=== PATIENT | female | born 1970 | race Hispanic/Latino ===

== ENCOUNTER 2024-12-27 07:31 | Inpatient (IN) | payer SELFPAY ==
[~2024-12-27] VITALS: Ht 165.1 cm; Wt 99.8 kg
--- NOTE | 2024-12-27 07:45 | ERN ---
General Chief Complaint: Altered Mental Status Stated Complaint: ALTERED MENTAL STATUS Time Seen by MD: 07:39 History of Present Illness Initial Comments 54-year-old female brought in by EMS from home for altered mentation. Normally GCS 15, last known well was last night before bed. Family woke up this morning and found the patient to be more lethargic. Patient does open her eyes and responds to pain. She was moving all limbs. She immediately falls back asleep. She does have a distended abdomen. She was swollen legs. All history was obtained by EMS, there is no family at bedside and patient was unable to provide a history. EMS reports history of diabetes and gastritis. Vital signs of 140/73, 97, 18, 99% on room air Allergies: Coded Allergies: Penicillins (Unverified Allergy, Unknown, 12/27/24) Past Medical History Past Medical History: Diabetes-Type II, GERD Past Surgical History: Unknown ROS Dictation Unable to obtain due to patient's altered mentation Physical Exam Physical Exam Dictation VITAL SIGNS: Reviewed. GENERAL APPEARANCE: Lethargic HEAD AND FACE: Non-traumatic. EYES: PERRL, pink conjunctivas, eyelid no trauma, anterior chamber clear. EARS: Pinnas intact and no signs of trauma or erythema. Ear canals clear and no discharge. TMs no erythema. NOSE: No discharge, no bleeding. OROPHARYNX: Mouth normal, teeth no caries, tongue pink. Pharynx clear, no erythema. Tonsils no exudates, no abscesses noted. Mucous membrane moist. NECK: Supple, non-tender, no thyromegaly, no masses, no JVD, no bruits. BREAST: Deferred. CHEST: No tenderness, no crepitus, no paradoxical movement, no retractions. LUNGS: Clear, well-ventilated, symmetric, no rales, no wheezing, no rhonchi, no stridor, good breath sounds bilaterally. HEART: Regular rate, regular rhythm, no murmur, no gallops. VASCULAR: No peripheral edema. ABDOMEN: Distended abdomen GENITAL: Deferred. NEUROLOGICAL: Withdrawals from pain, open eyes, does not make eye contact, moves all limbs MUSCULOSKELETAL: Neck nontender, full range of motion, back nontender, full range of motion. EXTREMITIES: Nontender, full range of motion. SKIN: Color pink, dry, no turgor, no rash, no lacerations, no abrasions, no contusions. LYMPHATICS: Deferred. Results Laboratory and Microbiology Lab and Micro Result Laboratory Tests Test 12/27/24 07:45 12/27/24 08:08 12/27/24 08:48 White Blood Count 5.1 K/uL (4.8-10.8) Red Blood Count 3.34 MIL/uL (4.00-5.50) L Hemoglobin 9.5 g/dL (12.0-16.0) L Hematocrit 29.8 % (36-48) L Mean Corpuscular Volume 89.2 fL (79-99) Mean Corpuscular Hemoglobin 28.4 pg (27.0-33.0) Mean Corpuscular Hemoglobin Concent 31.9 g/dL (32.0-36.0) L Red Cell Distribution Width 17.2 % (11.0-15.5) H Platelet Count 83 K/uL (130-400) L Mean Platelet Volume 11.1 fL (7.5-10.5) H Immature Granulocyte % (Auto) 0.4 % (0-1) Neutrophils (%) (Auto) 72.7 % (40.0-77.0) Lymphocytes (%) (Auto) 14.6 % (21.0-51.0) L Monocytes (%) (Auto) 9.3 % (3.0-13.0) Eosinophils (%) (Auto) 2.6 % (0.0-8.0) Basophils (%) (Auto) 0.4 % (0.0-5.0) Neutrophils # (Auto) 3.7 K/uL (1.8-7.7) Lymphocytes # (Auto) 0.7 K/uL (1.0-4.8) L Monocytes # (Auto) 0.5 K/uL (0.1-1.0) Eosinophils # (Auto) 0.13 K/uL (0.00-0.70) Basophils # (Auto) 0.02 K/uL (0.00-0.20) Absolute Immature Granulocyte (auto 0.02 K/uL (0-1) Nucleated Red Blood Cells 0.0 % (0.0-0.19) Prothrombin Time 11.6 SEC (9.6-11.6) Prothromb Time International Ratio 1.11 (0.85-1.15) Activated Partial Thromboplast Time 27.6 SEC (26.3-35.5) Sodium Level 138 mmol/L (136-145) Potassium Level 5.3 mmol/L (3.5-5.1) H Chloride Level 106 mmol/L (101-111) Carbon Dioxide Level 25 mmol/L (21-32) Blood Urea Nitrogen 20 mg/dL (7-18) H Creatinine 1.3 mg/dL (0.5-1.0) H Glomerular Filtration Rate Calc 49 mL/min (>90) Random Glucose 261 mg/dL (70-105) H Lactic Acid Level 2.4 mmol/L (0.8-2.5) Total Calcium 8.9 mg/dL (8.5-10.1) Total Bilirubin 1.4 mg/dL (0.2-1.0) H Direct Bilirubin 0.3 mg/dL (0.0-0.3) Aspartate Amino Transf (AST/SGOT) 51 U/L (10-37) H Alanine Aminotransferase (ALT/SGPT) 22 U/L (12-78) Alkaline Phosphatase 390 U/L (50-136) H Ammonia 162 umol/L (11-32) *H Total Creatine Kinase 94 U/L (21-232) Troponin I High Sensitivity 6.4 ng/L (4-50) Total Protein 7.6 g/dL (6.0-8.3) Albumin 2.2 g/dL (3.5-5.0) L Lipase 33 U/L (16-77) Serum Alcohol < 3 mg/dL (0-10) Whole Blood Glucose 241 MG/DL (70-110) H Urine Opiates Screen NEGATIVE (NEGATIVE) Urine Barbiturates Screen NEGATIVE (NEGATIVE) Urine Phencyclidine Screen NEGATIVE (NEGATIVE) Urine Amphetamines Screen NEGATIVE (NEGATIVE) Urine Benzodiazepines Screen NEGATIVE (NEGATIVE) Urine Cocaine Screen NEGATIVE (NEGATIVE) Urine Marijuana (THC) Screen NEGATIVE (NEGATIVE) MDM CC: Altered mentation Historian: EMS, patient was obtunded and there is no family at bedside Comorbidities: Only known as gastritis and diabetes per EMS. Patient does have stigmata of liver cirrhosis. Limitations by social determinants of health: None Differential diagnosis: Hepatic encephalopathy, encephalopathy, stroke, sepsis, brain bleed, drug abuse, intoxication, other EKG: Sinus rhythm, rate 98, normal axis, good R-wave progression, intervals stable no STEMI. CXR (independently ordered and interpreted by me): No cardiomegaly pleural effusions or focal infiltrates. CT head without contrast ( independently interpreted by me): No acute bleeding or abnormalities. CT abdomen and pelvis without contrast ( independently interpreted by me): Ascites. Labs (independently interpreted by me ): Normocytic anemia hemoglobin 9.5, thrombocytopenia platelets of 80. Chemistry shows potassium 5.3, LOREN. Hyperglycemia. Symptoms are most consistent with hepatic encephalopathy, new onset liver cirrhosis. Family denies any history of liver disease, but reports that the patient's father had similar presentation that this age. She was not an alcohol abuser or a drug abuser and she was had no history of hepatitis according to the family. Treatment in ED: rectal lactulose, IV Lasix We will admit for new onset ascites, hepatic encephalopathy Consultation: Hospitalist for admission ED Course Orders Procedure Category Date Status Time Ammonia LAB 12/27/24 Complete 07:40 Cardiac Panel LAB 12/27/24 Complete 07:40 Cbc With Differential LAB 12/27/24 Complete 07:40 Basic Metabolic Panel LAB 12/27/24 Complete 07:40 Prothrombin Time With LAB 12/27/24 Complete INR 07:40 Partial LAB 12/27/24 Complete Thromboplastin Time 07:40 Urinalysis Profile LAB 12/27/24 In Process 07:40 Ct Head/Brain W/O CT 12/27/24 Resulted Contrast 07:40 Hepatic Function Panel LAB 12/27/24 Complete 07:40 Drug Screen Urine LAB 12/27/24 In Process 07:40 Alcohol, Blood LAB 12/27/24 Complete 07:40 Ct Abdomen/Pelvis W/O CT 12/27/24 Resulted Contrast 07:40 Lipase LAB 12/27/24 Complete 07:40 Lactic Acid LAB 12/27/24 Complete 07:40 Blood Cult SHAMIR 12/27/24 In Process 07:40 Chest 1vw RAD 12/27/24 Resulted 07:40 12 Lead Ekg Tracing- EKG 12/27/24 Complete Technical 07:40 Lactulose 20 Gm/30 Ml PHA 12/27/24 Complete Udcup (Constulose 08:30 Nurse Driven [place] MANJINDER 12/27/24 In Process Removal Pro 08:26 Furosemide 40mg Vial PHA 12/27/24 Logged (Lasix 40mg Vial) 10:00 Current Medications Medications (Trade) Dose Ordered Sig/Dora Route PRN Reason Start Time Stop Time Status Last Admin Dose Admin Furosemide (LASix 40MG VIAL) 40 mg ONCE ONCE IV 12/27/24 10:00 12/27/24 10:01 UNV Lactulose (Constulose 20gm/ 30ml Udcup) 200 gm ONCE ONCE SC 12/27/24 08:30 12/27/24 08:31 DC 12/27/24 09:23 Vital Signs Date Time Temp Pulse Resp B/P (MAP) Pulse Ox O2 Delivery O2 Flow Rate FiO2 12/27/24 08:02 97.5 99 17 123/57 100 Room Air* 0 21 12/27/24 07:35 97.9 91 18 140/73 98 Room Air 0 DX & DISP Disposition: Inpatient Departure Impression: Primary Impression: Hepatic encephalopathy Additional Impressions: Ascites, Normocytic anemia, LOREN (acute kidney injury), Hyperglycemia, Thrombocytopenia Critical Time: 30 minutes (Critical Care Procedure NoteAuthorized and Performed by: meTotal critical care time: Approximately 36 minutesDue to a high probability of clinically significant, life threatening deterioration, the patient required my highest level of preparedness to intervene emergently and I personally spent this critical care time directly and personally managing the patient. This critical care time included obtaining a history; examining the patient; pulse oximetry; ordering and review of studies; arranging urgent treatment with development of a management plan; evaluation of patient's response to treatment; frequent reassessment; and, discussions with other providers.This critical care time was performed to assess and manage the high probability of imminent, life-threatening deterioration that could result in multi-organ failure. It was exclusive of separately billable procedures and treating other patients and teaching time.Please see MDM section and the rest of the note for further information on patient assessment and treatment.) Condition: Stable Referrals: NONE (PCP) HERBERTH JOHN DO Dec 27, 2024 07:45
[2024-12-27 08:00] LABS: BASOPHILS # (AUTO) 0.02 K/uL (0.00-0.20); BASOPHILS % (AUTO) 0.4 % (0.0-5.0); EOSINOPHILS # (AUTO) 0.13 K/uL (0.00-0.70); EOSINOPHILS % (AUTO) 2.6 % (0.0-8.0); HEMATOCRIT 29.8 % (36-48); IMMATURE GRANULOCYTE ABSOLUTE 0.02 K/uL (0-1); LYMPHOCYTES # (AUTO) 0.7 K/uL (1.0-4.8); LYMPHOCYTES % (AUTO) 14.6 % (21.0-51.0); MEAN CORPUSCULAR HEMOGLOBIN 28.4 pg (27.0-33.0); MEAN CORPUSCULAR HGB CONC 31.9 g/dL (32.0-36.0); MEAN CORPUSCULAR VOLUME 89.2 fL (79-99); MONOCYTES # (AUTO) 0.5 K/uL (0.1-1.0); MONOCYTES % (AUTO) 9.3 % (3.0-13.0); NEUTROPHILS # (AUTO) 3.7 K/uL (1.8-7.7); NEUTROPHILS % (AUTO) 72.7 % (40.0-77.0); PLATELET COUNT (AUTO) 83 K/uL (130-400); RED BLOOD CELL COUNT(AUTO) 3.34 MIL/uL (4.00-5.50); RED CELL DISTRIBUTION WIDTH 17.2 % (11.0-15.5); WHITE BLOOD COUNT (AUTO) 5.1 K/uL (4.8-10.8)
[2024-12-27 08:06] LABS: INR 1.11 (0.85-1.15); PROTHROMBIN TIME 11.6 SEC (9.6-11.6)
[2024-12-27 08:07] LABS: CARBON DIOXIDE 25 mmol/L (21-32); CHLORIDE 106 mmol/L (101-111); CREATININE 1.3 mg/dL (0.5-1.0); GLOMERULAR FILTR. RATE CALC 49 mL/min (>90); GLUCOSE,RANDOM 261 mg/dL (70-105); POTASSIUM 5.3 mmol/L (3.5-5.1); SODIUM SERUM 138 mmol/L (136-145); UREA NITROGEN, BLOOD 20 mg/dL (7-18)
[2024-12-27 08:08] LABS: PARTIAL THROMBOPLASTIN TIME 27.6 SEC (26.3-35.5)
[2024-12-27 08:11] LABS: ALANINE AMINOTRANSFERASE 22 U/L (12-78); ALBUMIN 2.2 g/dL (3.5-5.0); ASPARTATE AMINOTRANSFERASE 51 U/L (10-37); BILIRUBIN,DIRECT 0.3 mg/dL (0.0-0.3); BILIRUBIN,TOTAL 1.4 mg/dL (0.2-1.0); CREATINE KINASE, TOTAL 94 U/L (21-232); TOTAL PROTEIN, SERUM 7.6 g/dL (6.0-8.3)
[2024-12-27 08:12] LABS: ALCOHOL, BLOOD < 3 mg/dL (0-10)
[2024-12-27 08:14] LABS: AMMONIA 162 umol/L (11-32)
--- NOTE | 2024-12-27 08:24 | EKG ---
[facility] Test Date: 2024-12-27 Test Time: 07:54:34 Pat Name: SINGH DREW Department: [facility] Room: ED Gender: F Business Development Specialist: [id number] : 1970 Requested By: HERBERTH JOHN Order Number: [id number] Reading MD: Jeovanny Garber Measurements Intervals [place] Rate: 98 P: 31 WI: 168 QRS: -12 QRSD: 84 T: 4 QT: 372 QTc: 474 Interpretive Statements Sinus rhythm No previous ECG available for comparison Electronically Signed On 12-27-2024 18:57:38 FINANCIAL ANALYST INTERN by Jeovanny Garber Please click the below link to view image of tracing.
--- NOTE | 2024-12-27 09:06 | HMCIMG ---
CHEST 1VW HISTORY: Rest pain COMPARISON: None FINDINGS: A frontal projection of the chest was obtained. Mild bilateral pulmonary infiltrates are seen may be related to mild pulmonary vascular congestion with possible superimposed pneumonitis. The heart is borderline enlarged. Degenerative changes are seen. No evidence of aortic calcification is seen. IMPRESSION: 1. Mild bilateral pulmonary infiltrates are seen may be related to mild pulmonary vascular congestion with possible superimposed pneumonitis.
--- NOTE | 2024-12-27 09:18 | HMCIMG ---
CT HEAD/BRAIN W/O CONTRAST HISTORY: Altered mental status COMPARISON: None TECHNIQUE: Multiple sequential axial images of the head were obtained from the base of the skull through vertex. Patient was not given contrast through intravenous route. FINDINGS: The ventricles and extraventricular CSF spaces are nondilated for patient's age. There is no midline shift, mass effect or herniation. No acute intracranial bleed is seen. Visualized portion of the paranasal sinuses are grossly within normal limits. There is left maxillary sinus polyp versus mucus retention cyst. IMPRESSION: 1. No acute intracranial bleed is seen. CT was performed with one or more following dose reduction techniques: automated exposure control, adjustment of the mA and kv according to patient's size, or use of a iterative reconstruction technique.
[2024-12-27] MEDS: LACTULOSE 20 GM/30 ML UDCUP PR ONE (09:23)
[2024-12-27 09:24] LABS: AMPHET/METH SCREEN,URINE NEGATIVE (NEGATIVE); BARBITURATE SCREEN, URINE NEGATIVE (NEGATIVE); BENZODIAZEPINES SCREEN,URINE NEGATIVE (NEGATIVE); CANNABINOID SCREEN,URINE NEGATIVE (NEGATIVE); COCAINE SCREEN,URINE NEGATIVE (NEGATIVE); OPIATE SCREEN,URINE NEGATIVE (NEGATIVE); PHENCYCLIDINE SCREEN,URINE NEGATIVE (NEGATIVE)
--- NOTE | 2024-12-27 09:29 | HMCIMG ---
CT ABDOMEN/PELVIS W/O CONTRAST HISTORY: Altered mental status COMPARISON: None TECHNIQUE: Multiple sequential axial images of the abdomen and pelvis were obtained from the dome of the diaphragm through symphysis pubis. Patient was not given contrast through intravenous route. Oral contrast was not given. FINDINGS: No pleural effusion is seen bilaterally. There are interstitial fibrosis with tiny 4 mm right lower pulmonary nodule. Bibasilar linear atelectasis changes are seen. Degenerative changes of the thoracolumbar spine are present. The heart is not enlarged. Cirrhotic changes of the liver are noted. Liver measures 13 cm. Spleen is enlarged measuring 16 cm. Postcholecystectomy changes are seen. There are abdominal varices and esophageal varices. There is right lower pole renal mass measuring 6.4 x 5.2 cm. There is 15 x 4 mm renal stone in the right renal pelvis. Adrenal glands and pancreas are unremarkable. Moderate hydronephrosis is seen. No hydronephrosis is seen on the left. No evidence of renal stone is seen. Fecal material is seen in the colon. There are normal size retroperitoneal and mesenteric lymph nodes. There is ascites. Atherosclerotic changes are present. Pelvic sidewalls are symmetric bilaterally. Bladder is poorly distended with Vallejo catheter. IMPRESSION: 1. Cirrhotic liver with enlarged spleen and abdominal varices. There is ascites. There is right lower pole renal mass measuring 6.4 x 5.2 cm may be related to renal cell carcinoma. Right renal pelvic stone is seen. There is right hydronephrosis. Tiny 4 mm right lower pulmonary nodule is seen. CT was performed with one or more following dose reduction techniques: automated exposure control, adjustment of the mA and kv according to patient's size, or use of a iterative reconstruction technique.
[2024-12-27 09:37] LABS: APPEARANCE,URINE CLEAR (CLEAR); BILIRUBIN,URINE NEGATIVE (NEGATIVE); COLOR,URINE LIGHT-YELLOW (YELLOW); GLUCOSE, URINE (UA) 150 mg/dL (NEGATIVE); KETONES,URINE NEGATIVE (NEGATIVE); LEUKOCYTE ESTERASE ,URINE NEGATIVE Leu/uL (NEGATIVE); NITRATE,URINE NEGATIVE (NEGATIVE); OCCULT BLOOD,URINE LARGE (NEGATIVE); PH,URINE 6.5 (5.0-8.0); PROTEIN,URINE NEGATIVE (NEGATIVE); UROBILINOGEN,URINE 0.2 mg/dL (0.2-1.0)
[2024-12-27 09:40] LABS: ADD UA MICROSCOPIC YES
[2024-12-27 09:42] LABS: BACTERIA,URINE RARE /HPF (None Seen); SQUAMOUS EPITHELIAL CELL,UR RARE /HPF (0-2); WBC,URINE 0-1 /HPF (0-1)
[2024-12-27] MEDS: furoSEMIDE 40MG VIAL IV ONE (10:02)
--- NOTE | 2024-12-27 10:52 | HP ---
[facility] HISTORY AND PHYSICAL Date of Service: Dec 27, 2024 Time of Service: 10:27 HISTORY OF PRESENT ILLNESS: [ ] This is a 54-year-old female with a significant medical history of hypertension, hyperlipidemia and diabetes was brought in by EMS from home given to altered mentation. Unable to obtain history data given to patient is lethargic we will obtain history from ER primary nurse and ER note. Apparently earlier this morning family found patient to be lethargic unable to open eyes and respond to pain decided to call EMS to bring patient to ER for further evaluation and treatment. Patient is present with distended abdomen, bilateral lower extremity edematous. ER workup was done revealed CT abdomen pelvis right lower pole renal mass measuring 6.4 x 5.2 cm may be related to renal cell carcinoma. Ammonia level 162 patient was given a lactulose enema. Family reported has no medical history of alcohol abuse. Labs reviewed potassium 5.3 BUN 20 creatinine 1.3 Glucose 241total bilirubin 1.4 AST51 alkaline phosphate 390 ammonia level 162 albumin 2.2 CBC hemoglobin 9.5 hematocrit 29.8 Platelets 83 Urinalysis negative Imaging: CT head was negative no acute intracranial bleed is seen Patient was seen in room ER 20. Patient is lethargic head of the bed at 45 on room air. We will repeat lactulose enema at 2:00 p.m. and ammonia level. 1330 patient is more awake alert oriented was able to answer my questions. No need for 2nd enema of lactulose we will start lactulose p.o.. REVIEW OF SYSTEMS Unable to obtain ROS given to hepatic encephalopathy. PAST MEDICAL HISTORY: [ ] Refer to HPI PAST SURGICAL HISTORY: [ ] Unable to obtain due to encephalopathy PAST SOCIAL HISTORY: [ ] As per ER note no history of alcohol or smoking tobacco products FAMILY HISTORY: [ ] No family at bedside Coded Allergies: Penicillins (Unverified Allergy, Unknown, 12/27/24) PHYSICAL EXAM GENERAL APPEARANCE: Lethargic unable to keep eyes open. and oriented, in no acute cardiopulmonary distress. NEUROLOGICAL: Cranial nerves II-XII grossly intact. Motor is 5/5 in bilateral upper and lower extremities proximal to distal. No sensory deficits. HEENT: Face is symmetric. Pupils are equal and reactive. Extraocular movements are intact. NECK: Supple. No JVD. No thyromegaly. No submental, submandibular, pre- /postauricular, occipital or supraclavicular lymphadenopathy. CHEST: Normal chest expansion. No Telemetry. LUNGS: Absence of any rales, rhonchi or any wheezing. CARDIOVASCULAR: Regular. S1 and S2 normal. No appreciable rubs, murmurs or gallops. ABDOMEN: Soft, nontender, and distended with ascites. There is no rebound, voluntary guarding, or rigidity. : Deferred. No Vallejo. EXTREMITIES: Non-edematous and not cyanotic. No clubbing. Good capillary refill. Edematous to lower extremity SKIN: No skin breakdown. Vital Sign (Last 24 Hours) 12/27/24 12/27/24 08:02 09:59 Temp 97.5 Pulse 105 Resp 17 B/P (MAP) 104/70 Pulse Ox 97 O2 Delivery Room Air* O2 Flow Rate 0 FiO2 21 LABS: Laboratory: Test 12/27/24 08:48 12/27/24 08:08 12/27/24 07:45 Range/Units Urine Color LIGHT-YELLOW YELLOW Urine Appearance CLEAR CLEAR Urine pH 6.5 5.0-8.0 Urine Specific [place] 1.007 1.001-1.031 Urine Protein NEGATIVE NEGATIVE mg/dL Urine Glucose (UA) 150 H NEGATIVE mg/dL Urine Ketones NEGATIVE NEGATIVE mg/dL Urine Occult Blood LARGE H NEGATIVE Urine Nitrate NEGATIVE NEGATIVE Urine Bilirubin NEGATIVE NEGATIVE mg/dL Urine Urobilinogen 0.2 0.2-1.0 mg/dL Urine Leukocyte Esterase NEGATIVE NEGATIVE Eva/uL Urine RBC 6-10 H 0-1 /HPF Urine WBC 0-1 0-1 /HPF Urine Squamous Epithelial Cells RARE 0-2 /HPF Urine Bacteria RARE None Seen /HPF Urine Opiates Screen NEGATIVE NEGATIVE Urine Barbiturates Screen NEGATIVE NEGATIVE Urine Phencyclidine Screen NEGATIVE NEGATIVE Urine Amphetamines Screen NEGATIVE NEGATIVE Urine Benzodiazepines Screen NEGATIVE NEGATIVE Urine Cocaine Screen NEGATIVE NEGATIVE Urine Marijuana (THC) Screen NEGATIVE NEGATIVE Whole Blood Glucose 241 H 70-110 MG/DL White Blood Count 5.1 4.8-10.8 K/uL Red Blood Count 3.34 L 4.00-5.50 MIL/uL Hemoglobin 9.5 L 12.0-16.0 g/dL Hematocrit 29.8 L 36-48 % Mean Corpuscular Volume 89.2 79-99 fL Mean Corpuscular Hemoglobin 28.4 27.0-33.0 pg Mean Corpuscular Hemoglobin Concent 31.9 L 32.0-36.0 g/dL Red Cell Distribution Width 17.2 H 11.0-15.5 % Platelet Count 83 L 130-400 K/uL Mean Platelet Volume 11.1 H 7.5-10.5 fL Immature Granulocyte % (Auto) 0.4 0-1 % Neutrophils (%) (Auto) 72.7 40.0-77.0 % Lymphocytes (%) (Auto) 14.6 L 21.0-51.0 % Monocytes (%) (Auto) 9.3 3.0-13.0 % Eosinophils (%) (Auto) 2.6 0.0-8.0 % Basophils (%) (Auto) 0.4 0.0-5.0 % Neutrophils # (Auto) 3.7 1.8-7.7 K/uL Lymphocytes # (Auto) 0.7 L 1.0-4.8 K/uL Monocytes # (Auto) 0.5 0.1-1.0 K/uL Eosinophils # (Auto) 0.13 0.00-0.70 K/uL Basophils # (Auto) 0.02 0.00-0.20 K/uL Absolute Immature Granulocyte (auto 0.02 0-1 K/uL Nucleated Red Blood Cells 0.0 0.0-0.19 % Prothrombin Time 11.6 9.6-11.6 SEC Prothromb Time International Ratio 1.11 0.85-1.15 Activated Partial Thromboplast Time 27.6 26.3-35.5 SEC Sodium Level 138 136-145 mmol/L Potassium Level 5.3 H 3.5-5.1 mmol/L Chloride Level 106 101-111 mmol/L Carbon Dioxide Level 25 21-32 mmol/L Blood Urea Nitrogen 20 H 7-18 mg/dL Creatinine 1.3 H 0.5-1.0 mg/dL Glomerular Filtration Rate Calc 49 >90 mL/min Random Glucose 261 H 70-105 mg/dL Lactic Acid Level 2.4 0.8-2.5 mmol/L Total Calcium 8.9 8.5-10.1 mg/dL Total Bilirubin 1.4 H 0.2-1.0 mg/dL Direct Bilirubin 0.3 0.0-0.3 mg/dL Aspartate Amino Transf (AST/SGOT) 51 H 10-37 U/L Alanine Aminotransferase (ALT/SGPT) 22 12-78 U/L Alkaline Phosphatase 390 H 50-136 U/L Ammonia 162 *H 11-32 umol/L Total Creatine Kinase 94 21-232 U/L Troponin I High Sensitivity 6.4 4-50 ng/L Total Protein 7.6 6.0-8.3 g/dL Albumin 2.2 L 3.5-5.0 g/dL Lipase 33 16-77 U/L Serum Alcohol < 3 0-10 mg/dL DIAGNOSTICS / RADIOLOGY: [ ] REASON: altered ORDERING PHYSICIAN: HERBERTH JOHN DO PROCEDURE: ABD PEL WO - CT ABDOMEN/PELVIS W/O CONTRAST CT ABDOMEN/PELVIS W/O CONTRAST HISTORY: Altered mental status COMPARISON: None TECHNIQUE: Multiple sequential axial images of the abdomen and pelvis were obtained from the dome of the diaphragm through symphysis pubis. Patient was not given contrast through intravenous route. Oral contrast was not given. FINDINGS: No pleural effusion is seen bilaterally. There are interstitial fibrosis with tiny 4 mm right lower pulmonary nodule. Bibasilar linear atelectasis changes are seen. Degenerative changes of the thoracolumbar spine are present. The heart is not enlarged. Cirrhotic changes of the liver are noted. Liver measures 13 cm. Spleen is enlarged measuring 16 cm. Postcholecystectomy changes are seen. There are abdominal varices and esophageal varices. There is right lower pole renal mass measuring 6.4 x 5.2 cm. There is 15 x 4 mm renal stone in the right renal pelvis. Adrenal glands and pancreas are unremarkable. Moderate hydronephrosis is seen. No hydronephrosis is seen on the left. No evidence of renal stone is seen. Fecal material is seen in the colon. There are normal size retroperitoneal and mesenteric lymph nodes. There is ascites. Atherosclerotic changes are present. Pelvic sidewalls are symmetric bilaterally. Bladder is poorly distended with Vallejo catheter. IMPRESSION: 1. Cirrhotic liver with enlarged spleen and abdominal varices. There is ascites. There is right lower pole renal mass measuring 6.4 x 5.2 cm may be related to renal cell carcinoma. Right renal pelvic stone is seen. There is right hydronephrosis. Tiny 4 mm right lower pulmonary nodule is seen. REASON: altered ORDERING PHYSICIAN: HERBERTH JOHN DO PROCEDURE: HEAD WO - CT HEAD/BRAIN W/O CONTRAST CT HEAD/BRAIN W/O CONTRAST HISTORY: Altered mental status COMPARISON: None TECHNIQUE: Multiple sequential axial images of the head were obtained from the base of the skull through vertex. Patient was not given contrast through intravenous route. FINDINGS: The ventricles and extraventricular CSF spaces are nondilated for patient's age. There is no midline shift, mass effect or herniation. No acute intracranial bleed is seen. Visualized portion of the paranasal sinuses are grossly within normal limits. There is left maxillary sinus polyp versus mucus retention cyst. IMPRESSION: 1. No acute intracranial bleed is seen. ASSESSMENT: Acute hepatic encephalopathy POA New onset liver cirrhosis POA Anemia secondary to liver cirrhosis Thrombocytopenia POA Ascites Bilateral lower extremity edematous right lower pole renal mass measuring 6.4 x 5.2 cm may evidenced by CT abdomen pelvis POA be related to renal cell carcinoma Hyperkalemia LOREN possible ATN mild LFT's elevation elevated TB. Diabetes type 2 with hyperglycemia POA Hyperammonemia POA Severe protein calorie malnutrition POA Chronic problems Diabetes, hyperlipidemia, hypertension PLAN: [ ] Admit: Medical-surgical floor condition: Guarded Status: Full code IVF: NS75 mL/hour Consultants Nephrology, GI, Hematology Antibiotics: None Test: sonogram Renal, ABD US complete Medication lactulose ammonia at 2:00 p.m. then lactulose 30 g every 6 hours p.o. Rifaximin 500 b.i.d. we will be started tomorrow when patient is more awake Ongoing surveillance ammonia level Diet NPO; Aspiration precautions Oxygen since supplement to keep O2 sats above 92%. Labs cbc, cmp, mag+ Replace electrolytes as needed as per protocol to keep potassium above 4.0 magnesium 2.0. We will monitor H&H and platelets transfuse as needed to keep hemoglobin above 7.0 Avoid blood thinners monitor acute bleeding. A.c. HS monitoring with sliding scale coverage Avoid NSAIDs strict I&Os PRN: MEDICATIONS Tylenol 650 mg po every 4 hrs for fever Zofran 4 mg IV every 6 hrs for n/v Hydralazine 5 mg IV every 4 hrs systolic pressure > 160 bowel regiment: lactulose 20 gm PO BID PRN constipation Supportive measures: DVT ppx, GI ppx all questions answered time spent: > 35 min Supervising MD: Dr. Millan c/d This document was generated in part using voice recognition software, occasional wrong word or sound alike substitutions may have occurred due to the inherent limitations of voice recognition software. Read the chart carefully and recognize using context, where the substitutions have occurred. Although every effort was made to edit the content, senior cisco network engineer and typing errors may occur ADVANCED CARE PLANNING 1. Which of the following were discussed? Hospice Care - Yes / No Therapeutic options - Yes / No Advance Directives - Yes / No Other discussions - 2. Discussed with who? 3. Voluntary nature of this service was explained to the patient? Yes / No 4. Amount of time spent - 5. Reviewed by Physician? (if this service was performed by NPP) Yes / No ATTESTATION BY PHYSICIAN I have seen and examined the patient. I reviewed the documentation, medical decision making, and treatment plan as noted by the mid-level provider above. I agree with the findings and plan of care. LEANDER MILLAN MD, ELIZABETH NP Dec 27, 2024 10:51
[2024-12-27] MEDS ORDERED: MAGNESIUM 2GM PREMIX 50ML 50 ML IV PRN (11:00)
[2024-12-27] MEDS ORDERED: PoTASSium chloRIDE 20MEQ/100ML 100 ML IV PRN (11:00)
[2024-12-27] MEDS: INSULIN humuLIN R 100 UNIT/ML 3ML SQ SCH (11:30)
[2024-12-27] MEDS: morPHINE 2 MG SYG IVP ONE (13:16)
--- NOTE | 2024-12-27 13:58 | CONS ---
GASTROENTEROLOGY CONSULTATION NOTE Date of Consultation: Dec 27, 2024 Time of Consultation: 13:58 History of Present Illness: This is a 54-year-old female with past medical history of hypertension, hyperlipidemia and diabetes who is presenting due to altered mental status. Patient was lethargic on admission started on lactulose. Patient denies regular doctor visits. She was found to have elevated ammonia levels and elevated LFTs. Labs consistent with cirrhosis. She denies any knowledge of cirrhosis prior. Denies alcohol abuse. She does report history of cirrhosis in her father. She does have ascites. Review of Systems: CONSTITUTIONAL: No malaise or change in sensation of wellbeing. ENMT: No rhinorrhea, otorrhea, sinus pain, ear ache. CARDIOVASCULAR: No angina, palpitations, orthopnea or paroxysmal dyspnea. RESPIRATORY: No SOB. GASTROINTESTINAL: No abdominal pain, nausea, vomiting, diarrhea, hematemesis, melena or change in the patient's habitual bowel movements consistency/number. GENITOURINARY: No dysuria, hematuria or change in bladder continence. MUSCULOSKELETAL: No new muscle pain or decrease in muscular strength. No new joint swelling, redness or tenderness. SKIN: No new rash. Past Medical History: [ ] Past Surgical History: [ ] Past Social History: [ ] Family History: [ ] Coded Allergies: Penicillins (Unverified Allergy, Unknown, 12/27/24) Physical Exam: GEN: Awake, alert, oriented in person, time and place, and in no acute distress. HEENT: No sinus tenderness. Tympanic membranes were not examined. No rhinorrhea. Oral pharyngeal mucosa is pink, moist and within normal limits. Neck is supple with no cervical lymphadenopathy, thyromegaly or JVD. CHEST: Inspection, palpation and percussion of the chest were unremarkable. Lung auscultation revealed normal breath sounds bilaterally. CARDIAC: PMI is within normal limits. Heart sounds are regular. Normal S1, S2. No gallop or murmur. ABD: Soft, non-tender and not distended. No peritoneal signs on palpation. No organomegaly. Normal bowel sounds. EXT: No cyanosis or clubbing. No edema. SKIN: Intact. No rashes. JOINTS: No evidence of synovitis or acute arthritis. NEURO: Alert and oriented to name, place and person. Cranial nerve examination is unremarkable. No focal motor deficits. Normal speech. Gait is normal. Strength is normal. Vital Sign (Last 24 Hours) 12/27/24 12/27/24 08:02 09:59 Temp 97.5 Pulse 105 Resp 17 B/P (MAP) 104/70 Pulse Ox 97 O2 Delivery Room Air* O2 Flow Rate 0 FiO2 21 Laboratory: [ ] Laboratory: Test 12/27/24 12:16 12/27/24 11:03 12/27/24 08:48 12/27/24 07:45 Range/Units Whole Blood Glucose 227 H 70-110 MG/DL Lactic Acid Level 1.6 0.8-2.5 mmol/L Urine Color LIGHT-YELLOW YELLOW Urine Appearance CLEAR CLEAR Urine pH 6.5 5.0-8.0 Urine Specific [place] 1.007 1.001-1.031 Urine Protein NEGATIVE NEGATIVE mg/dL Urine Glucose (UA) 150 H NEGATIVE mg/dL Urine Ketones NEGATIVE NEGATIVE mg/dL Urine Occult Blood LARGE H NEGATIVE Urine Nitrate NEGATIVE NEGATIVE Urine Bilirubin NEGATIVE NEGATIVE mg/dL Urine Urobilinogen 0.2 0.2-1.0 mg/dL Urine Leukocyte Esterase NEGATIVE NEGATIVE Eva/uL Urine RBC 6-10 H 0-1 /HPF Urine WBC 0-1 0-1 /HPF Urine Squamous Epithelial Cells RARE 0-2 /HPF Urine Bacteria RARE None Seen /HPF Urine Opiates Screen NEGATIVE NEGATIVE Urine Barbiturates Screen NEGATIVE NEGATIVE Urine Phencyclidine Screen NEGATIVE NEGATIVE Urine Amphetamines Screen NEGATIVE NEGATIVE Urine Benzodiazepines Screen NEGATIVE NEGATIVE Urine Cocaine Screen NEGATIVE NEGATIVE Urine Marijuana (THC) Screen NEGATIVE NEGATIVE White Blood Count 5.1 4.8-10.8 K/uL Red Blood Count 3.34 L 4.00-5.50 MIL/uL Hemoglobin 9.5 L 12.0-16.0 g/dL Hematocrit 29.8 L 36-48 % Mean Corpuscular Volume 89.2 79-99 fL Mean Corpuscular Hemoglobin 28.4 27.0-33.0 pg Mean Corpuscular Hemoglobin Concent 31.9 L 32.0-36.0 g/dL Red Cell Distribution Width 17.2 H 11.0-15.5 % Platelet Count 83 L 130-400 K/uL Mean Platelet Volume 11.1 H 7.5-10.5 fL Immature Granulocyte % (Auto) 0.4 0-1 % Neutrophils (%) (Auto) 72.7 40.0-77.0 % Lymphocytes (%) (Auto) 14.6 L 21.0-51.0 % Monocytes (%) (Auto) 9.3 3.0-13.0 % Eosinophils (%) (Auto) 2.6 0.0-8.0 % Basophils (%) (Auto) 0.4 0.0-5.0 % Neutrophils # (Auto) 3.7 1.8-7.7 K/uL Lymphocytes # (Auto) 0.7 L 1.0-4.8 K/uL Monocytes # (Auto) 0.5 0.1-1.0 K/uL Eosinophils # (Auto) 0.13 0.00-0.70 K/uL Basophils # (Auto) 0.02 0.00-0.20 K/uL Absolute Immature Granulocyte (auto 0.02 0-1 K/uL Nucleated Red Blood Cells 0.0 0.0-0.19 % Prothrombin Time 11.6 9.6-11.6 SEC Prothromb Time International Ratio 1.11 0.85-1.15 Activated Partial Thromboplast Time 27.6 26.3-35.5 SEC Sodium Level 138 136-145 mmol/L Potassium Level 5.3 H 3.5-5.1 mmol/L Chloride Level 106 101-111 mmol/L Carbon Dioxide Level 25 21-32 mmol/L Blood Urea Nitrogen 20 H 7-18 mg/dL Creatinine 1.3 H 0.5-1.0 mg/dL Glomerular Filtration Rate Calc 49 >90 mL/min Random Glucose 261 H 70-105 mg/dL Total Calcium 8.9 8.5-10.1 mg/dL Total Bilirubin 1.4 H 0.2-1.0 mg/dL Direct Bilirubin 0.3 0.0-0.3 mg/dL Aspartate Amino Transf (AST/SGOT) 51 H 10-37 U/L Alanine Aminotransferase (ALT/SGPT) 22 12-78 U/L Alkaline Phosphatase 390 H 50-136 U/L Ammonia 162 *H 11-32 umol/L Total Creatine Kinase 94 21-232 U/L Troponin I High Sensitivity 6.4 4-50 ng/L Total Protein 7.6 6.0-8.3 g/dL Albumin 2.2 L 3.5-5.0 g/dL Lipase 33 16-77 U/L Serum Alcohol < 3 0-10 mg/dL Current Medications Medications (Trade) Dose Ordered Sig/Dora Route PRN Reason Start Time Stop Time Status Last Admin Dose Admin Insulin Human Regular (humuLIN R 100 UNIT/ML 3ML) INSULIN SLIDING SCAL... ACHS SQ 12/27/24 11:30 01/26/25 11:29 Lactulose (Constulose 20gm/ 30ml Udcup) 20 gm QID PO 12/27/24 17:00 01/26/25 16:59 Magnesium Sulfate 50 ml @ 0 mls/hr PROTOCOL PRN IV low mag level 12/27/24 11:00 01/26/25 10:59 Potassium Chloride 100 ml @ 50 mls/hr AD PRN IV POTASSIUM PROTOCOL 12/27/24 11:00 01/26/25 10:59 Rifaximin (Xifaxan) 550 mg BID PO 12/28/24 09:00 01/27/25 08:59 Diagnostics / Radiology: [COPY/PASTE HERE IF NO REPORTS PLEASE DELETE SECTION] Assessment: [ ] Plan: Paracentesis with fluid analysis Will obtain liver serologies CANDY LEBLANC [facility] Dec 27, 2024 13:58
--- NOTE | 2024-12-27 14:15 | HMCIMG ---
US VENOUS DOPPLER BILATERAL HISTORY: Swelling COMPARISON: None TECHNIQUE: Bilateral lower extremity venous Doppler ultrasound study was performed. FINDINGS: The common femoral, femoral, popliteal, and posterior tibial veins are visualized. Normal flow with augmentation and compressibilities are demonstrated on the right. Normal flow with compressibility is seen on the left. The greater saphenous veins are also seen and grossly patent. IMPRESSION: 1. No evidence of deep venous thrombosis is seen.
--- NOTE | 2024-12-27 14:16 | HMCIMG ---
US ABD LIMITED/ABD WALL REASON: ascites. COMPARISON: None TECHNIQUE: Limited abdominal ultrasound study was performed. FINDINGS: Small ascites fluid is seen. IMPRESSION: Small ascites fluid.
--- NOTE | 2024-12-27 15:42 | CONS ---
NEPHROLOGY CONSULTATION NOTE Date/Time Patient Seen: Dec 27, 2024 1430 Reason for Consultation: Renal failure HISTORY OF PRESENT ILLNESS: This is a 54-year-old female with a significant medical history of hypertension, hyperlipidemia and diabetes was brought in by EMS from home given to altered mentation. ER workup was done revealed CT abdomen pelvis right lower pole renal mass measuring 6.4 x 5.2 cm may be related to renal cell carcinoma. Ammonia level 162 patient was given a lactulose enema. Labs reviewed potassium 5.3 BUN 20 creatinine 1.3 Glucose 241total bilirubin 1.4 AST51 alkaline phosphate 390 ammonia level 162 albumin 2.2 CBC hemoglobin 9.5 hematocrit 29.8 Platelets 83 Urinalysis negative Imaging: CT head was negative no acute intracranial bleed is seen She was noted to have elevated BUN/creatinine We has been consulted for renal failure. Renal function is elevated Electrolytes are stable. She was seen in the emergency room REVIEW OF SYSTEMS: GENERAL: Generalized weakness NEUROLOGIC: Negative for any blurry vision, blind spots, double vision, facial asymmetry, dysphagia, dysarthria, hemiparesis, hemisensory deficits, vertigo, ataxia. HEENT: Negative for any head trauma, neck trauma, neck stiffness, photophobia, phonophobia, sinusitis, rhinitis. CARDIAC: Negative for any chest pain, dyspnea on exertion, paroxysmal nocturnal dyspnea, peripheral edema. PULMONARY: Negative for any shortness of breath, wheezing, COPD, or TB exposure. GASTROINTESTINAL: Negative for any abdominal pain, nausea, vomiting, bright red blood per rectum, melena. GENITOURINARY: Negative for any dysuria, hematuria, incontinence. INTEGUMENTARY: Negative for any rashes, cuts, insect bites. RHEUMATOLOGIC: Negative for any joint pains, photosensitive rashes, history of vasculitis or kidney problems. HEMATOLOGIC: Negative for any abnormal bruising, frequent infections or bleeding. PAST MEDICAL HISTORY: hypertension, hyperlipidemia and diabetes PAST SURGICAL HISTORY: Unable to obtain PAST SOCIAL HISTORY: Unable to obtain FAMILY HISTORY: Noncontributory PHYSICAL EXAM: GENERAL: Alert and oriented x 3. No acute distress. Well-nourished. EYES: EOMI. Anicteric. HENT: Moist mucous membranes. No scleral icterus. No cervical lymphadenopathy. LUNGS: Clear to auscultation bilaterally. No accessory muscle use. CARDIOVASCULAR: Regular rate and rhythm. No murmur. No JVD. ABDOMEN: Soft, non-tender and non-distended. No palpable masses. EXTREMITIES: No edema. Non-tender. SKIN: No rashes or lesions. Warm. NEUROLOGIC: No focal neurological deficits. CN II-XII grossly intact, but not individually tested. PSYCHIATRIC: Cooperative. Appropriate mood and affect. MEDICATIONS: [ ] Current Medications Medications (Trade) Dose Ordered Sig/Dora Route PRN Reason Start Time Stop Time Status Last Admin Dose Admin Insulin Human Regular (humuLIN R 100 UNIT/ML 3ML) INSULIN SLIDING SCAL... ACHS SQ 12/27/24 11:30 01/26/25 11:29 Lactulose (Constulose 20gm/ 30ml Udcup) 20 gm QID PO 12/27/24 17:00 01/26/25 16:59 Magnesium Sulfate 50 ml @ 0 mls/hr PROTOCOL PRN IV low mag level 12/27/24 11:00 01/26/25 10:59 Potassium Chloride 100 ml @ 50 mls/hr AD PRN IV POTASSIUM PROTOCOL 12/27/24 11:00 01/26/25 10:59 Rifaximin (Xifaxan) 550 mg BID PO 12/28/24 09:00 01/27/25 08:59 Vital Signs (last 8hr) Date Time Temp Pulse Resp B/P (MAP) Pulse Ox O2 Delivery O2 Flow Rate FiO2 12/27/24 09:59 105 17 104/70 97 Room Air* 0 21 12/27/24 08:02 97.5 99 17 123/57 100 Room Air* 0 21 DIAGNOSTICS / RADIOLOGY: REASON: ascites ORDERING PHYSICIAN: CHLOE SANABRIA NP PROCEDURE: ABD WALL - US ABD LIMITED/ABD WALL US ABD LIMITED/ABD WALL REASON: ascites. COMPARISON: None TECHNIQUE: Limited abdominal ultrasound study was performed. FINDINGS: Small ascites fluid is seen. IMPRESSION: Small ascites fluid. DICTATED BY: EDGAR JAVIER MD DATE: 12/27/24 5921 LABORATORY: [ ] Hematology Labs: Test 12/27/24 07:45 Range/Units White Blood Count 5.1 4.8-10.8 K/uL Red Blood Count 3.34 L 4.00-5.50 MIL/uL Hemoglobin 9.5 L 12.0-16.0 g/dL Hematocrit 29.8 L 36-48 % Mean Corpuscular Volume 89.2 79-99 fL Mean Corpuscular Hemoglobin 28.4 27.0-33.0 pg Mean Corpuscular Hemoglobin Concent 31.9 L 32.0-36.0 g/dL Red Cell Distribution Width 17.2 H 11.0-15.5 % Platelet Count 83 L 130-400 K/uL Mean Platelet Volume 11.1 H 7.5-10.5 fL Immature Granulocyte % (Auto) 0.4 0-1 % Neutrophils (%) (Auto) 72.7 40.0-77.0 % Lymphocytes (%) (Auto) 14.6 L 21.0-51.0 % Monocytes (%) (Auto) 9.3 3.0-13.0 % Eosinophils (%) (Auto) 2.6 0.0-8.0 % Basophils (%) (Auto) 0.4 0.0-5.0 % Neutrophils # (Auto) 3.7 1.8-7.7 K/uL Lymphocytes # (Auto) 0.7 L 1.0-4.8 K/uL Monocytes # (Auto) 0.5 0.1-1.0 K/uL Eosinophils # (Auto) 0.13 0.00-0.70 K/uL Basophils # (Auto) 0.02 0.00-0.20 K/uL Absolute Immature Granulocyte (auto 0.02 0-1 K/uL Nucleated Red Blood Cells 0.0 0.0-0.19 % Chemistry Labs: Test 12/27/24 12:16 12/27/24 11:03 12/27/24 07:45 Range/Units Whole Blood Glucose 227 H 70-110 MG/DL Lactic Acid Level 1.6 0.8-2.5 mmol/L Sodium Level 138 136-145 mmol/L Potassium Level 5.3 H 3.5-5.1 mmol/L Chloride Level 106 101-111 mmol/L Carbon Dioxide Level 25 21-32 mmol/L Blood Urea Nitrogen 20 H 7-18 mg/dL Creatinine 1.3 H 0.5-1.0 mg/dL Glomerular Filtration Rate Calc 49 >90 mL/min Random Glucose 261 H 70-105 mg/dL Total Calcium 8.9 8.5-10.1 mg/dL Total Bilirubin 1.4 H 0.2-1.0 mg/dL Direct Bilirubin 0.3 0.0-0.3 mg/dL Aspartate Amino Transf (AST/SGOT) 51 H 10-37 U/L Alanine Aminotransferase (ALT/SGPT) 22 12-78 U/L Alkaline Phosphatase 390 H 50-136 U/L Ammonia 162 *H 11-32 umol/L Total Creatine Kinase 94 21-232 U/L Troponin I High Sensitivity 6.4 4-50 ng/L Total Protein 7.6 6.0-8.3 g/dL Albumin 2.2 L 3.5-5.0 g/dL Lipase 33 16-77 U/L Coagulation Labs: Test 12/27/24 07:45 Range/Units Prothrombin Time 11.6 9.6-11.6 SEC Prothromb Time International Ratio 1.11 0.85-1.15 Activated Partial Thromboplast Time 27.6 26.3-35.5 SEC ASSESSMENT: Acute hepatic encephalopathy POA New onset liver cirrhosis POA Anemia secondary to liver cirrhosis Thrombocytopenia POA Ascites Bilateral lower extremity edematous right lower pole renal mass measuring 6.4 x 5.2 cm may evidenced by CT abdomen pelvis POA be related to renal cell carcinoma Hyperkalemia LOREN possible ATN mild LFT's elevation elevated TB. Diabetes type 2 with hyperglycemia POA Hyperammonemia POA Severe protein calorie malnutrition POA Chronic problems Diabetes, hyperlipidemia, hypertension PLAN: Labs, diagnostic, radiologic exams reviewed and interpreted by myself and supervising physician. We have reviewed external records in detail Consult urology if okay with primary team Start albumin x3 doses Require close monitoring of renal function and electrolytes Order CBC, CMP, uric acid, TSH complete iron panel, ferritin and electrolytes in am IV iron/Epogen as needed Continue with antibiotics BiPAP as necessary, for respiratory distress Monitor blood pressure adjust medication doses as needed Avoid hypotensive episodes May use Dilaudid 0.5 mg IV every 6 hours as needed for severe pain Monitor blood sugars Strict intake, output, and daily weight should be monitored Please renally adjust medications Avoid nephrotoxic and nonsteroidal drugs Avoid contrast if possible Will continue to monitor renal function, anemia, electrolytes Treatment plan discussed with patient Questions were answered We have discussed with the other team physicians in detail about the care plan We will continue to monitor the patient closely Thank you for allowing us to participate in the care of this patient ATTESTATION BY PHYSICIAN I have seen and examined the patient. I reviewed the documentation, medical decision making, and treatment plan as noted by the mid-level provider above. I agree with the findings and plan of care. MIK HOWE MD, ELIZABETH FNP Dec 27, 2024 15:42 MIK HOWE MD Dec 27, 2024 20:23
[2024-12-27] MEDS ORDERED: LACTULOSE 20 GM/30 ML UDCUP PR ONE (16:00)
--- NOTE | 2024-12-27 16:07 | NUR ---
arpan palliative senior np made aware of patient's tachycardia 120. patient denies cp. orders received. please refer to emr
[2024-12-27 17:18] LABS: % IRON SATURATION 38.9 % (22-44)
[2024-12-27] MEDS: metoPROLOL tartRATE 25 MG TAB PO ONE (17:52)
[2024-12-27] MEDS: LACTULOSE 20 GM/30 ML UDCUP PO SCH (17:53)
[2024-12-27] MEDS: metoPROLOL tartRATE 25 MG TAB PO SCH (21:21)
--- NOTE | 2024-12-27 21:45 | NUR ---
MED NOT RECON, NOT AVAIL AT BEDSIDE
--- NOTE | 2024-12-27 22:36 | CONS ---
CONSULT NOTE: This is a 54-year-old female with a significant medical history of hypertension, hyperlipidemia and diabetes was brought in by EMS from home given to altered mentation. Unable to obtain history data given to patient is lethargic we will obtain history from ER primary nurse and ER note. Apparently earlier this morning family found patient to be lethargic unable to open eyes and respond to pain decided to call EMS to bring patient to ER for further evaluation and treatment. Patient is present with distended abdomen, bilateral lower extremity edematous. ER workup was done revealed CT abdomen pelvis right lower pole renal mass measuring 6.4 x 5.2 cm may be related to renal cell carcinoma. Ammonia level 162 patient was given a lactulose enema. Family reported has no medical history of alcohol abuse. Imaging: CT head was negative no acute intracranial bleed is seen I was consulted because of right kidney mass. Patient also with anemia and thrombocytopenia. There is no obvious bleeding. Patient was admitted with change mental status with the patient have good bowel movement and she improved. REVIEW OF SYSTEMS Unable to obtain ROS given to hepatic encephalopathy. PAST MEDICAL HISTORY: [ ] Refer to HPI PAST SURGICAL HISTORY: [ ] Unable to obtain due to encephalopathy PAST SOCIAL HISTORY: [ ] As per ER note no history of alcohol or smoking tobacco products FAMILY HISTORY: [ ] No family at bedside Coded Allergies: Penicillins (Unverified Allergy, Unknown, 12/27/24) PHYSICAL EXAM GENERAL APPEARANCE: Lethargic unable to keep eyes open. and oriented, in no acute cardiopulmonary distress. NEUROLOGICAL: Cranial nerves II-XII grossly intact. Motor is 5/5 in bilateral upper and lower extremities proximal to distal. No sensory deficits. HEENT: Face is symmetric. Pupils are equal and reactive. Extraocular movements are intact. NECK: Supple. No JVD. No thyromegaly. No submental, submandibular, pre-/postauricular, occipital or supraclavicular lymphadenopathy. CHEST: Normal chest expansion. No Telemetry. LUNGS: Absence of any rales, rhonchi or any wheezing. CARDIOVASCULAR: Regular. S1 and S2 normal. No appreciable rubs, murmurs or gallops. ABDOMEN: Soft, nontender, and distended with ascites. There is no rebound, voluntary guarding, or rigidity. : Deferred. No Vallejo. EXTREMITIES: Non-edematous and not cyanotic. No clubbing. Good capillary refill. Edematous to lower extremity SKIN: No skin breakdown. Assessment 1. Right renal mass 6.4 x 5.2 cm consistent with clear-cell carcinoma 1 2. Cirrhosis of the liver 3. Anemia 4. Thrombocytopenia 5. Chronic renal insufficiency 6. Change mental status which improved 7. Ascites 8. Diabetes mellitus 9. Hyperlipidemia Plan 1. I have long discussion with the patient regarding the plan of care. I answer all question and concern and I spent more than 35 minutes. I explained to the patient the result of CT scan which showing right kidney mass suspicious for malignancy. Patient also with cirrhosis of the liver 2. This patient prognosis is very poor. The patient have hepatorenal syndrome 3. This patient need to be seen by urology 4. Peripheral blood smear showed red blood cells to be normocytic normochromic. There was no fragment cell or schistocyte. There is no teardrop cell. There is no rouleaux phenomena. There is no pelger-Huet cell. White blood cell with no blasts. Platelet was normal in morphology and count. 2. There was hypersegmented neutrophils. This patient to be started on folic acid 1 mg p.o. daily and vitamin B12 1000 mcg p.o. daily. 6. Patient patient anemia is multifactorial including anemia of chronic disease. With the patient would benefit from Procrit 7. Continue care as per primary LAB RESULTS 12/27/24 21:25: Whole Blood Glucose 210H 12/27/24 16:45: Iron Level 67, Total Iron Binding Capacity 172L, Percent Iron Saturation 38.9, Ammonia 55#H 12/27/24 11:03: Lactic Acid Level 1.6 12/27/24 08:48: Urine Color LIGHT-YELLOW, Urine Appearance CLEAR, Urine pH 6.5, Urine Specific [place] 1.007, Urine Protein NEGATIVE, Urine Glucose (UA) 150H, Urine Ketones NEGATIVE, Urine Occult Blood LARGEH, Urine Nitrate NEGATIVE, Urine Bilirubin NEGATIVE, Urine Urobilinogen 0.2, Urine Leukocyte Esterase NEGATIVE, Urine RBC 6-10H, Urine WBC 0-1, Urine Squamous Epithelial Cells RARE, Urine Bacteria RARE, Urine Opiates Screen NEGATIVE, Urine Barbiturates Screen NEGATIVE, Urine Phencyclidine Screen NEGATIVE, Urine Amphetamines Screen NEGATIVE, Urine Benzodiazepines Screen NEGATIVE, Urine Cocaine Screen NEGATIVE, Urine Marijuana (THC) Screen NEGATIVE 12/27/24 07:45: White Blood Count 5.1, Red Blood Count 3.34L, Hemoglobin 9.5L, Hematocrit 29.8L, Mean Corpuscular Volume 89.2, Mean Corpuscular Hemoglobin 28.4, Mean Corpuscular Hemoglobin Concent 31.9L, Red Cell Distribution Width 17.2H, Platelet Count 83L, Mean Platelet Volume 11.1H, Immature Granulocyte % (Auto) 0.4, Neutrophils (%) (Auto) 72.7, Lymphocytes (%) (Auto) 14.6L, Monocytes (%) (Auto) 9.3, Eosinophils (%) (Auto) 2.6, Basophils (%) (Auto) 0.4, Neutrophils # (Auto) 3.7, Lymphocytes # (Auto) 0.7L, Monocytes # (Auto) 0.5, Eosinophils # (Auto) 0.13, Basophils # (Auto) 0.02, Absolute Immature Granulocyte (auto 0.02, Nucleated Red Blood Cells 0.0, Prothrombin Time 11.6, Prothromb Time International Ratio 1.11, Activated Partial Thromboplast Time 27.6, Sodium Level 138, Potassium Level 5.3H, Chloride Level 106, Carbon Dioxide Level 25, Blood Urea Nitrogen 20H, Creatinine 1.3H, Glomerular Filtration Rate Calc 49, Random Glucose 261H, Total Calcium 8.9, Total Bilirubin 1.4H, Direct Bilirubin 0.3, Aspartate Amino Transf (AST/SGOT) 51H, Alanine Aminotransferase (ALT/SGPT) 22, Alkaline Phosphatase 390H, Total Creatine Kinase 94, Troponin I High Sensitivity 6.4, Total Protein 7.6, Albumin 2.2L, Lipase 33, Serum Alcohol < 3 Laboratory Tests Test 12/27/24 07:45 12/27/24 08:08 12/27/24 08:48 12/27/24 11:03 White Blood Count 5.1 K/uL (4.8-10.8) Red Blood Count 3.34 MIL/uL (4.00-5.50) L Hemoglobin 9.5 g/dL (12.0-16.0) L Hematocrit 29.8 % (36-48) L Mean Corpuscular Volume 89.2 fL (79-99) Mean Corpuscular Hemoglobin 28.4 pg (27.0-33.0) Mean Corpuscular Hemoglobin Concent 31.9 g/dL (32.0-36.0) L Red Cell Distribution Width 17.2 % (11.0-15.5) H Platelet Count 83 K/uL (130-400) L Mean Platelet Volume 11.1 fL (7.5-10.5) H Immature Granulocyte % (Auto) 0.4 % (0-1) Neutrophils (%) (Auto) 72.7 % (40.0-77.0) Lymphocytes (%) (Auto) 14.6 % (21.0-51.0) L Monocytes (%) (Auto) 9.3 % (3.0-13.0) Eosinophils (%) (Auto) 2.6 % (0.0-8.0) Basophils (%) (Auto) 0.4 % (0.0-5.0) Neutrophils # (Auto) 3.7 K/uL (1.8-7.7) Lymphocytes # (Auto) 0.7 K/uL (1.0-4.8) L Monocytes # (Auto) 0.5 K/uL (0.1-1.0) Eosinophils # (Auto) 0.13 K/uL (0.00-0.70) Basophils # (Auto) 0.02 K/uL (0.00-0.20) Absolute Immature Granulocyte (auto 0.02 K/uL (0-1) Nucleated Red Blood Cells 0.0 % (0.0-0.19) Prothrombin Time 11.6 SEC (9.6-11.6) Prothromb Time International Ratio 1.11 (0.85-1.15) Activated Partial Thromboplast Time 27.6 SEC (26.3-35.5) Sodium Level 138 mmol/L (136-145) Potassium Level 5.3 mmol/L (3.5-5.1) H Chloride Level 106 mmol/L (101-111) Carbon Dioxide Level 25 mmol/L (21-32) Blood Urea Nitrogen 20 mg/dL (7-18) H Creatinine 1.3 mg/dL (0.5-1.0) H Glomerular Filtration Rate Calc 49 mL/min (>90) Random Glucose 261 mg/dL (70-105) H Lactic Acid Level 2.4 mmol/L (0.8-2.5) 1.6 mmol/L (0.8-2.5) Total Calcium 8.9 mg/dL (8.5-10.1) Total Bilirubin 1.4 mg/dL (0.2-1.0) H Direct Bilirubin 0.3 mg/dL (0.0-0.3) Aspartate Amino Transf (AST/SGOT) 51 U/L (10-37) H Alanine Aminotransferase (ALT/SGPT) 22 U/L (12-78) Alkaline Phosphatase 390 U/L (50-136) H Ammonia 162 umol/L (11-32) *H Total Creatine Kinase 94 U/L (21-232) Troponin I High Sensitivity 6.4 ng/L (4-50) Total Protein 7.6 g/dL (6.0-8.3) Albumin 2.2 g/dL (3.5-5.0) L Lipase 33 U/L (16-77) Serum Alcohol < 3 mg/dL (0-10) Whole Blood Glucose 241 MG/DL (70-110) H Urine Color LIGHT-YELLOW (YELLOW) Urine Appearance CLEAR (CLEAR) Urine pH 6.5 (5.0-8.0) Urine Specific [place] 1.007 (1.001-1.031) Urine Protein NEGATIVE mg/dL (NEGATIVE) Urine Glucose (UA) 150 mg/dL (NEGATIVE) H Urine Ketones NEGATIVE mg/dL (NEGATIVE) Urine Occult Blood LARGE (NEGATIVE) H Urine Nitrate NEGATIVE (NEGATIVE) Urine Bilirubin NEGATIVE mg/dL (NEGATIVE) Urine Urobilinogen 0.2 mg/dL (0.2-1.0) Urine Leukocyte Esterase NEGATIVE Eva/uL Urine RBC 6-10 /HPF (0-1) H Urine WBC 0-1 /HPF (0-1) Urine Squamous Epithelial Cells RARE /HPF (0-2) Urine Bacteria RARE /HPF (None Seen) Urine Opiates Screen NEGATIVE (NEGATIVE) Urine Barbiturates Screen NEGATIVE (NEGATIVE) Urine Phencyclidine Screen NEGATIVE (NEGATIVE) Urine Amphetamines Screen NEGATIVE (NEGATIVE) Urine Benzodiazepines Screen NEGATIVE (NEGATIVE) Urine Cocaine Screen NEGATIVE (NEGATIVE) Urine Marijuana (THC) Screen NEGATIVE (NEGATIVE) Test 12/27/24 12:16 12/27/24 16:45 12/27/24 17:25 12/27/24 21:25 Whole Blood Glucose 227 MG/DL (70-110) H 221 MG/DL (70-110) H 210 MG/DL (70-110) H Iron Level 67 mcg/dL (50-170) Total Iron Binding Capacity 172 mcg/dL (250-450) L Percent Iron Saturation 38.9 % (22-44) Ammonia 55 umol/L (11-32) #H DANIELLE GORDON MD Dec 27, 2024 22:36
[2024-12-28 02:50] VITALS: BP 140/76; PULSE 96; RESP 19; TEMP 98.7
[2024-12-28] MEDS ORDERED: METF-446 PO (03:12)
[2024-12-28 03:23] VITALS: O2SAT 100
[2024-12-28] MEDS ORDERED: PROP10TA10 PO (06:41)
[2024-12-28] MEDS ORDERED: PANT40TA54 PO (06:41)
[2024-12-28 06:59] LABS: BASOPHILS # (AUTO) 0.02 K/uL (0.00-0.20); BASOPHILS % (AUTO) 0.3 % (0.0-5.0); EOSINOPHILS # (AUTO) 0.14 K/uL (0.00-0.70); EOSINOPHILS % (AUTO) 1.9 % (0.0-8.0); HEMATOCRIT 28.3 % (36-48); IMMATURE GRANULOCYTE ABSOLUTE 0.04 K/uL (0-1); LYMPHOCYTES # (AUTO) 0.9 K/uL (1.0-4.8); LYMPHOCYTES % (AUTO) 12.3 % (21.0-51.0); MEAN CORPUSCULAR HEMOGLOBIN 28.4 pg (27.0-33.0); MEAN CORPUSCULAR HGB CONC 32.2 g/dL (32.0-36.0); MEAN CORPUSCULAR VOLUME 88.4 fL (79-99); MONOCYTES # (AUTO) 0.7 K/uL (0.1-1.0); MONOCYTES % (AUTO) 8.8 % (3.0-13.0); NEUTROPHILS # (AUTO) 5.7 K/uL (1.8-7.7); NEUTROPHILS % (AUTO) 76.2 % (40.0-77.0); PLATELET COUNT (AUTO) 111 K/uL (130-400); RED CELL DISTRIBUTION WIDTH 17.2 % (11.0-15.5); WHITE BLOOD COUNT (AUTO) 7.5 K/uL (4.8-10.8)
[2024-12-28 07:17] LABS: ALBUMIN 2.2 g/dL (3.5-5.0); BILIRUBIN,TOTAL 1.5 mg/dL (0.2-1.0); CREATININE 1.2 mg/dL (0.5-1.0); MAGNESIUM 1.5 mg/dL (1.80-2.40); POTASSIUM 3.6 mmol/L (3.5-5.1); TOTAL PROTEIN, SERUM 7.1 g/dL (6.0-8.3)
--- NOTE | 2024-12-28 07:39 | PN ---
GASTROENTEROLOGY PROGRESS NOTE Date of Visit: Dec 28, 2024 Time of Visit: 07:39 Events / Notes: [ ] Review of Systems: CONSTITUTIONAL: No malaise or change in sensation of wellbeing. ENMT: No rhinorrhea, otorrhea, sinus pain, ear ache. CARDIOVASCULAR: No angina, palpitations, orthopnea or paroxysmal dyspnea. RESPIRATORY: No SOB. GASTROINTESTINAL: No abdominal pain, nausea, vomiting, diarrhea, hematemesis, melena or change in the patient's habitual bowel movements consistency/number. GENITOURINARY: No dysuria, hematuria or change in bladder continence. MUSCULOSKELETAL: No new muscle pain or decrease in muscular strength. No new joint swelling, redness or tenderness. SKIN: No new rash. Physical Exam: GEN: Awake, alert, oriented in person, time and place, and in no acute distress. HEENT: No sinus tenderness. Tympanic membranes were not examined. No rhinorrhea. Oral pharyngeal mucosa is pink, moist and within normal limits. Neck is supple with no cervical lymphadenopathy, thyromegaly or JVD. CHEST: Inspection, palpation and percussion of the chest were unremarkable. Lung auscultation revealed normal breath sounds bilaterally. CARDIAC: PMI is within normal limits. Heart sounds are regular. Normal S1, S2. No gallop or murmur. ABD: Soft, non-tender and not distended. No peritoneal signs on palpation. No organomegaly. Normal bowel sounds. EXT: No cyanosis or clubbing. No edema. SKIN: Intact. No rashes. JOINTS: No evidence of synovitis or acute arthritis. NEURO: Alert and oriented to name, place and person. Cranial nerve examination is unremarkable. No focal motor deficits. Normal speech. Gait is normal. Strength is normal. Vital Signs (last 8hr) Date Time Temp Pulse Resp B/P (MAP) Pulse Ox O2 Delivery O2 Flow Rate FiO2 12/28/24 03:23 100 Room Air* 0 21 12/28/24 02:50 98.8 96 19 140/76 100 Room Air 12/28/24 01:52 98.6 95 18 172/96 98 Room Air* 0 21 Laboratory: [ ] Laboratory: Test 12/28/24 06:49 12/28/24 05:29 12/27/24 16:45 12/27/24 11:03 Range/Units White Blood Count 7.5 # 4.8-10.8 K/uL Red Blood Count 3.20 L 4.00-5.50 MIL/uL Hemoglobin 9.1 L 12.0-16.0 g/dL Hematocrit 28.3 L 36-48 % Mean Corpuscular Volume 88.4 79-99 fL Mean Corpuscular Hemoglobin 28.4 27.0-33.0 pg Mean Corpuscular Hemoglobin Concent 32.2 32.0-36.0 g/dL Red Cell Distribution Width 17.2 H 11.0-15.5 % Platelet Count 111 #L 130-400 K/uL Mean Platelet Volume 10.1 7.5-10.5 fL Immature Granulocyte % (Auto) 0.5 0-1 % Neutrophils (%) (Auto) 76.2 40.0-77.0 % Lymphocytes (%) (Auto) 12.3 L 21.0-51.0 % Monocytes (%) (Auto) 8.8 3.0-13.0 % Eosinophils (%) (Auto) 1.9 0.0-8.0 % Basophils (%) (Auto) 0.3 0.0-5.0 % Neutrophils # (Auto) 5.7 1.8-7.7 K/uL Lymphocytes # (Auto) 0.9 L 1.0-4.8 K/uL Monocytes # (Auto) 0.7 0.1-1.0 K/uL Eosinophils # (Auto) 0.14 0.00-0.70 K/uL Basophils # (Auto) 0.02 0.00-0.20 K/uL Absolute Immature Granulocyte (auto 0.04 0-1 K/uL Nucleated Red Blood Cells 0.0 0.0-0.19 % Sodium Level 142 136-145 mmol/L Potassium Level 3.6 3.5-5.1 mmol/L Chloride Level 109 101-111 mmol/L Carbon Dioxide Level 22 21-32 mmol/L Blood Urea Nitrogen 21 H 7-18 mg/dL Creatinine 1.2 H 0.5-1.0 mg/dL Glomerular Filtration Rate Calc 54 >90 mL/min Random Glucose 205 H 70-105 mg/dL Total Calcium 9.1 8.5-10.1 mg/dL Magnesium Level 1.50 L 1.80-2.40 mg/dL Total Bilirubin 1.5 H 0.2-1.0 mg/dL Aspartate Amino Transf (AST/SGOT) 38 H 10-37 U/L Alanine Aminotransferase (ALT/SGPT) 25 12-78 U/L Alkaline Phosphatase 294 H 50-136 U/L Total Protein 7.1 6.0-8.3 g/dL Albumin 2.2 L 3.5-5.0 g/dL Whole Blood Glucose 185 H 70-110 MG/DL Iron Level 67 50-170 mcg/dL Total Iron Binding Capacity 172 L 250-450 mcg/dL Percent Iron Saturation 38.9 22-44 % Lactic Acid Level 1.6 0.8-2.5 mmol/L Test 12/27/24 08:48 12/27/24 07:45 Range/Units Urine Color LIGHT-YELLOW YELLOW Urine Appearance CLEAR CLEAR Urine pH 6.5 5.0-8.0 Urine Specific [place] 1.007 1.001-1.031 Urine Protein NEGATIVE NEGATIVE mg/dL Urine Glucose (UA) 150 H NEGATIVE mg/dL Urine Ketones NEGATIVE NEGATIVE mg/dL Urine Occult Blood LARGE H NEGATIVE Urine Nitrate NEGATIVE NEGATIVE Urine Bilirubin NEGATIVE NEGATIVE mg/dL Urine Urobilinogen 0.2 0.2-1.0 mg/dL Urine Leukocyte Esterase NEGATIVE NEGATIVE Eva/uL Urine RBC 6-10 H 0-1 /HPF Urine WBC 0-1 0-1 /HPF Urine Squamous Epithelial Cells RARE 0-2 /HPF Urine Bacteria RARE None Seen /HPF Urine Opiates Screen NEGATIVE NEGATIVE Urine Barbiturates Screen NEGATIVE NEGATIVE Urine Phencyclidine Screen NEGATIVE NEGATIVE Urine Amphetamines Screen NEGATIVE NEGATIVE Urine Benzodiazepines Screen NEGATIVE NEGATIVE Urine Cocaine Screen NEGATIVE NEGATIVE Urine Marijuana (THC) Screen NEGATIVE NEGATIVE Prothrombin Time 11.6 9.6-11.6 SEC Prothromb Time International Ratio 1.11 0.85-1.15 Activated Partial Thromboplast Time 27.6 26.3-35.5 SEC Direct Bilirubin 0.3 0.0-0.3 mg/dL Total Creatine Kinase 94 21-232 U/L Troponin I High Sensitivity 6.4 4-50 ng/L Lipase 33 16-77 U/L Serum Alcohol < 3 0-10 mg/dL Current Medications Medications (Trade) Dose Ordered Sig/Dora Route PRN Reason Start Time Stop Time Status Last Admin Dose Admin Insulin Human Regular (humuLIN R 100 UNIT/ML 3ML) INSULIN SLIDING SCAL... ACHS SQ 12/27/24 11:30 01/26/25 11:29 12/27/24 21:29 6 UNIT Lactulose (Constulose 20gm/ 30ml Udcup) 20 gm QID PO 12/27/24 17:00 01/26/25 16:59 12/27/24 21:24 20 GM Magnesium Sulfate 50 ml @ 0 mls/hr PROTOCOL PRN IV low mag level 12/27/24 11:00 01/26/25 10:59 Metoprolol Tartrate (loprESSOR) 12.5 mg BID PO 12/27/24 21:00 01/26/25 20:59 12/27/24 21:21 12.5 MG Potassium Chloride 100 ml @ 50 mls/hr AD PRN IV POTASSIUM PROTOCOL 12/27/24 11:00 01/26/25 10:59 Rifaximin (Xifaxan) 550 mg BID PO 12/28/24 09:00 01/27/25 08:59 Diagnostics / Radiology: [COPY/PASTE HERE IF NO REPORTS PLEASE DELETE SECTION] Assessment: [ ] Plan: Paracentesis with fluid analysis Will obtain liver serologies CANDY LEBLANC [employer] SUPERVISOR Dec 28, 2024 07:39
[2024-12-28 07:55] LABS: INR 1.17 (0.85-1.15); PROTHROMBIN TIME 12.2 SEC (9.6-11.6)
[2024-12-28 07:57] LABS: PARTIAL THROMBOPLASTIN TIME 29.6 SEC (26.3-35.5)
[2024-12-28 08:00] VITALS: BP 112/68; PULSE 103; RESP 18; TEMP 98.3
[2024-12-28] MEDS: RIFAXIMIN 550 MG TABLET PO SCH (08:43)
[2024-12-28 08:45] VITALS: O2SAT 100
[2024-12-28] MEDS: FOLic ACID 1 MG TABLET PO ONE (09:41)
[2024-12-28] MEDS: CYANOCOBALAMIN (VITAMIN B-12) 1,000 MCG TABLET PO ONE (09:42)
--- NOTE | 2024-12-28 10:07 | NUR ---
[employer] josue [employer], requested community resources and information on [facility] provided as requested
[2024-12-28] MEDS ORDERED: Lactulose 20 Gm/30 Ml Udcup PO (10:44)
[2024-12-28] MEDS ORDERED: FOLI1 PO (10:44)
[2024-12-28] MEDS ORDERED: CYAN-52 PO (10:44)
--- NOTE | 2024-12-28 10:55 | DS ---
Discharge Summary Hospital Course Summary: This is a 54-year-old female with a significant medical history of hypertension, hyperlipidemia and diabetes was brought in by EMS from home given to altered mentation. Unable to obtain history data given to patient is lethargic we will obtain history from ER primary nurse and ER note. Apparently earlier this morning family found patient to be lethargic unable to open eyes and respond to pain decided to call EMS to bring patient to ER for further evaluation and treatment. Patient is present with distended abdomen, bilateral lower extremity edematous. ER workup was done revealed CT abdomen pelvis right lower pole renal mass measuring 6.4 x 5.2 cm may be related to renal cell carcinoma. Ammonia level 162 patient was given a lactulose enema. Family reported has no medical history of alcohol abuse. Labs reviewed potassium 5.3 BUN 20 creatinine 1.3 Glucose 241total bilirubin 1.4 AST51 alkaline phosphate 390 ammonia level 162 albumin 2.2 CBC hemoglobin 9.5 hematocrit 29.8 Platelets 83 Urinalysis negative Imaging: CT head was negative no acute intracranial bleed is seen 12/28/2024. Patient is clinically stable ammonia level 46. Patient was seen by oncologists he recommend urology outpatient setting we will need a referral from PCP patient is non funded patient was provided community resources for assistance. GI would like to see her in one-week paracentesis was done on this admission she will follow-up with GI for fluid analysis and liver serologies spoke to GI nurse practitioner Danisha suh to discharge. Patient we will be on lactulose every8 hours. All questions were addressed. Patient will continue with home medication metformin, Protonix, Propranolol HCL Procedure(s): REASON: ascites ORDERING PHYSICIAN: CHLOE SANABRIA NP PROCEDURE: ABD WALL - US ABD LIMITED/ABD WALL US ABD LIMITED/ABD WALL REASON: ascites. COMPARISON: None TECHNIQUE: Limited abdominal ultrasound study was performed. FINDINGS: Small ascites fluid is seen. IMPRESSION: Small ascites fluid. DICTATED BY: EDGAR JAVIER MD DATE: 12/27/24 1414 REASON: edematous lower ext ORDERING PHYSICIAN: CHLOE SANABRIA NP PROCEDURE: VENOUS ELI - US VENOUS DOPPLER BILATERAL US VENOUS DOPPLER BILATERAL HISTORY: Swelling COMPARISON: None TECHNIQUE: Bilateral lower extremity venous Doppler ultrasound study was performed. FINDINGS: The common femoral, femoral, popliteal, and posterior tibial veins are visualized. Normal flow with augmentation and compressibilities are demonstrated on the right. Normal flow with compressibility is seen on the left. The greater saphenous veins are also seen and grossly patent. IMPRESSION: 1. No evidence of deep venous thrombosis is seen. REASON: altered ORDERING PHYSICIAN: HERBERTH JOHN DO PROCEDURE: HEAD WO - CT HEAD/BRAIN W/O CONTRAST CT HEAD/BRAIN W/O CONTRAST HISTORY: Altered mental status COMPARISON: None TECHNIQUE: Multiple sequential axial images of the head were obtained from the base of the skull through vertex. Patient was not given contrast through intravenous route. FINDINGS: The ventricles and extraventricular CSF spaces are nondilated for patient's age. There is no midline shift, mass effect or herniation. No acute intracranial bleed is seen. Visualized portion of the paranasal sinuses are grossly within normal limits. There is left maxillary sinus polyp versus mucus retention cyst. IMPRESSION: 1. No acute intracranial bleed is seen. REASON: altered ORDERING PHYSICIAN: HERBERTH JOHN DO PROCEDURE: ABD PEL WO - CT ABDOMEN/PELVIS W/O CONTRAST CT ABDOMEN/PELVIS W/O CONTRAST HISTORY: Altered mental status COMPARISON: None TECHNIQUE: Multiple sequential axial images of the abdomen and pelvis were obtained from the dome of the diaphragm through symphysis pubis. Patient was not given contrast through intravenous route. Oral contrast was not given. FINDINGS: No pleural effusion is seen bilaterally. There are interstitial fibrosis with tiny 4 mm right lower pulmonary nodule. Bibasilar linear atelectasis changes are seen. Degenerative changes of the thoracolumbar spine are present. The heart is not enlarged. Cirrhotic changes of the liver are noted. Liver measures 13 cm. Spleen is enlarged measuring 16 cm. Postcholecystectomy changes are seen. There are abdominal varices and esophageal varices. There is right lower pole renal mass measuring 6.4 x 5.2 cm. There is 15 x 4 mm renal stone in the right renal pelvis. Adrenal glands and pancreas are unremarkable. Moderate hydronephrosis is seen. No hydronephrosis is seen on the left. No evidence of renal stone is seen. Fecal material is seen in the colon. There are normal size retroperitoneal and mesenteric lymph nodes. There is ascites. Atherosclerotic changes are present. Pelvic sidewalls are symmetric bilaterally. Bladder is poorly distended with [place] catheter. IMPRESSION: 1. Cirrhotic liver with enlarged spleen and abdominal varices. There is ascites. There is right lower pole renal mass measuring 6.4 x 5.2 cm may be related to renal cell carcinoma. Right renal pelvic stone is seen. There is right hydronephrosis. Tiny 4 mm right lower pulmonary nodule is seen. Assessment/Plan: discharged Acute hepatic encephalopathy POA resolved New onset liver cirrhosis POA we will follow-up GI one-week Anemia secondary to liver cirrhosis stable Thrombocytopenia POA stable discharged on folic acid and vitamin B12 Ascites with paracentitis: liver serologies and fluid analysis: will follow up with GI one wk for results. Bilateral lower extremity edematous improved right lower pole renal mass measuring 6.4 x 5.2 cm may evidenced by CT abdomen pelvis POA be related to renal cell carcinoma will need a referral urologist per PCP: Hyperkalemia corrected LOREN possible ATN improving. mild LFT's elevation elevated TB. Diabetes type 2 with hyperglycemia POA Hyperammonemia POA resolved Severe protein calorie malnutrition POA Chronic problems Diabetes, hyperlipidemia, hypertension PLAN: [ ] ADMISSION DATE: 12/27/2024 DISCHARGE DATE: 12/28/2024 DISPOSITION: home CONDITION: stable COUNSELOR AT LAW(S): GI, oncologists FOLLOW UP APPOINTMENT(S): Community resources was provided patient will get assistance we will need to be followed by a PCP. PROCEDURES: Paracentesis liver serologies and fluid analysis: Sent IMAGING (S) report attached to summary : CT abdomen and pelvis, ultrasound complete, CT head, venous Doppler MICROBIOLOGY: report attached to summary; none ACTIVITY: Ad kayce HOME MEDICATIONS we will continue with home medication. CHANGES ON HOME MEDICATIONS none NEW MEDICATIONS lactulose 30 g every 8 hours TEACHING: Emergency instructions: The patient was instructed to present to the nearest Emergency Department or call 911 should their symptoms return or worsen. Home Medications: Reported Medications Propranolol HCl (Propranolol HCl) 10 Mg Tablet, 1 TAB PO BID for 30 Days, #60 TAB 0 Refills 12/28/24 Pantoprazole Sodium (Pantoprazole Sodium) 40 Mg Tablet.dr, 1 TAB PO DAILY for 30 Days, #30 TAB 0 Refills 12/28/24 Metformin HCl (Metformin HCl) 1,000 Mg Tablet, 1 TAB PO BID for 30 Days, #60 TAB 0 Refills 12/28/24 New Medications: Cyanocobalamin (Vitamin B-12) (Vitamin B-12) 1,000 Mcg Tablet 1000 MCG PO DAILY for 30 Days, #30 TAB Folic Acid (Folvite) 1 Mg Tab 1 MG PO DAILY for 30 Days, #30 TAB [Lactulose 20 Gm/30 Ml Udcup] () 20 GM/30 ML SOLUTION 20 GM PO q8 hr for 30 Days, #1 BOTTLE 1 Refill Continued Medications: Metformin HCl (Metformin HCl) 1,000 Mg Tablet 1 TAB PO BID for 30 Days, #60 TAB 0 Refills Pantoprazole Sodium (Pantoprazole Sodium) 40 Mg Tablet.dr 1 TAB PO DAILY for 30 Days, #30 TAB 0 Refills Propranolol HCl (Propranolol HCl) 10 Mg Tablet 1 TAB PO BID for 30 Days, #60 TAB 0 Refills Time spent arranging discharge: 31-60 minutes ATTESTATION BY PHYSICIAN I have seen and examined the patient. I reviewed the documentation, medical decision making, and treatment plan as noted by the mid-level provider above. I agree with the findings and plan of care. LEANDER ROQUE MD, ELIZABETH NP Dec 28, 2024 10:55
[2024-12-28] MEDS: MAGNESIUM 2GM PREMIX 50ML 50 ML IV SCH (11:07)
[2024-12-28 12:00] VITALS: BP 129/68; PULSE 95; RESP 18; TEMP 97.9
--- NOTE | 2024-12-28 12:07 | NUR ---
RE: PARACENTESIS BY IR DR Shanda MERRILL NOTIFIED AND REVIEWED PREVIOUS IMAGES TAKEN YESTERDAY. SMALL AMOUNT OF FLUID SEEN ON PREVIOUS IMAGES. PROCEDURE CANCELLED FOR TODAY. DR Shanda MERRILL STATED TO RESCHEDULE FOR TOMORROW FOR POSSIBLE PARACENTESIS OR SCHEDULE AN OUTPATIENT IF DISCHARGED. PROCEDURE OUTCOME REPORTED TO Mario KEITH LVN.
--- NOTE | 2024-12-28 14:22 | PN ---
NEPHROLOGY PROGRESS NOTE Date/Time Patient Seen: Dec 28, 2024 SUBJECTIVE: This is a 54-year-old female with a significant medical history of hypertension, hyperlipidemia and diabetes She was brought by EMS from home given to altered mentation. ER workup was done revealed CT abdomen pelvis right lower pole renal mass measuring 6.4 x 5.2 cm may be related to renal cell carcinoma. She was seen by Oncology. Urinalysis negative She was noted to have elevated BUN/creatinine We has been consulted for renal failure. Renal function and electrolytes are stable. She was seen in the medical floor, in no acute distress REVIEW OF SYSTEMS: GENERAL: Generalized weakness NEUROLOGIC: Negative for any blurry vision, blind spots, double vision, facial asymmetry, dysphagia, dysarthria, hemiparesis, hemisensory deficits, vertigo, ataxia. HEENT: Negative for any head trauma, neck trauma, neck stiffness, photophobia, phonophobia, sinusitis, rhinitis. CARDIAC: Negative for any chest pain, dyspnea on exertion, paroxysmal nocturnal dyspnea, peripheral edema. PULMONARY: Negative for any shortness of breath, wheezing, COPD, or TB exposure. GASTROINTESTINAL: Negative for any abdominal pain, nausea, vomiting, bright red blood per rectum, melena. GENITOURINARY: Negative for any dysuria, hematuria, incontinence. INTEGUMENTARY: Negative for any rashes, cuts, insect bites. RHEUMATOLOGIC: Negative for any joint pains, photosensitive rashes, history of vasculitis or kidney problems. HEMATOLOGIC: Negative for any abnormal bruising, frequent infections or bleeding. PHYSICAL EXAM: GENERAL: Alert and oriented x 3. No acute distress. Well-nourished. EYES: EOMI. Anicteric. HENT: Moist mucous membranes. No scleral icterus. No cervical lymphadenopathy. LUNGS: Clear to auscultation bilaterally. No accessory muscle use. CARDIOVASCULAR: Regular rate and rhythm. No murmur. No JVD. ABDOMEN: Soft, non-tender and non-distended. No palpable masses. EXTREMITIES: No edema. Non-tender. SKIN: No rashes or lesions. Warm. NEUROLOGIC: No focal neurological deficits. CN II-XII grossly intact, but not individually tested. PSYCHIATRIC: Cooperative. Appropriate mood and affect. LABORATORY: [ ] Hematology Labs: Test 12/28/24 06:49 Range/Units White Blood Count 7.5 # 4.8-10.8 K/uL Red Blood Count 3.20 L 4.00-5.50 MIL/uL Hemoglobin 9.1 L 12.0-16.0 g/dL Hematocrit 28.3 L 36-48 % Mean Corpuscular Volume 88.4 79-99 fL Mean Corpuscular Hemoglobin 28.4 27.0-33.0 pg Mean Corpuscular Hemoglobin Concent 32.2 32.0-36.0 g/dL Red Cell Distribution Width 17.2 H 11.0-15.5 % Platelet Count 111 #L 130-400 K/uL Mean Platelet Volume 10.1 7.5-10.5 fL Immature Granulocyte % (Auto) 0.5 0-1 % Neutrophils (%) (Auto) 76.2 40.0-77.0 % Lymphocytes (%) (Auto) 12.3 L 21.0-51.0 % Monocytes (%) (Auto) 8.8 3.0-13.0 % Eosinophils (%) (Auto) 1.9 0.0-8.0 % Basophils (%) (Auto) 0.3 0.0-5.0 % Neutrophils # (Auto) 5.7 1.8-7.7 K/uL Lymphocytes # (Auto) 0.9 L 1.0-4.8 K/uL Monocytes # (Auto) 0.7 0.1-1.0 K/uL Eosinophils # (Auto) 0.14 0.00-0.70 K/uL Basophils # (Auto) 0.02 0.00-0.20 K/uL Absolute Immature Granulocyte (auto 0.04 0-1 K/uL Nucleated Red Blood Cells 0.0 0.0-0.19 % Chemistry Labs: Test 12/28/24 11:17 12/28/24 06:49 12/27/24 16:45 12/27/24 11:03 Range/Units Whole Blood Glucose 214 H 70-110 MG/DL Sodium Level 142 136-145 mmol/L Potassium Level 3.6 3.5-5.1 mmol/L Chloride Level 109 101-111 mmol/L Carbon Dioxide Level 22 21-32 mmol/L Blood Urea Nitrogen 21 H 7-18 mg/dL Creatinine 1.2 H 0.5-1.0 mg/dL Glomerular Filtration Rate Calc 54 >90 mL/min Random Glucose 205 H 70-105 mg/dL Total Calcium 9.1 8.5-10.1 mg/dL Magnesium Level 1.50 L 1.80-2.40 mg/dL Total Bilirubin 1.5 H 0.2-1.0 mg/dL Aspartate Amino Transf (AST/SGOT) 38 H 10-37 U/L Alanine Aminotransferase (ALT/SGPT) 25 12-78 U/L Alkaline Phosphatase 294 H 50-136 U/L Ammonia 46 H 11-32 umol/L Total Protein 7.1 6.0-8.3 g/dL Albumin 2.2 L 3.5-5.0 g/dL Iron Level 67 50-170 mcg/dL Total Iron Binding Capacity 172 L 250-450 mcg/dL Percent Iron Saturation 38.9 22-44 % Lactic Acid Level 1.6 0.8-2.5 mmol/L Test 12/27/24 07:45 Range/Units Direct Bilirubin 0.3 0.0-0.3 mg/dL Total Creatine Kinase 94 21-232 U/L Troponin I High Sensitivity 6.4 4-50 ng/L Lipase 33 16-77 U/L Coagulation Labs: Test 12/28/24 06:49 Range/Units Prothrombin Time 12.2 H 9.6-11.6 SEC Prothromb Time International Ratio 1.17 H 0.85-1.15 Activated Partial Thromboplast Time 29.6 26.3-35.5 SEC DIAGNOSTICS / RADIOLOGY: REASON: ascites ORDERING PHYSICIAN: CHLOE SANABRIA NP PROCEDURE: ABD WALL - US ABD LIMITED/ABD WALL US ABD LIMITED/ABD WALL REASON: ascites. COMPARISON: None TECHNIQUE: Limited abdominal ultrasound study was performed. FINDINGS: Small ascites fluid is seen. IMPRESSION: Small ascites fluid. DICTATED BY: EDGAR JAVIER MD DATE: 12/27/24 1414 ASSESSMENT: Acute hepatic encephalopathy POA New onset liver cirrhosis POA Anemia secondary to liver cirrhosis Thrombocytopenia POA Ascites Bilateral lower extremity edematous right lower pole renal mass measuring 6.4 x 5.2 cm may evidenced by CT abdomen pelvis POA be related to renal cell carcinoma Hyperkalemia LOREN possible ATN mild LFT's elevation elevated TB. Diabetes type 2 with hyperglycemia POA Hyperammonemia POA Severe protein calorie malnutrition POA Chronic problems Diabetes, hyperlipidemia, hypertension PLAN: Labs, diagnostic, radiologic exams reviewed and interpreted by myself and supervising physician. We have reviewed external records in detail Frontal Nephrology standpoint, patient may be discharged Follow up in the renal clinic in 1-2 weeks Follow up with the Urology in the outpatient setting due to right renal mass Require close monitoring of renal function and electrolytes Order CBC, CMP, uric acid, TSH, and electrolytes in am Continue with antibiotics BiPAP as necessary, for respiratory distress Monitor blood pressure adjust medication doses as needed Avoid hypotensive episodes May use Dilaudid 0.5 mg IV every 6 hours as needed for severe pain Monitor blood sugars Strict intake, output, and daily weight should be monitored Please renally adjust medications Avoid nephrotoxic and nonsteroidal drugs Avoid contrast if possible Will continue to monitor renal function, anemia, electrolytes Treatment plan discussed with patient Questions were answered We have discussed with the other team physicians in detail about the care plan We will continue to monitor the patient closely ATTESTATION BY PHYSICIAN I have seen and examined the patient. I reviewed the documentation, medical decision making, and treatment plan as noted by the mid-level provider above. I agree with the findings and plan of care. MIK HOWE MD, [facility] Dec 28, 2024 14:22
[2024-12-28] MEDS: EPOETIN ALFA-EPBX (NON-ESRD) 10,000 UNIT/ML VIAL SQ ONE (14:45)
--- NOTE | 2024-12-28 14:58 | NUR ---
DCP Patient states lives with Jim Russell, Spouse [phone] in a rented house with three steps at the entrance and walk in shower. States unemployed and remains independent. States able to complete ADL's on her own. Denies medical devices. Denies home health services, home care provider or dialysis. PCP - None per patient Pharmacy - [facility]. Upon discharge, Jim Russell, Spouse [phone] and will assist with care. Provided Community Resources List. Referred to Financial Counseling. MD FARRELL - Per patient states new diagnosis of liver problems, waiting to remove fluid from abdomen. Addendum: 12/28/24 at 1502 by CORTES JUAREZ RN CM Amended: Links added.
--- NOTE | 2024-12-28 15:22 | NUR ---
DISCHARGE DISCHARGE ORDERS OBTAINED FOR PATIENT TO BE DISCHARGED HOME. DISCHARGE INSTRUCTIONS AND DOCUMENTATION GIVEN TO PATIENT AT BEDSIDE. VOICED UNDERSTANDING. IV DISCONTINUED, CATHETER INTACT, NO S/S OF INFECTION NOTED TO SITE. TOLERATED WELL. BANDS REMOVED. PATIENT WAITING FOR TRANSPORTATION.
[2024-12-29] MEDS ORDERED: FOLic ACID 1 MG TABLET PO SCH (09:00)
[2024-12-29] MEDS ORDERED: CYANOCOBALAMIN (VITAMIN B-12) 1,000 MCG TABLET PO SCH (09:00)
[2024-12-29 09:12] LABS: ANTI-SCLERODERMA 70 <0.2 AI (0.0-0.9)
[2024-12-30 20:10] LABS: ALPHA-1-ANTITRYPSIN 147 mg/dL (101-187); ALPHA-1-ANTITRYPSIN PHENOTYPE MZ (.)
== END 2024-12-28 16:00 | disposition home or self-care (01) | DRG 441 ==
LOC: EDH 07:31 → EDHIP 07:32 → UNDOADMIN 10:20 → EDHIP 10:20 → 3DH 12-28 02:30
PROVIDERS: ADMIT Internal Medicine; ATTEND Internal Medicine
DX: K76.82 Hepatic encephalopathy (principal); E43 Unspecified severe protein-calorie malnutrition; N17.0 Acute kidney failure with tubular necrosis; R18.8 Other ascites; E11.22 Type 2 diabetes mellitus with diabetic chronic kidney disease; D64.9 Anemia, unspecified; E11.65 Type 2 diabetes mellitus with hyperglycemia; E87.5 Hyperkalemia; K74.60 Unspecified cirrhosis of liver; D69.6 Thrombocytopenia, unspecified; E78.5 Hyperlipidemia, unspecified; I12.9 Hypertensive chronic kidney disease with stage 1 through stage 4 chronic kidney disease, or unspecified chronic kidney disease; K21.9 Gastro-esophageal reflux disease without esophagitis; Z68.36 Body mass index [BMI] 36.0-36.9, adult; Z79.899 Other long term (current) drug therapy
CPT/HCPCS: 36415; 70450; 71045; 74176; 76705; 80048; 80053; 80076; 80305; 81001; 82103; 82104; 82105; 82140; 82390; 82550; 82948; 83540; 83550; 83605; 83690; 83735; 84484; 85025; 85610; 85730; 86015; 86038; 86215; 86235; 86376; 86381; 86850; 86900; 86901; 87040; 93005; 93970; 96374; 96375; 99291; G0378; J1815; J1940; J2270; J3475; Q5106

== ENCOUNTER → 2025-01-19 | Outpatient (CLI) | payer MEDICAID ==
[~2025-01-19] MED LIST: CYAN-52 PO; FOLI1 PO; Lactulose 20 Gm/30 Ml Udcup PO; METF-446 PO; PANT40TA54 PO; PROP10TA10 PO
[2025-01-19 10:28] LABS: BASOPHILS # (AUTO) 0.02 K/uL (0.00-0.20); BASOPHILS % (AUTO) 0.4 % (0.0-5.0); EOSINOPHILS # (AUTO) 0.16 K/uL (0.00-0.70); EOSINOPHILS % (AUTO) 3.5 % (0.0-8.0); HEMATOCRIT 27.3 % (36-48); IMMATURE GRANULOCYTE ABSOLUTE 0.02 K/uL (0-1); LYMPHOCYTES # (AUTO) 0.7 K/uL (1.0-4.8); LYMPHOCYTES % (AUTO) 14.6 % (21.0-51.0); MEAN CORPUSCULAR HEMOGLOBIN 29.9 pg (27.0-33.0); MEAN CORPUSCULAR HGB CONC 32.6 g/dL (32.0-36.0); MEAN CORPUSCULAR VOLUME 91.6 fL (79-99); MONOCYTES # (AUTO) 0.5 K/uL (0.1-1.0); MONOCYTES % (AUTO) 11.1 % (3.0-13.0); NEUTROPHILS # (AUTO) 3.2 K/uL (1.8-7.7); PLATELET COUNT (AUTO) 108 K/uL (130-400); RED BLOOD CELL COUNT(AUTO) 2.98 MIL/uL (4.00-5.50); RED CELL DISTRIBUTION WIDTH 16.6 % (11.0-15.5); WHITE BLOOD COUNT (AUTO) 4.6 K/uL (4.8-10.8)
[2025-01-19 10:40] LABS: ALBUMIN 2.1 g/dL (3.5-5.0); BILIRUBIN,TOTAL 1.3 mg/dL (0.2-1.0); CREATININE 1.5 mg/dL (0.5-1.0); POTASSIUM 4.7 mmol/L (3.5-5.1); TOTAL PROTEIN, SERUM 7.1 g/dL (6.0-8.3)
[2025-01-19 11:00] LABS: INR 1.11 (0.85-1.15); PROTHROMBIN TIME 11.6 SEC (9.6-11.6)
[2025-01-19 11:01] LABS: PARTIAL THROMBOPLASTIN TIME 31.8 SEC (26.3-35.5)
--- NOTE | 2025-01-19 11:25 | NUR ---
U/S GD PARACENTESIS TOLERATED PROCEDURE. PERFORMED BY DR Arnol JAVIER. 3.6 LITERS OF YELLOW CLEAR FLUID REMOVED AND SENT TO LAB. PUNCTURE SITE RLQ END OF PROCEDURE 1105. DRESSING DRY AND INTACT. NO BLEEDING NOTED. DISCHARGE INSTRUCTIONS GIVEN. VERBALIZED UNDERSTANDING. DISCHARGE VIA AMBULATORY WITH SPOUSE. DENIES PAIN. A&O.
--- NOTE | 2025-01-19 14:25 | HMCIMG ---
US ABDOMINAL PARACENTESIS IR HISTORY: No additional history given. COMPARISON: None TECHNIQUE: Informed consent was obtained. Risks and benefits were explained to the patient. A timeout was performed. Patient was prepped and draped in a sterile fashion. Local anesthetics was given as required. Under ultrasound guidance, ascites fluid was localized. Paracentesis was performed. FINDINGS: 3.6 L of yellowish fluid was aspirated. Less than 2 cc blood loss is noted. Patient tolerated procedure without complication. Patient left the department in good condition. IMPRESSION: 1. Uncomplicated ultrasound guidance paracentesis.
[2025-01-19 15:33] LABS: BODY FLUID RBC 165 /cu. mm.; BODY FLUID WBC 55 /cu. mm.
[2025-01-19 15:34] LABS: APPEARANCE BODY FLUID CLEAR (CLEAR); COLOR,BODY FLUID YELLOW (LT YELLOW); SPECIMENTYPE,BODY FLUID ASCITES; TOTAL VOLUME,BODY FLUID 3600 mL
[2025-01-19 16:13] LABS: BF LYMPHOCYTE 24 %; BF MACROPHAGE 53; BF OTHER CELLS 9; BF TOTAL CELLS COUNTED 100
[2025-01-19 16:19] LABS: TOTAL PROTEIN,BODY FLUID 0.6 g/dL
[2025-01-20 08:13] LABS: ANTI-SCLERODERMA 70 <0.2 AI (0.0-0.9); HEPATITIS A ANTIBODY TOTAL Positive (Negative)
[2025-01-21 15:36] LABS: HEPATITIS A IGM ANTIBODY Non-Reactive (Nonreactive); HEPATITIS B CORE AB TOTAL Non-Reactive (Nonreactive); HEPATITIS B CORE IGM ANTIBODY Non-Reactive (Negative); HEPATITIS B SURFACE ANTIBODY Negative (Reactive); HEPATITIS B SURFACE ANTIGEN Non-Reactive (Nonreactive); HEPATITIS C ANTIBODY Non-Reactive (Nonreactive)
== END | disposition home or self-care (01) ==
LOC: RAH 09:13
PROVIDERS: ATTEND Internal Medicine
DX: R18.8 Other ascites (principal); K74.69 Other cirrhosis of liver; I10 Essential (primary) hypertension; E11.9 Type 2 diabetes mellitus without complications; J45.909 Unspecified asthma, uncomplicated; Z98.891 History of uterine scar from previous surgery; Z88.0 Allergy status to penicillin; Z79.899 Other long term (current) drug therapy
CPT/HCPCS: 49083; 83540; 83550; 84157; 80053; 85025; 89051; 85610; 85730; 86803; 87071; 87076; 87205; 82105; 82390; 82042; 82104; 86038; 82103; 86235 ×7; 86706; 87340; 86704; 86705; 86376; 86215; 86708; 86709; 36415; 86015; 86381; C1729

== ENCOUNTER 2025-02-01 05:50 | Day surgery (SDC) | payer MEDICAID ==
[2025-02-01] VITALS (13 sets, daily range): BP systolic 91–116; BP diastolic 60–80; PULSE 84–95; RESP 14–17; TEMP 97.4–97.7
[~2025-02-01] VITALS: Ht 166.4 cm; Wt 97.1 kg
[~2025-02-01 05:50] MED LIST changes: -FOLI1 PO; +ZINC50TA64 PO
[2025-02-01] MEDS ORDERED: 0.9%NACL 1000ML 1,000 ML IV ONE (06:05)
[2025-02-01] MEDS ORDERED: proPOFol 10 MG/ML 20ML VIAL IV ONE (08:37)
[2025-02-01] MEDS ORDERED: LIDOCAINE HCL 400MG/20ML VIAL ONE (08:37)
[2025-02-01] MEDS ORDERED: phenylEPHRINE HCL 10 MG/ML 1ML VIAL IV ONE (08:37)
== END 2025-02-01 10:40 | disposition home or self-care (01) ==
LOC: ENDO 05:50 → DAH 05:50 → ENDO 10:40
PROVIDERS: ATTEND Internal Medicine
DX: K74.69 Other cirrhosis of liver (principal); I85.10 Secondary esophageal varices without bleeding; K31.819 Angiodysplasia of stomach and duodenum without bleeding; K31.89 Other diseases of stomach and duodenum; K76.6 Portal hypertension; R18.8 Other ascites; G93.49 Other encephalopathy; R93.41 Abnormal radiologic findings on diagnostic imaging of renal pelvis, ureter, or bladder; J45.909 Unspecified asthma, uncomplicated; I10 Essential (primary) hypertension; E11.9 Type 2 diabetes mellitus without complications; Z88.0 Allergy status to penicillin; Z79.84 Long term (current) use of oral hypoglycemic drugs; Z79.899 Other long term (current) drug therapy
CPT/HCPCS: 43244; 00731; 82948; J3490; J7030; J2704; J2371; A4620; A4215

== ENCOUNTER → 2025-02-14 | Outpatient (CLI) | payer MEDICAID ==
[~2025-02-14] MED LIST changes: +ALBUMIN HUMAN 25% 200 ML IV ONE; -PANT40TA54 PO
--- NOTE | 2025-02-14 09:40 | NUR ---
U/S GD PARACENTESIS TOLERATED PROCEDURE. PERFORMED BY DR Arnol JAVIER. PUNCTURE SITE TO RLQ. 6.0 LITERS OF YELLOW CLOUDY FLUID REMOVED AND SENT TO LAB. ALBUMIN 25% 50 GRAMS GIVEN IV. END OF PROCEDURE AT 0920. DRESSING DRY AND INTACT. NO BLEEDING NOTED. DISCHARGE INSTRUCTIONS GIVEN. VERBALIZED UNDERSTANDING. DISCHARGE VIA AMBULATORY WITH SPOUSE. DENIES PAIN. A&O.
[2025-02-14] MEDS: ALBUMIN HUMAN 25% 200 ML IV ONE (11:10)
--- NOTE | 2025-02-14 11:10 | HMCIMG ---
US ABDOMINAL PARACENTESIS IR HISTORY: Ascites COMPARISON: None TECHNIQUE: Informed consent was obtained. Risks and benefits were explained to the patient. A timeout was performed. Patient was prepped and draped in a sterile fashion. Local anesthetics was given as required. Under ultrasound guidance, ascites fluid was localized. Paracentesis was performed. FINDINGS: 6 L of yellowish fluid was aspirated. Less than 2 cc blood loss is noted. Patient tolerated procedure without complication. Patient left the department in good condition. IMPRESSION: 1. Uncomplicated ultrasound guidance paracentesis.
[2025-02-14 12:52] LABS: BODY FLUID RBC 0 /cu. mm.; BODY FLUID WBC 3606 /cu. mm.
[2025-02-14 13:17] LABS: ALBUMIN,BODY FLUID < 0.6 g/dL; TOTAL PROTEIN,BODY FLUID < 2.0 g/dL
[2025-02-14 13:38] LABS: APPEARANCE BODY FLUID CLEAR (CLEAR); COLOR,BODY FLUID LT YELLOW (LT YELLOW); SPECIMENTYPE,BODY FLUID ASCITES; TOTAL VOLUME,BODY FLUID 6000 mL
[2025-02-14 16:08] LABS: BF LYMPHOCYTE 4 %; BF MACROPHAGE 1; BF MESOTHELIAL 1 %; BF MONOCYTE 4 %; BF TOTAL CELLS COUNTED 100
== END ==
LOC: RAH 07:52
PROVIDERS: ATTEND Internal Medicine Gastroenterology
DX: R18.8 Other ascites (principal); K74.69 Other cirrhosis of liver; I10 Essential (primary) hypertension; E11.9 Type 2 diabetes mellitus without complications; G93.49 Other encephalopathy; R93.41 Abnormal radiologic findings on diagnostic imaging of renal pelvis, ureter, or bladder; Z98.891 History of uterine scar from previous surgery; J45.909 Unspecified asthma, uncomplicated; Z88.0 Allergy status to penicillin; Z79.899 Other long term (current) drug therapy; Z79.84 Long term (current) use of oral hypoglycemic drugs
CPT/HCPCS: 49083; 84157; 89051; 87071; 87076; 87205; 82042; 88108; 88305; P9046; C1729; 96365

== ENCOUNTER 2025-02-28 15:24 | Inpatient (IN) | payer MEDICAID ==
[~2025-02-28] VITALS: Ht 165.1 cm; Wt 78.9 kg
[~2025-02-28 15:24] MED LIST changes: -ALBUMIN HUMAN 25% 200 ML IV ONE
[2025-02-28 16:19] LABS: BASOPHILS # (AUTO) 0.03 K/uL (0.00-0.20); BASOPHILS % (AUTO) 0.5 % (0.0-5.0); EOSINOPHILS # (AUTO) 0.11 K/uL (0.00-0.70); EOSINOPHILS % (AUTO) 1.8 % (0.0-8.0); HEMATOCRIT 26.9 % (36-48); IMMATURE GRANULOCYTE ABSOLUTE 0.02 K/uL (0-1); LYMPHOCYTES # (AUTO) 0.8 K/uL (1.0-4.8); LYMPHOCYTES % (AUTO) 13.6 % (21.0-51.0); MEAN CORPUSCULAR HEMOGLOBIN 30.6 pg (27.0-33.0); MEAN CORPUSCULAR HGB CONC 33.1 g/dL (32.0-36.0); MEAN CORPUSCULAR VOLUME 92.4 fL (79-99); MONOCYTES # (AUTO) 0.7 K/uL (0.1-1.0); MONOCYTES % (AUTO) 12.1 % (3.0-13.0); NEUTROPHILS # (AUTO) 4.3 K/uL (1.8-7.7); NEUTROPHILS % (AUTO) 71.7 % (40.0-77.0); PLATELET COUNT (AUTO) 139 K/uL (130-400); RED BLOOD CELL COUNT(AUTO) 2.91 MIL/uL (4.00-5.50); RED CELL DISTRIBUTION WIDTH 14.7 % (11.0-15.5)
[2025-02-28 16:29] LABS: CREATININE 2.8 mg/dL (0.5-1.0); POTASSIUM 4.8 mmol/L (3.5-5.1)
[2025-02-28 16:34] LABS: INR 1.13 (0.85-1.15); PROTHROMBIN TIME 11.8 SEC (9.6-11.6)
[2025-02-28 16:36] LABS: PARTIAL THROMBOPLASTIN TIME 30.2 SEC (26.3-35.5)
[2025-02-28] MEDS: VANCOMYCIN KIT 1 GM/250 ML IV.KIT IV ONE (17:45)
[2025-02-28] MEDS: cefTRIAXone 1G VIAL IVPB ONE (17:45)
--- NOTE | 2025-02-28 17:53 | ERN ---
ED Note History of Present Illness Stated Complaint: SENT BY DOCTOR Chief Complaint: Abdominal Pain Time Seen by MD: 15:27 Time Seen by Midlevel: 15:30 Dictation: 54-year-old female with a history of liver cirrhosis, diabetes and asthma coming in from [place] digestive office for evaluation of SBP. In office patient had PMN cells greater than 324 and was sent here for suspected SBP. Patient denies having any fever, nausea or vomiting. Complaining of mild abdominal pain. Allergies: Coded Allergies: Penicillins (Unverified Allergy, Unknown, 12/27/24) Home Meds Active Scripts Cyanocobalamin (Vitamin B-12) (Vitamin B-12) 1,000 Mcg Tablet, 1000 MCG PO DAILY for 30 Days, #30 TAB Prov:CHLOE SANABRIA [employer] 12/28/24 Reported Medications Sucralfate (Sucralfate) 1 Gram/10 Ml Oral.susp, 10 ML PO QID 02/28/25 Rifaximin (Xifaxan) 550 Mg Tablet, 1 TAB PO BID 02/28/25 Furosemide (Furosemide) 20 Mg Tablet, 1 TAB PO DAILY 02/28/25 Spironolactone (Spironolactone) 50 Mg Tablet, 1 TAB PO DAILY 02/28/25 Lactulose (Constulose) 10 Gram/15 Ml Solution, 30 ML PO Q8H 02/28/25 Pantoprazole Sodium (Pantoprazole Sodium) 40 Mg Tablet.dr, 1 TAB PO DAILY 02/28/25 Zinc Amino Acid Chelate (Zinc) 50 Mg Tablet, 50 MG PO DAILY, TAB 01/31/25 Propranolol HCl (Propranolol HCl) 10 Mg Tablet, 1 TAB PO BID for 30 Days, #60 TAB 0 Refills 12/28/24 Metformin HCl (Metformin HCl) 1,000 Mg Tablet, 1 TAB PO BID for 30 Days, #60 TAB 0 Refills 12/28/24 Discontinued Scripts [Lactulose 20 Gm/30 Ml Udcup] 20 GM/30 ML SOLUTION No Conflict Check, 20 GM PO q8 hr for 30 Days, #1 BOTTLE 1 Refill Prov:CHLOE SANABRIA [employer] 12/28/24 Past Medical History Past Medical History: Anemia, Asthma, Diabetes-Type II, GERD, Hypertension, Liver Disease Surgical History: Cholecystectomy, Surgical History Other: VARICES Review of System Dictation Constitutional: Negative for fever,chills, and weight loss Eyes: Negative for injury, pain,redness, and discharge ENT: Negative for injury,pain or swelling Cardiovascular: Negative for chest pain, palpitations, and edema Respiratory: Negative for shortness of breath, cough, and wheezing, Abdomen/GI: Generalized abdominal pain, no nausea, no vomiting, no diarrhea, and no constipation Back: Negative for injury and pain : Negative for injury, bleeding and discharge MS/Extremity: Negative for injury and deformity Skin: Negative for rash, and discoloration Neuro: Negative for headache, weakness, numbness, tingling, and seizure Psych: Negative for suicide ideation, homicidal ideation, and hallucinations Review of Systems: was completed Initial Vital Sign VS Vital Signs Date Time Temp Pulse Resp B/P (MAP) Pulse Ox O2 Delivery O2 Flow Rate FiO2 02/28/25 15:35 98.2 89 16 101/64 100 Room Air* 0 21 Physical Exam Dictation General: awake, alert, NAD Head/Face: Normocephalic, atraumatic Eyes: PERRL, EOMI, vision at baseline ENT: oral cavity clear, TMs clear, no signs of infection Neck: Trachea midline, supple, no nuchal rigidity Cardiovascular: RRR, normal S1/S2, No MRGs, no JVD Respiratory: CTAB, no respiratory distress, No rales or wheezes Abdomen: Soft, non-tender, mildly distended, normal bowel sounds, no guarding or rebound. No tense ascites Skin: Warm, dry, normal turgor, no rash MS/Extremity: Pulses equal, no cyanosis, neurovascular intact, FROM Neuro: COAx4, GCS 15, strength 5/5, CN 2-12 intact, normal cerebellar exam, normal gait, Psych: Normal behavior, mood, and affect normal Results (Laboratory/Radiology) Laboratory/Radiology Laboratory Tests Test 02/28/25 16:10 02/28/25 18:17 02/28/25 18:27 02/28/25 19:25 White Blood Count 6.0 K/uL (4.8-10.8) Red Blood Count 2.91 MIL/uL (4.00-5.50) L Hemoglobin 8.9 g/dL (12.0-16.0) L Hematocrit 26.9 % (36-48) L Mean Corpuscular Volume 92.4 fL (79-99) Mean Corpuscular Hemoglobin 30.6 pg (27.0-33.0) Mean Corpuscular Hemoglobin Concent 33.1 g/dL (32.0-36.0) Red Cell Distribution Width 14.7 % (11.0-15.5) Platelet Count 139 K/uL (130-400) Mean Platelet Volume 10.3 fL (7.5-10.5) Immature Granulocyte % (Auto) 0.3 % (0-1) Neutrophils (%) (Auto) 71.7 % (40.0-77.0) Lymphocytes (%) (Auto) 13.6 % (21.0-51.0) L Monocytes (%) (Auto) 12.1 % (3.0-13.0) Eosinophils (%) (Auto) 1.8 % (0.0-8.0) Basophils (%) (Auto) 0.5 % (0.0-5.0) Neutrophils # (Auto) 4.3 K/uL (1.8-7.7) Lymphocytes # (Auto) 0.8 K/uL (1.0-4.8) L Monocytes # (Auto) 0.7 K/uL (0.1-1.0) Eosinophils # (Auto) 0.11 K/uL (0.00-0.70) Basophils # (Auto) 0.03 K/uL (0.00-0.20) Absolute Immature Granulocyte (auto 0.02 K/uL (0-1) Nucleated Red Blood Cells 0.0 % (0.0-0.19) Prothrombin Time 11.8 SEC (9.6-11.6) H Prothromb Time International Ratio 1.13 (0.85-1.15) Activated Partial Thromboplast Time 30.2 SEC (26.3-35.5) Sodium Level 139 mmol/L (136-145) Potassium Level 4.8 mmol/L (3.5-5.1) Chloride Level 105 mmol/L (101-111) Carbon Dioxide Level 24 mmol/L (21-32) Blood Urea Nitrogen 25 mg/dL (7-18) H Creatinine 2.8 mg/dL (0.5-1.0) H Glomerular Filtration Rate Calc 19 mL/min (>90) Random Glucose 139 mg/dL (70-105) H Lactic Acid Level 3.1 mmol/L (0.8-2.5) H Total Calcium 10.5 mg/dL (8.5-10.1) H Ammonia 85 umol/L (11-32) H Influenza Type A Antigen Negative For Type A Influenza Type B Antigen Negative For Type B Hemoglobin A1c 6.6 % (4.0-6.0) H Estimated Average Glucose (eAG) 143 mg/dL (70-126) H Urine Color LIGHT-YELLOW (YELLOW) Urine Appearance CLEAR (CLEAR) Urine pH 5.5 (5.0-8.0) Urine Specific Harrison 1.008 (1.001-1.031) Urine Protein NEGATIVE mg/dL (NEGATIVE) Urine Glucose (UA) NEGATIVE mg/dL (NEGATIVE) Urine Ketones NEGATIVE mg/dL (NEGATIVE) Urine Occult Blood LARGE (NEGATIVE) H Urine Nitrate NEGATIVE (NEGATIVE) Urine Bilirubin NEGATIVE mg/dL (NEGATIVE) Urine Urobilinogen 0.2 mg/dL (0.2-1.0) Urine Leukocyte Esterase NEGATIVE Eva/uL Urine RBC 11-25 /HPF (0-1) H Urine WBC 2-5 /HPF (0-1) H Urine Squamous Epithelial Cells RARE /HPF (0-2) Urine Bacteria FEW /HPF (None Seen) Urine Hyaline Casts 2-5 /LPF (0-1 /LPF) H Test 02/28/25 20:34 02/28/25 21:13 03/01/25 05:17 03/01/25 06:35 Lactic Acid Level 2.6 mmol/L (0.8-2.5) H 2.3 mmol/L (0.8-2.5) Whole Blood Glucose 121 MG/DL (70-110) H 95 MG/DL (70-110) White Blood Count 3.3 K/uL (4.8-10.8) #L Red Blood Count 2.53 MIL/uL (4.00-5.50) L Hemoglobin 7.6 g/dL (12.0-16.0) L Hematocrit 23.1 % (36-48) L Mean Corpuscular Volume 91.3 fL (79-99) Mean Corpuscular Hemoglobin 30.0 pg (27.0-33.0) Mean Corpuscular Hemoglobin Concent 32.9 g/dL (32.0-36.0) Red Cell Distribution Width 14.6 % (11.0-15.5) Platelet Count 99 K/uL (130-400) #L Mean Platelet Volume 11.2 fL (7.5-10.5) H Immature Granulocyte % (Auto) 0.3 % (0-1) Neutrophils (%) (Auto) 69.2 % (40.0-77.0) Lymphocytes (%) (Auto) 14.8 % (21.0-51.0) L Monocytes (%) (Auto) 12.6 % (3.0-13.0) Eosinophils (%) (Auto) 2.5 % (0.0-8.0) Basophils (%) (Auto) 0.6 % (0.0-5.0) Neutrophils # (Auto) 2.3 K/uL (1.8-7.7) Lymphocytes # (Auto) 0.5 K/uL (1.0-4.8) L Monocytes # (Auto) 0.4 K/uL (0.1-1.0) Eosinophils # (Auto) 0.08 K/uL (0.00-0.70) Basophils # (Auto) 0.02 K/uL (0.00-0.20) Absolute Immature Granulocyte (auto 0.01 K/uL (0-1) Nucleated Red Blood Cells 0.0 % (0.0-0.19) Prothrombin Time 12.1 SEC (9.6-11.6) H Prothromb Time International Ratio 1.16 (0.85-1.15) H Activated Partial Thromboplast Time 30.5 SEC (26.3-35.5) Sodium Level 137 mmol/L (136-145) Potassium Level 4.0 mmol/L (3.5-5.1) Chloride Level 104 mmol/L (101-111) Carbon Dioxide Level 23 mmol/L (21-32) Blood Urea Nitrogen 24 mg/dL (7-18) H Creatinine 1.7 mg/dL (0.5-1.0) H Glomerular Filtration Rate Calc 35 mL/min (>90) Random Glucose 103 mg/dL (70-105) Total Calcium 9.8 mg/dL (8.5-10.1) Magnesium Level 1.60 mg/dL (1.80-2.40) L Total Bilirubin 1.4 mg/dL (0.2-1.0) H Direct Bilirubin 0.7 mg/dL (0.0-0.3) H Aspartate Amino Transf (AST/SGOT) 27 U/L (10-37) Alanine Aminotransferase (ALT/SGPT) 12 U/L (12-78) Alkaline Phosphatase 203 U/L (50-136) H Total Creatine Kinase 42 U/L (21-232) # B-Type Natriuretic Peptide 64 pg/mL (0-100) Total Protein 6.6 g/dL (6.0-8.3) Albumin 2.2 g/dL (3.5-5.0) L Procalcitonin 0.18 ng/mL (0.05-0.5) Labs Reviewed?: Yes ED Course ED Course Orders Procedure Category Date Status Time Cbc With Differential LAB 02/28/25 Complete 15:40 Basic Metabolic Panel LAB 02/28/25 Complete 15:40 Pt And Ptt LAB 02/28/25 Complete 15:40 Lactic Acid LAB 02/28/25 Complete 15:40 Blood Cult SHAMIR 02/28/25 In Process 15:40 Ceftriaxone 1g Vial PHA 02/28/25 Complete (Rocephine 1g Inj) 16:00 Vancomycin 1g/250ml PHA 02/28/25 Complete Kit (Vancomycin 1g/2 16:00 Ammonia LAB 02/28/25 Complete 15:53 Initiate MANJINDER 02/28/25 In Process Hyperglycemia Protoco 17:47 Insulin Regular, PHA 02/28/25 In Process Human 3ml (Humulin R 21:00 Initiate Hypoglycemia MANJINDER 02/28/25 In Process Protocol 17:47 Dextrose 50%-Water PHA 02/28/25 In Process (D50w) 18:00 Glucagon 1mg Kit PHA 02/28/25 In Process (Glucagon 1mg Kit) 18:00 Initiate Hypokalemia CPOE 02/28/25 Transmitted Po Half 17:47 Potassium Chloride PHA 02/28/25 In Process 10meq/100ml ([place] 18:00 Potassium Chl 10% PHA 02/28/25 In Process Elixir 20meq (Kcl 10% 18:00 Potassium Chloride PHA 02/28/25 Complete 20meq Er (K-Dur/Klor- 18:00 Notify Physician If CPOE 02/28/25 Transmitted There Is 17:47 Notify Md On The Next CPOE 02/28/25 Transmitted 17:47 Notify Md On The CPOE 02/28/25 Transmitted Next(Cont.) 17:47 Magnesium 2gm Premix PHA 02/28/25 In Process 50ml (Magnesium 2gm 18:00 B-Type Natriuretic LAB 03/01/25 Complete Peptide 04:00 Ammonia LAB 03/01/25 In Process 04:00 Cbc With Differential LAB 03/01/25 Complete 04:00 Hemoglobin A1c LAB 03/01/25 Complete 04:00 Influenza Type A & B, LAB 02/28/25 Complete Rapid 17:47 Lactic Acid LAB 03/01/25 In Process 04:00 Procalcitonin LAB 03/01/25 Complete 04:00 Pt And Ptt LAB 03/01/25 Complete 04:00 Admit Orders ADM 02/28/25 Transmitted 17:53 Vital Signs(Adult CPOE 02/28/25 Transmitted Hospitalist) 17:50 Daily Weights CPOE 02/28/25 Transmitted 17:50 I&O Q Shift CPOE 02/28/25 Transmitted 17:50 Diphenhydramine Hcl PHA 02/28/25 In Process (Benadryl Inj) 18:00 Acetaminophen 325 Tab PHA 02/28/25 In Process (Tylenol 325mg Tab 18:00 Acetaminophen 325 Tab PHA 02/28/25 In Process (Tylenol 325mg Tab 18:00 Ondansetron 4mg Inj PHA 02/28/25 In Process (Zofran 4mg Inj) 18:00 Zolpidem Tartrate 5 PHA 02/28/25 In Process Mg Tab (Ambien) 18:00 Mag/Alum/Simeth 30ml PHA 02/28/25 In Process (Maalox Plus 30ml) 18:00 Lactulose 20 Gm/30 Ml PHA 02/28/25 In Process Udcup (Constulose 18:00 Nitroglycerin 0.4mg PHA 02/28/25 In Process Sl Tab (Nitrostat) 18:00 Guaifenesin-Dm PHA 02/28/25 In Process 200/20mg 10ml 18:00 Famotidine 20mg Vial PHA 02/28/25 In Process (Pepcid 20mg Vial) 18:00 Nurse To Enter Home CPOE 02/28/25 Transmitted Medication 17:50 Admit Orders ADM 02/28/25 Transmitted 17:50 Activity: Ad Marjorie CPOE 02/28/25 Transmitted 17:50 Nothing By Mouth DIET 03/01/25 Transmitted Breakfast Heparin 5,000 Unit PHA 02/28/25 In Process Vial (Heparin 5,000 U 21:00 Apply Scds CPOE 02/28/25 Transmitted 17:50 Acetaminophen 325 Tab PHA 02/28/25 Complete (Tylenol 325mg Tab 18:00 Ketorolac PHA 02/28/25 Complete Tromethamine 15mg/Ml 18:00 Morphine 2mg Syg PHA 02/28/25 In Process (Morphine 2mg Syg) 18:00 Urinalysis LAB 02/28/25 Complete W/Microscopic 17:50 Gastroenterology CONPHYSVC 02/28/25 Transmitted Consult 17:58 Lactic Acid (Removed) LAB 02/28/25 Complete 19:23 Vancomycin Protocol PHA 02/28/25 In Process (Vancomycin Protocol 20:00 Vancomycin 750mg PHA 03/01/25 In Process (Vancomycin 750mg) 16:00 Vancomycin Trough LAB 03/03/25 Verified 15:00 Zolpidem Tartrate 5 PHA 03/01/25 Complete Mg Tab (Ambien) 00:00 Basic Metabolic Panel LAB 03/01/25 In Process 04:00 Creatine Kinase, Total LAB 03/01/25 In Process 04:00 Hepatic Function Panel LAB 03/01/25 In Process 04:00 Magnesium LAB 03/01/25 In Process 04:00 Us Abd Limited/Abd US 03/01/25 Taken Wall 02:42 Us Abdominal US 03/01/25 Logged Paracentesis Ir 08:00 Potassium Chloride PHA 03/01/25 In Process 10meq Sr (K-Dur 10meq 08:30 Vital Signs Date Time Temp Pulse Resp B/P (MAP) Pulse Ox O2 Delivery O2 Flow Rate FiO2 03/01/25 07:33 98.1 89 18 110/60 98 Room Air 03/01/25 03:40 98.1 88 17 99/57 96 Room Air 02/28/25 23:47 98.2 87 17 105/75 98 Room Air 02/28/25 22:59 Room Air* 0 02/28/25 20:00 98.6 87 20 117/54 100 Room Air* 0 21 02/28/25 20:00 98.2 87 20 117/54 100 Room Air 02/28/25 18:19 98.2 90 16 105/52 100 Room Air* 0 21 02/28/25 15:35 98.2 89 16 101/64 100 Room Air 0 02/28/25 15:35 98.2 89 16 101/64 100 Room Air* 0 21 Medical Decision Making MDM MDM: 54-year-old female with a history of liver cirrhosis, diabetes and asthma coming in from [place] digestive office for evaluation of SBP. In office patient had PMN cells greater than 324 and was sent here for suspected SBP. Patient denies having any fever, nausea or vomiting. Complaining of mild abdominal pain . CBC shows no leukocytosis, anemia of 8.9 hemoglobin. Chemistry shows normal electrolytes, elevated BUN and creatinine, consistent with previous visits. Lactic level is three. Pneumonias 85. Patient states she is being compliant with her medications. Scheduled a routine ultrasound-guided paracentesis. Spoke to [employer] hospitalist, okay to admit under their service. Antibiotics initiated in the emergency room. Differential diagnosis: SBP, ascites, liver cirrhosis, hyperammonemia, sepsis Rationale: Tests considered and ordered secondary to shared decision making include: labs, ECG and radiology Previous outside records reviewed: Old ER visits. Risk of complication and/or morbidity or mortality of patient management: None Medications-Per medication reconciliation Need for hospitalization: Patient does meet criteria for hospitalization. Need for emergency major/minor surgery: No There are no social concerns with this patient. Prescription drug management Prescriptions will include symptomatic care Patient's prior external medical records from other ER visits were reviewed by me as indicated. Prior testing and results from previous visits were reviewed. Prior tests were taken into account with medical decision making and resource utilization, independent historian/historians were used to obtain complete medical history. I independently interpreted the test that were performed, results were reviewed by me and considered findings on radiology if ordered. Medical management and examination interpretation discussions were had by me with other qualified healthcare professionals as indicated for the patient's care. DX & DISP Disposition: Inpatient Departure Impression: Primary Impression: Thrombocytopenia Additional Impressions: Normocytic anemia, LOREN (acute kidney injury) Condition: Stable Referrals: BRADY YIP MD (PCP) I have reviewed the case, and I agree with, Diagnosis and Plan I performed a substantive portion of the visit. I have reviewed and personally made and approve the management plan that is documented in the notes by myself with CAM/resident. I acknowledged full responsibility for the patient's management plan. SHAY LOZOYA NP February 28, 2025 17:52 HERBERTH JOHN DO March 01, 2025 08:21
[2025-02-28] MEDS ORDERED: PoTASSium chl 10% ELIXIR 20MEQ 20 MEQ/15 ML UDCUP PO PRN (18:00)
[2025-02-28] MEDS ORDERED: ketOROlac 15MG/ML VIAL (15MG/ML) IV PRN (18:00)
[2025-02-28] MEDS ORDERED: DiphenhydrAMINE HCL 50 MG/ML VIAL IV PRN (18:00)
[2025-02-28] MEDS ORDERED: LACTULOSE 20 GM/30 ML UDCUP PO PRN (18:00)
[2025-02-28] MEDS ORDERED: DEXTROSE 50%-WATER 50 ML DISP.SYRIN IV PRN (18:00)
[2025-02-28] MEDS ORDERED: GLUCAGON 1MG KIT 1 MG ML IM PRN (18:00)
[2025-02-28] MEDS ORDERED: morPHINE 2 MG SYG IVP PRN (18:00)
[2025-02-28] MEDS ORDERED: FAMOTIDINE 20MG VIAL IV PRN (18:00)
[2025-02-28] MEDS ORDERED: MAG/ALUM/SIMETH 30 ML UDCUP PO PRN (18:00)
[2025-02-28] MEDS ORDERED: NITROGLYCERIN 0.4 MG SL TAB SL PRN (18:00)
[2025-02-28] MEDS ORDERED: PoTASSium chloRIDE 10MEQ/100ML 100 ML IV PRN (18:00)
[2025-02-28] MEDS ORDERED: guaiFENesin-DM 200/20MG 10ML PO PRN (18:00)
[2025-02-28] MEDS ORDERED: PoTASSium chloRIDE 20MEQ ER 20 MEQ ERTAB PO PRN (18:00)
[2025-02-28] MEDS ORDERED: acetaMINOPHEN 325 MG TAB PO PRN ×3 (18:00)
--- NOTE | 2025-02-28 18:29 | CONS ---
GASTROENTEROLOGY CONSULTATION NOTE Date of Consultation: February 28, 2025 Time of Consultation: 18:29 History of Present Illness: This is a 54-year-old female who is known to services with past medical history of cirrhosis, diabetes, asthma, anemia, hypertension, GERD. She was directed to the ER by our office due to concern for SBP. She had abdominal distention and imaging revealing ascites. She is scheduled for paracentesis. Review of Systems: CONSTITUTIONAL: No malaise or change in sensation of wellbeing. ENMT: No rhinorrhea, otorrhea, sinus pain, ear ache. CARDIOVASCULAR: No angina, palpitations, orthopnea or paroxysmal dyspnea. RESPIRATORY: No SOB. GASTROINTESTINAL: No abdominal pain, nausea, vomiting, diarrhea, hematemesis, melena or change in the patient's habitual bowel movements consistency/number. GENITOURINARY: No dysuria, hematuria or change in bladder continence. MUSCULOSKELETAL: No new muscle pain or decrease in muscular strength. No new joint swelling, redness or tenderness. SKIN: No new rash. Past Medical History: [ ] Past Surgical History: [ ] Past Social History: [ ] Family History: [ ] Coded Allergies: Penicillins (Unverified Allergy, Unknown, 12/27/24) Physical Exam: GEN: Awake, alert, oriented in person, time and place, and in no acute distress. HEENT: No sinus tenderness. Tympanic membranes were not examined. No rhinorrhea. Oral pharyngeal mucosa is pink, moist and within normal limits. Neck is supple with no cervical lymphadenopathy, thyromegaly or JVD. CHEST: Inspection, palpation and percussion of the chest were unremarkable. Lung auscultation revealed normal breath sounds bilaterally. CARDIAC: PMI is within normal limits. Heart sounds are regular. Normal S1, S2. No gallop or murmur. ABD: Soft, non-tender and not distended. No peritoneal signs on palpation. No organomegaly. Normal bowel sounds. EXT: No cyanosis or clubbing. No edema. SKIN: Intact. No rashes. JOINTS: No evidence of synovitis or acute arthritis. NEURO: Alert and oriented to name, place and person. Cranial nerve examination is unremarkable. No focal motor deficits. Normal speech. Gait is normal. Strength is normal. Vital Sign (Last 24 Hours) 02/28/25 18:19 Temp 98.2 Pulse 90 Resp 16 B/P (MAP) 105/52 Pulse Ox 100 O2 Delivery Room Air* O2 Flow Rate 0 FiO2 21 Laboratory: [ ] Laboratory: Test 02/28/25 16:10 Range/Units White Blood Count 6.0 4.8-10.8 K/uL Red Blood Count 2.91 L 4.00-5.50 MIL/uL Hemoglobin 8.9 L 12.0-16.0 g/dL Hematocrit 26.9 L 36-48 % Mean Corpuscular Volume 92.4 79-99 fL Mean Corpuscular Hemoglobin 30.6 27.0-33.0 pg Mean Corpuscular Hemoglobin Concent 33.1 32.0-36.0 g/dL Red Cell Distribution Width 14.7 11.0-15.5 % Platelet Count 139 130-400 K/uL Mean Platelet Volume 10.3 7.5-10.5 fL Immature Granulocyte % (Auto) 0.3 0-1 % Neutrophils (%) (Auto) 71.7 40.0-77.0 % Lymphocytes (%) (Auto) 13.6 L 21.0-51.0 % Monocytes (%) (Auto) 12.1 3.0-13.0 % Eosinophils (%) (Auto) 1.8 0.0-8.0 % Basophils (%) (Auto) 0.5 0.0-5.0 % Neutrophils # (Auto) 4.3 1.8-7.7 K/uL Lymphocytes # (Auto) 0.8 L 1.0-4.8 K/uL Monocytes # (Auto) 0.7 0.1-1.0 K/uL Eosinophils # (Auto) 0.11 0.00-0.70 K/uL Basophils # (Auto) 0.03 0.00-0.20 K/uL Absolute Immature Granulocyte (auto 0.02 0-1 K/uL Nucleated Red Blood Cells 0.0 0.0-0.19 % Prothrombin Time 11.8 H 9.6-11.6 SEC Prothromb Time International Ratio 1.13 0.85-1.15 Activated Partial Thromboplast Time 30.2 26.3-35.5 SEC Sodium Level 139 136-145 mmol/L Potassium Level 4.8 3.5-5.1 mmol/L Chloride Level 105 101-111 mmol/L Carbon Dioxide Level 24 21-32 mmol/L Blood Urea Nitrogen 25 H 7-18 mg/dL Creatinine 2.8 H 0.5-1.0 mg/dL Glomerular Filtration Rate Calc 19 >90 mL/min Random Glucose 139 H 70-105 mg/dL Lactic Acid Level 3.1 H 0.8-2.5 mmol/L Total Calcium 10.5 H 8.5-10.1 mg/dL Ammonia 85 H 11-32 umol/L Current Medications Medications (Trade) Dose Ordered Sig/Dora Route PRN Reason Start Time Stop Time Status Last Admin Dose Admin Acetaminophen (TYLenol 325MG TAB) 650 mg Q4H PRN PO MILD PAIN (1-3) 02/28/25 18:00 03/30/25 17:59 UNV Acetaminophen (TYLenol 325MG TAB) 650 mg Q6H PRN PO MILD PAIN (1-3) 02/28/25 18:00 03/30/25 17:59 UNV Acetaminophen (TYLenol 325MG TAB) 650 mg Q6H PRN PO TEMPERATURE GREATER THAN 101.5 02/28/25 18:00 03/30/25 17:59 UNV Al Hydroxide/Mg Hydroxide (MAALox PLUS 30ML) 30 ml Q6H PRN PO INDIGESTION 02/28/25 18:00 03/30/25 17:59 UNV Dextrose (D50w) 50 ml AD PRN IV HYPOGLYCEMIA PROTOCOL 02/28/25 18:00 03/30/25 17:59 Diphenhydramine HCl (BENAdryl INJ) 25 mg Q6H PRN IV SEVERE ITCHING/RASH 02/28/25 18:00 03/30/25 17:59 UNV Famotidine (Pepcid 20mg Vial) 20 mg BID PRN IV NAUSEA/VOMITING 02/28/25 18:00 03/30/25 17:59 UNV Glucagon (Glucagon 1mg Kit) 1 mg AD PRN IM HYPOGLYCEMIA PROTOCOL 02/28/25 18:00 03/30/25 17:59 Guaifenesin/ Dextromethorphan (RobiTUSSin DM 200/20MG 10ML) 10 ml Q4H PRN PO COUGH 02/28/25 18:00 03/30/25 17:59 UNV Heparin Sodium (Porcine) (HEParin 5,000 UNIT VIAL) 5,000 unit BID SQ 02/28/25 21:00 03/30/25 20:59 UNV Insulin Human Regular (humuLIN R 100 UNIT/ML 3ML) INSULIN SLIDING SCAL... ACHS SQ 02/28/25 21:00 03/30/25 20:59 Ketorolac Tromethamine (toRADol) 15 mg Q8H PRN IV MODERATE PAIN (4-6) 02/28/25 18:00 03/05/25 17:59 UNV Lactulose (Constulose 20gm/ 30ml Udcup) 20 gm BID PRN PO CONSTIPATION 02/28/25 18:00 03/30/25 17:59 UNV Magnesium Sulfate 50 ml @ 0 mls/hr PROTOCOL PRN IV OTHER [SEE ORDER COMMENTS] 02/28/25 18:00 03/30/25 17:59 Morphine Sulfate (morPHINE 2MG SYG) 1 mg Q4H PRN IVP SEVERE PAIN (7-10) 02/28/25 18:00 03/07/25 17:59 UNV Nitroglycerin (Nitrostat) 0.4 mg PROTOCOL PRN SL CHEST PAIN 02/28/25 18:00 03/30/25 17:59 UNV Ondansetron HCl (zoFRAN 4MG INJ) 4 mg Q6H PRN IV NAUSEA/VOMITING 02/28/25 18:00 03/30/25 17:59 UNV Potassium Chloride 100 ml @ 100 mls/hr AD PRN IV POTASSIUM PROTOCOL 02/28/25 18:00 03/30/25 17:59 Potassium Chloride (K-Dur/Klor-Con 20meq) 10 meq AD PRN PO POTASSIUM PROTOCOL 02/28/25 18:00 03/30/25 17:59 Potassium Chloride (KCl 10% Elixir 20meq/15ml) 10 meq AD PRN PO POTASSIUM PROTOCOL 02/28/25 18:00 03/30/25 17:59 Zolpidem Tartrate (AmbIEN) 5 mg HS PRN PO INSOMNIA 02/28/25 18:00 03/30/25 17:59 UNV Diagnostics / Radiology: [COPY/PASTE HERE IF NO REPORTS PLEASE DELETE SECTION] Assessment: Ascites Decompensated Cirrhosis DM Plan: Agree with para Obtain fluid analysis Continue GI prophylaxis Advance diet as tolerated Avoid NSAIDs Antireflux measures Monitor H&H and transfuse as needed Call with questions, concerns or change in clinical status Patient to follow-up at clinic post discharge Thank you for this consult CANDY LEBLANC [employer] MANAGER February 28, 2025 18:29
[2025-02-28 18:44] LABS: INFLUENZA TYPE A Negative For Type A (NEGATIVE); INFLUENZA TYPE B Negative For Type B (NEGATIVE)
--- NOTE | 2025-02-28 19:34 | HP ---
[facility] HISTORY AND PHYSICAL Date of Service: February 28, 2025 Time of Service: 19:32 BRADY YIP MD (PCP) Attending/supervising physicians: Dr. Goins and Dr. Anish Walton HISTORY OF PRESENT ILLNESS: Ms. Russell is a 54-year-old female with a history of a cirrhosis of the liver, DM, asthma, anemia, hypertension, and GERD who presented to [facility] for evaluation of SBP (spontaneous bacterial peritonitis). The patient was sent from [facility] office after the patient had a PMN cells greater than 324 and was sent here for suspected SBP. The patient stated that she was seen by Dr. Thomas Mortensen CAM. The patient denied any fevers, nausea, vomiting. On arrival to ED ED provider reported patient had mild abdominal pain. The patient was started on vancomycin and ceftriaxone 1 gram in ED. ED provider request patient be admitted with the diagnosis of thrombocytopenia, normocytic anemia, LOREN. I assessed the patient at bedside. The patient reported that she had a paracentesis on 02/14/2025 done with 6 L removed. Patient stated that she was informed that the plan was for another paracentesis tomorrow. During my asse ssment patient's breathing was even, unlabored, appeared comfortable, in no distress. Patient denied any abdominal pain during my assessment. I informed patient of labs and plan of care. She verbalized understanding and is in agreement with the plan. Plan and assessment are listed below. REVIEW OF SYSTEMS 12-point ROS reviewed with patient. All pertinent positives mentioned above. Otherwise negative, noncontributory, or nonpertinent. PAST MEDICAL HISTORY: As mentioned above PAST SURGICAL HISTORY: Cholecystostomy, , varices surgery PAST SOCIAL HISTORY: Denied alcohol, tobacco, illicit drug use. Coded Allergies: Penicillins (Unverified Allergy, Unknown, 12/27/24) PHYSICAL EXAM GENERAL APPEARANCE: The patient is awake, alert, and oriented, in no acute cardiopulmonary distress. NEUROLOGICAL: Cranial nerves II-XII grossly intact. Motor is 5/5 in bilateral upper and lower extremities proximal to distal. No sensory deficits. HEENT: Face is symmetric. Pupils are equal and reactive. Extraocular movements are intact. NECK: Supple. No JVD. No thyromegaly. No submental, submandibular, pre- /postauricular, occipital or supraclavicular lymphadenopathy. CHEST: Normal chest expansion. No Telemetry. LUNGS: Absence of any rales, rhonchi or any wheezing. CARDIOVASCULAR: Regular. S1 and S2 normal. No appreciable rubs, murmurs or gallops. ABDOMEN: Soft, nontender, and nondistended. There is no rebound, voluntary guarding, or rigidity. : Deferred. No [place]. EXTREMITIES: Non-edematous and not cyanotic. No clubbing. Good capillary refill. SKIN: No skin breakdown. Vital Sign (Last 24 Hours) 02/28/25 18:19 Temp 98.2 Pulse 90 Resp 16 B/P (MAP) 105/52 Pulse Ox 100 O2 Delivery Room Air* O2 Flow Rate 0 FiO2 21 LABS: Laboratory: Test 02/28/25 18:17 02/28/25 16:10 Range/Units Influenza Type A Antigen Negative For Type A NEGATIVE Influenza Type B Antigen Negative For Type B NEGATIVE White Blood Count 6.0 4.8-10.8 K/uL Red Blood Count 2.91 L 4.00-5.50 MIL/uL Hemoglobin 8.9 L 12.0-16.0 g/dL Hematocrit 26.9 L 36-48 % Mean Corpuscular Volume 92.4 79-99 fL Mean Corpuscular Hemoglobin 30.6 27.0-33.0 pg Mean Corpuscular Hemoglobin Concent 33.1 32.0-36.0 g/dL Red Cell Distribution Width 14.7 11.0-15.5 % Platelet Count 139 130-400 K/uL Mean Platelet Volume 10.3 7.5-10.5 fL Immature Granulocyte % (Auto) 0.3 0-1 % Neutrophils (%) (Auto) 71.7 40.0-77.0 % Lymphocytes (%) (Auto) 13.6 L 21.0-51.0 % Monocytes (%) (Auto) 12.1 3.0-13.0 % Eosinophils (%) (Auto) 1.8 0.0-8.0 % Basophils (%) (Auto) 0.5 0.0-5.0 % Neutrophils # (Auto) 4.3 1.8-7.7 K/uL Lymphocytes # (Auto) 0.8 L 1.0-4.8 K/uL Monocytes # (Auto) 0.7 0.1-1.0 K/uL Eosinophils # (Auto) 0.11 0.00-0.70 K/uL Basophils # (Auto) 0.03 0.00-0.20 K/uL Absolute Immature Granulocyte (auto 0.02 0-1 K/uL Nucleated Red Blood Cells 0.0 0.0-0.19 % Prothrombin Time 11.8 H 9.6-11.6 SEC Prothromb Time International Ratio 1.13 0.85-1.15 Activated Partial Thromboplast Time 30.2 26.3-35.5 SEC Sodium Level 139 136-145 mmol/L Potassium Level 4.8 3.5-5.1 mmol/L Chloride Level 105 101-111 mmol/L Carbon Dioxide Level 24 21-32 mmol/L Blood Urea Nitrogen 25 H 7-18 mg/dL Creatinine 2.8 H 0.5-1.0 mg/dL Glomerular Filtration Rate Calc 19 >90 mL/min Random Glucose 139 H 70-105 mg/dL Lactic Acid Level 3.1 H 0.8-2.5 mmol/L Total Calcium 10.5 H 8.5-10.1 mg/dL Ammonia 85 H 11-32 umol/L Current Medications Medications (Trade) Dose Ordered Sig/Dora Route PRN Reason Start Time Stop Time Status Last Admin Dose Admin Acetaminophen (TYLenol 325MG TAB) 650 mg Q4H PRN PO MILD PAIN (1-3) 02/28/25 18:00 03/30/25 17:59 Acetaminophen (TYLenol 325MG TAB) 650 mg Q6H PRN PO MILD PAIN (1-3) 02/28/25 18:00 02/28/25 18:32 DC Acetaminophen (TYLenol 325MG TAB) 650 mg Q6H PRN PO TEMPERATURE GREATER THAN 101.5 02/28/25 18:00 03/30/25 17:59 Al Hydroxide/Mg Hydroxide (MAALox PLUS 30ML) 30 ml Q6H PRN PO INDIGESTION 02/28/25 18:00 03/30/25 17:59 Dextrose (D50w) 50 ml AD PRN IV HYPOGLYCEMIA PROTOCOL 02/28/25 18:00 03/30/25 17:59 Diphenhydramine HCl (BENAdryl INJ) 25 mg Q6H PRN IV SEVERE ITCHING/RASH 02/28/25 18:00 03/30/25 17:59 Famotidine (Pepcid 20mg Vial) 20 mg DAILY PRN IV NAUSEA/VOMITING 02/28/25 18:00 03/30/25 17:59 Glucagon (Glucagon 1mg Kit) 1 mg AD PRN IM HYPOGLYCEMIA PROTOCOL 02/28/25 18:00 03/30/25 17:59 Guaifenesin/ Dextromethorphan (RobiTUSSin DM 200/20MG 10ML) 10 ml Q4H PRN PO COUGH 02/28/25 18:00 03/30/25 17:59 Heparin Sodium (Porcine) (HEParin 5,000 UNIT VIAL) 5,000 unit BID SQ 02/28/25 21:00 03/30/25 20:59 Insulin Human Regular (humuLIN R 100 UNIT/ML 3ML) INSULIN SLIDING SCAL... ACHS SQ 02/28/25 21:00 03/30/25 20:59 Ketorolac Tromethamine (toRADol) 15 mg Q8H PRN IV MODERATE PAIN (4-6) 02/28/25 18:00 02/28/25 18:35 DC Lactulose (Constulose 20gm/ 30ml Udcup) 20 gm BID PRN PO CONSTIPATION 02/28/25 18:00 03/30/25 17:59 Magnesium Sulfate 50 ml @ 0 mls/hr PROTOCOL PRN IV OTHER [SEE ORDER COMMENTS] 02/28/25 18:00 03/30/25 17:59 Morphine Sulfate (morPHINE 2MG SYG) 1 mg Q4H PRN IVP SEVERE PAIN (7-10) 02/28/25 18:00 03/07/25 17:59 Nitroglycerin (Nitrostat) 0.4 mg PROTOCOL PRN SL CHEST PAIN 02/28/25 18:00 03/30/25 17:59 Ondansetron HCl (zoFRAN 4MG INJ) 4 mg Q6H PRN IV NAUSEA/VOMITING 02/28/25 18:00 03/30/25 17:59 Potassium Chloride 100 ml @ 100 mls/hr AD PRN IV POTASSIUM PROTOCOL 02/28/25 18:00 03/30/25 17:59 Potassium Chloride (K-Dur/Klor-Con 20meq) 10 meq AD PRN PO POTASSIUM PROTOCOL 02/28/25 18:00 03/30/25 17:59 Potassium Chloride (KCl 10% Elixir 20meq/15ml) 10 meq AD PRN PO POTASSIUM PROTOCOL 02/28/25 18:00 03/30/25 17:59 Zolpidem Tartrate (AmbIEN) 5 mg HS PRN PO INSOMNIA 02/28/25 18:00 03/30/25 17:59 DIAGNOSTICS / RADIOLOGY: [ ] ASSESSMENT: Suspected spontaneous bacterial peritonitis (SBP) s/p PMN cells greater than 324 Liver cirrhosis Anemia secondary to liver cirrhosis Thrombocytopenia Ascites History of right lower pole renal mass measuring 6.4 by 5.2 Cm by evidence of CT abdomen and pelvis POA Diabetes mellitus type 2 with hyperglycemia Hypoalbuminemia Protein calorie malnutrition Chronic problem list: Anemia, asthma, DM type 2, GERD, hypertension, liver disease PLAN: -Admit to medical floor with telemetry monitoring. -Continue antibiotic therapy: Rocephin and vancomycin -Consult GI in a.m.. -Obtain abdominal sonogram for evaluation of ascites. -NPO. -Plan is for paracentesis by IR ordered by day shift provider. -Avoid NSAIDs, blood thinners -p.r.n. medications for: Pain management, nausea, vomiting, constipation, hypertension -Glucometer checks AC & HS needed with insulin regular sliding scale coverage as needed. -Blood pressure checks every 4 hours and as needed. -Reconcile home medications once available. -AM labs. - Monitor renal and liver function -Monitor electrolytes and replace PRN -GI and DVT prophylaxis ADVANCED CARE PLANNING 1. Which of the following were discussed? Hospice Care - No Therapeutic options - Yes Advance Directives - Yes Other discussions - 2. Discussed with who? Patient 3. Voluntary nature of this service was explained to the patient? Yes 4. Amount of time spent - __ over 35 minutes 5. Reviewed by Physician? (if this service was performed by NPP) Yes ATTESTATION BY PHYSICIAN I have seen and examined the patient. I reviewed the documentation, medical d ecision making, and treatment plan as noted by the mid-level provider above. I agree with the findings and plan of care. ANTONIA RENEE TRAIN BRAKEMAN February 28, 2025 19:34
[2025-02-28 19:43] LABS: APPEARANCE,URINE CLEAR (CLEAR); BILIRUBIN,URINE NEGATIVE (NEGATIVE); COLOR,URINE LIGHT-YELLOW (YELLOW); GLUCOSE, URINE (UA) NEGATIVE (NEGATIVE); KETONES,URINE NEGATIVE (NEGATIVE); LEUKOCYTE ESTERASE ,URINE NEGATIVE Leu/uL (NEGATIVE); NITRATE,URINE NEGATIVE (NEGATIVE); OCCULT BLOOD,URINE LARGE (NEGATIVE); PH,URINE 5.5 (5.0-8.0); PROTEIN,URINE NEGATIVE (NEGATIVE); UROBILINOGEN,URINE 0.2 mg/dL (0.2-1.0)
[2025-02-28 19:51] LABS: BACTERIA,URINE FEW /HPF (None Seen); MUCUS,URINE RARE LPF (None Seen); SQUAMOUS EPITHELIAL CELL,UR RARE /HPF (0-2)
[2025-02-28 20:00] VITALS: BP 117/54; PULSE 87; RESP 20; TEMP 98.3
[2025-02-28] MEDS ORDERED: VANCOMYCIN PROTOCOL PER PHARMACY IV SCH (20:00)
[2025-02-28] MEDS: INSULIN humuLIN R 100 UNIT/ML 3ML SQ SCH (21:00)
[2025-02-28] MEDS: HEParin 5,000 UNIT VIAL SQ SCH (21:00)
[2025-02-28] MEDS ORDERED: SPIR50TA5 PO (21:20)
[2025-02-28] MEDS ORDERED: FURO20TA4 PO (21:20)
[2025-02-28] MEDS ORDERED: PANT40TA54 PO (21:20)
[2025-02-28] MEDS ORDERED: LACT10SO76 PO (21:20)
[2025-02-28] MEDS ORDERED: RIFA550T PO (21:21)
[2025-02-28] MEDS ORDERED: SUCR1ORA15 PO (21:21)
[2025-02-28 23:47] VITALS: BP 105/75; PULSE 87; RESP 17; TEMP 98.3
[2025-03-01] VITALS (17 sets, daily range): BP systolic 89–120; BP diastolic 40–64; PULSE 88–107; RESP 17–18; TEMP 97.9–98.2; O2SAT 97–98
[2025-03-01] MEDS ORDERED: ZOLPidem TARTrate 5 MG TAB PO SCH
[2025-03-01] MEDS: ZOLPidem TARTrate 5 MG TAB PO PRN (00:29)
[2025-03-01 02:18] LABS: HEMOGLOBIN A1C 6.6 % (4.0-6.0)
[2025-03-01 06:50] LABS: BASOPHILS # (AUTO) 0.02 K/uL (0.00-0.20); BASOPHILS % (AUTO) 0.6 % (0.0-5.0); EOSINOPHILS # (AUTO) 0.08 K/uL (0.00-0.70); EOSINOPHILS % (AUTO) 2.5 % (0.0-8.0); HEMATOCRIT 23.1 % (36-48); IMMATURE GRANULOCYTE ABSOLUTE 0.01 K/uL (0-1); LYMPHOCYTES # (AUTO) 0.5 K/uL (1.0-4.8); LYMPHOCYTES % (AUTO) 14.8 % (21.0-51.0); MEAN CORPUSCULAR HGB CONC 32.9 g/dL (32.0-36.0); MEAN CORPUSCULAR VOLUME 91.3 fL (79-99); MONOCYTES # (AUTO) 0.4 K/uL (0.1-1.0); MONOCYTES % (AUTO) 12.6 % (3.0-13.0); NEUTROPHILS # (AUTO) 2.3 K/uL (1.8-7.7); NEUTROPHILS % (AUTO) 69.2 % (40.0-77.0); PLATELET COUNT (AUTO) 99 K/uL (130-400); RED BLOOD CELL COUNT(AUTO) 2.53 MIL/uL (4.00-5.50); RED CELL DISTRIBUTION WIDTH 14.6 % (11.0-15.5); WHITE BLOOD COUNT (AUTO) 3.3 K/uL (4.8-10.8)
[2025-03-01 06:59] LABS: INR 1.16 (0.85-1.15); PROTHROMBIN TIME 12.1 SEC (9.6-11.6)
[2025-03-01 07:00] LABS: PARTIAL THROMBOPLASTIN TIME 30.5 SEC (26.3-35.5)
[2025-03-01 07:05] LABS: ALBUMIN 2.2 g/dL (3.5-5.0); BILIRUBIN,DIRECT 0.7 mg/dL (0.0-0.3); BILIRUBIN,TOTAL 1.4 mg/dL (0.2-1.0); CREATININE 1.7 mg/dL (0.5-1.0); MAGNESIUM 1.6 mg/dL (1.80-2.40); TOTAL PROTEIN, SERUM 6.6 g/dL (6.0-8.3)
[2025-03-01] MEDS ORDERED: PoTASSium chloRIDE 10MEQ SR 10 MEQ/TAB TAB.SR.24H PO PRN (08:30)
--- NOTE | 2025-03-01 08:49 | HMCIMG ---
Abdominal Limited, ascites scan Clinical Information: ascites Comparison: None Findings: There is a moderate amount of ascites throughout all 4 quadrants. Incidentally, there is splenomegaly. Impression: Moderate ascites.
--- NOTE | 2025-03-01 10:50 | NUR ---
U/S GD PARACENTESIS TOLERATED PROCEDURE. PERFORMED BY DR Cadence FLORES. PUNCTURE SITE TO LLQ. 5.0 LITER OF YELLOW CLOUDY FLUID REMOVED AND SENT TO LAB. END OF PROCEDURE AT 1040. DRESSING DRY AND INTACT. NO BLEEDING NOTED. REPORT GIVEN TO DELORES SWANSON. DENIES PAIN.A&O.
--- NOTE | 2025-03-01 11:05 | NUR ---
patient back from procedure vitals stable, blood pressure soft systolic 90s, room air, denies pain at this time, alert and oriented x4
[2025-03-01] MEDS: ALBUMIN HUMAN 25% 200 ML IV SCH (11:33)
--- NOTE | 2025-03-01 12:39 | PN ---
GASTROENTEROLOGY PROGRESS NOTE Date of Visit: March 01, 2025 Time of Visit: 12:39 Events / Notes: [This is a 54-year-old female who is known to services with past medical history of cirrhosis, diabetes, asthma, anemia, hypertension, GERD. She was directed to the ER by our office due to concern for SBP. She had abdominal distention and imaging revealing ascites. She is scheduled for paracentesis. Review of Systems: CONSTITUTIONAL: No malaise or change in sensation of wellbeing. ENMT: No rhinorrhea, otorrhea, sinus pain, ear ache. CARDIOVASCULAR: No angina, palpitations, orthopnea or paroxysmal dyspnea. RESPIRATORY: No SOB. GASTROINTESTINAL: No abdominal pain, nausea, vomiting, diarrhea, hematemesis, melena or change in the patient's habitual bowel movements consistency/number. GENITOURINARY: No dysuria, hematuria or change in bladder continence. MUSCULOSKELETAL: No new muscle pain or decrease in muscular strength. No new joint swelling, redness or tenderness. SKIN: No new rash. Physical Exam: GEN: Awake, alert, oriented in person, time and place, and in no acute distress. HEENT: No sinus tenderness. Tympanic membranes were not examined. No rhinorrhea. Oral pharyngeal mucosa is pink, moist and within normal limits. Neck is supple with no cervical lymphadenopathy, thyromegaly or JVD. CHEST: Inspection, palpation and percussion of the chest were unremarkable. Lung auscultation revealed normal breath sounds bilaterally. CARDIAC: PMI is within normal limits. Heart sounds are regular. Normal S1, S2. No gallop or murmur. ABD: Soft, non-tender and not distended. No peritoneal signs on palpation. No organomegaly. Normal bowel sounds. EXT: No cyanosis or clubbing. No edema. SKIN: Intact. No rashes. JOINTS: No evidence of synovitis or acute arthritis. NEURO: Alert and oriented to name, place and person. Cranial nerve examination is unremarkable. No focal motor deficits. Normal speech. Gait is normal. Strength is normal. Vital Signs (last 8hr) Date Time Temp Pulse Resp B/P (MAP) Pulse Ox O2 Delivery O2 Flow Rate FiO2 03/01/25 07:33 98.1 89 18 110/60 98 Room Air Laboratory: [ ] Laboratory: Test 03/01/25 11:13 03/01/25 06:35 02/28/25 19:25 5/5/25 18:27 Range/Units Whole Blood Glucose 104 70-110 MG/DL White Blood Count 3.3 #L 4.8-10.8 K/uL Red Blood Count 2.53 L 4.00-5.50 MIL/uL Hemoglobin 7.6 L 12.0-16.0 g/dL Hematocrit 23.1 L 36-48 % Mean Corpuscular Volume 91.3 79-99 fL Mean Corpuscular Hemoglobin 30.0 27.0-33.0 pg Mean Corpuscular Hemoglobin Concent 32.9 32.0-36.0 g/dL Red Cell Distribution Width 14.6 11.0-15.5 % Platelet Count 99 #L 130-400 K/uL Mean Platelet Volume 11.2 H 7.5-10.5 fL Immature Granulocyte % (Auto) 0.3 0-1 % Neutrophils (%) (Auto) 69.2 40.0-77.0 % Lymphocytes (%) (Auto) 14.8 L 21.0-51.0 % Monocytes (%) (Auto) 12.6 3.0-13.0 % Eosinophils (%) (Auto) 2.5 0.0-8.0 % Basophils (%) (Auto) 0.6 0.0-5.0 % Neutrophils # (Auto) 2.3 1.8-7.7 K/uL Lymphocytes # (Auto) 0.5 L 1.0-4.8 K/uL Monocytes # (Auto) 0.4 0.1-1.0 K/uL Eosinophils # (Auto) 0.08 0.00-0.70 K/uL Basophils # (Auto) 0.02 0.00-0.20 K/uL Absolute Immature Granulocyte (auto 0.01 0-1 K/uL Nucleated Red Blood Cells 0.0 0.0-0.19 % Prothrombin Time 12.1 H 9.6-11.6 SEC Prothromb Time International Ratio 1.16 H 0.85-1.15 Activated Partial Thromboplast Time 30.5 26.3-35.5 SEC Sodium Level 137 136-145 mmol/L Potassium Level 4.0 3.5-5.1 mmol/L Chloride Level 104 101-111 mmol/L Carbon Dioxide Level 23 21-32 mmol/L Blood Urea Nitrogen 24 H 7-18 mg/dL Creatinine 1.7 H 0.5-1.0 mg/dL Glomerular Filtration Rate Calc 35 >90 mL/min Random Glucose 103 70-105 mg/dL Lactic Acid Level 2.3 0.8-2.5 mmol/L Total Calcium 9.8 8.5-10.1 mg/dL Magnesium Level 1.60 L 1.80-2.40 mg/dL Total Bilirubin 1.4 H 0.2-1.0 mg/dL Direct Bilirubin 0.7 H 0.0-0.3 mg/dL Aspartate Amino Transf (AST/SGOT) 27 10-37 U/L Alanine Aminotransferase (ALT/SGPT) 12 12-78 U/L Alkaline Phosphatase 203 H 50-136 U/L Ammonia 65 H 11-32 umol/L Total Creatine Kinase 42 # 21-232 U/L B-Type Natriuretic Peptide 64 0-100 pg/mL Total Protein 6.6 6.0-8.3 g/dL Albumin 2.2 L 3.5-5.0 g/dL Procalcitonin 0.18 0.05-0.5 ng/mL Urine Color LIGHT-YELLOW YELLOW Urine Appearance CLEAR CLEAR Urine pH 5.5 5.0-8.0 Urine Specific [place] 1.008 1.001-1.031 Urine Protein NEGATIVE NEGATIVE mg/dL Urine Glucose (UA) NEGATIVE NEGATIVE mg/dL Urine Ketones NEGATIVE NEGATIVE mg/dL Urine Occult Blood LARGE H NEGATIVE Urine Nitrate NEGATIVE NEGATIVE Urine Bilirubin NEGATIVE NEGATIVE mg/dL Urine Urobilinogen 0.2 0.2-1.0 mg/dL Urine Leukocyte Esterase NEGATIVE NEGATIVE Eva/uL Urine RBC 11-25 H 0-1 /HPF Urine WBC 2-5 H 0-1 /HPF Urine Squamous Epithelial Cells RARE 0-2 /HPF Urine Bacteria FEW None Seen /HPF Urine Hyaline Casts 2-5 H 0-1 /LPF /LPF Hemoglobin A1c 6.6 H 4.0-6.0 % Estimated Average Glucose (eAG) 143 H 70-126 mg/dL Test 02/28/25 18:17 Range/Units Influenza Type A Antigen Negative For Type A NEGATIVE Influenza Type B Antigen Negative For Type B NEGATIVE Current Medications Medications (Trade) Dose Ordered Sig/Dora Route PRN Reason Start Time Stop Time Status Last Admin Dose Admin Acetaminophen (TYLenol 325MG TAB) 650 mg Q4H PRN PO MILD PAIN (1-3) 02/28/25 18:00 03/30/25 17:59 Acetaminophen (TYLenol 325MG TAB) 650 mg Q6H PRN PO MILD PAIN (1-3) 02/28/25 18:00 02/28/25 18:32 DC Acetaminophen (TYLenol 325MG TAB) 650 mg Q6H PRN PO TEMPERATURE GREATER THAN 101.5 02/28/25 18:00 03/30/25 17:59 Al Hydroxide/Mg Hydroxide (MAALox PLUS 30ML) 30 ml Q6H PRN PO INDIGESTION 02/28/25 18:00 03/30/25 17:59 Albumin Human 200 ml @ 0 mls/hr AD IV 03/01/25 11:00 03/31/25 10:59 03/01/25 11:33 0 MLS/HR Dextrose (D50w) 50 ml AD PRN IV HYPOGLYCEMIA PROTOCOL 02/28/25 18:00 03/30/25 17:59 Diphenhydramine HCl (BENAdryl INJ) 25 mg Q6H PRN IV SEVERE ITCHING/RASH 02/28/25 18:00 03/30/25 17:59 Famotidine (Pepcid 20mg Vial) 20 mg DAILY PRN IV NAUSEA/VOMITING 02/28/25 18:00 03/30/25 17:59 Glucagon (Glucagon 1mg Kit) 1 mg AD PRN IM HYPOGLYCEMIA PROTOCOL 02/28/25 18:00 03/30/25 17:59 Guaifenesin/ Dextromethorphan (RobiTUSSin DM 200/20MG 10ML) 10 ml Q4H PRN PO COUGH 02/28/25 18:00 03/30/25 17:59 Heparin Sodium (Porcine) (HEParin 5,000 UNIT VIAL) 5,000 unit BID SQ 02/28/25 21:00 03/30/25 20:59 Hold Insulin Human Regular (humuLIN R 100 UNIT/ML 3ML) INSULIN SLIDING SCAL... ACHS SQ 02/28/25 21:00 03/30/25 20:59 Ketorolac Tromethamine (toRADol) 15 mg Q8H PRN IV MODERATE PAIN (4-6) 02/28/25 18:00 02/28/25 18:35 DC Lactulose (Constulose 20gm/ 30ml Udcup) 20 gm BID PRN PO CONSTIPATION 02/28/25 18:00 03/30/25 17:59 Magnesium Sulfate 50 ml @ 0 mls/hr PROTOCOL PRN IV OTHER [SEE ORDER COMMENTS] 02/28/25 18:00 03/30/25 17:59 Morphine Sulfate (morPHINE 2MG SYG) 1 mg Q4H PRN IVP SEVERE PAIN (7-10) 02/28/25 18:00 03/07/25 17:59 Nitroglycerin (Nitrostat) 0.4 mg PROTOCOL PRN SL CHEST PAIN 02/28/25 18:00 03/30/25 17:59 Ondansetron HCl (zoFRAN 4MG INJ) 4 mg Q6H PRN IV NAUSEA/VOMITING 02/28/25 18:00 03/30/25 17:59 Potassium Chloride 100 ml @ 100 mls/hr AD PRN IV POTASSIUM PROTOCOL 02/28/25 18:00 03/30/25 17:59 Potassium Chloride (K-Dur 10meq Sr Tab) 10 meq AD PRN PO POTASSIUM PROTOCOL 03/01/25 08:30 03/30/25 17:59 Potassium Chloride (K-Dur/Klor-Con 20meq) 10 meq AD PRN PO POTASSIUM PROTOCOL 02/28/25 18:00 03/01/25 08:14 DC Potassium Chloride (KCl 10% Elixir 20meq/15ml) 10 meq AD PRN PO POTASSIUM PROTOCOL 02/28/25 18:00 03/30/25 17:59 Vancomycin HCl (Vancomycin 750mg) 750 mg Q24H IVPB 03/01/25 16:00 03/11/25 15:59 Vancomycin HCl (Vancomycin Protocol) 1 each AD IV 02/28/25 20:00 03/14/25 19:59 Zolpidem Tartrate (AmbIEN) 5 mg HS PRN PO INSOMNIA 02/28/25 18:00 03/30/25 17:59 03/01/25 00:29 5 MG Zolpidem Tartrate (AmbIEN) 10 mg HS PO 03/01/25 00:00 03/01/25 00:25 DC Diagnostics / Radiology: [COPY/PASTE HERE IF NO REPORTS PLEASE DELETE SECTION] Assessment: Ascites Decompensated Cirrhosis DM Plan: Agree with para Obtain fluid analysis Continue GI prophylaxis Advance diet as tolerated Avoid NSAIDs Antireflux measures Monitor H&H and transfuse as needed Call with questions, concerns or change in clinical status Patient to follow-up at clinic post discharge Thank you for this consult CANDY LEBLANC TRACK GRINDER March 01, 2025 12:39
--- NOTE | 2025-03-01 13:20 | PN ---
[facility] PROGRESS NOTE Date of Service: March 01, 2025 Time of Service: 13:11 SUBJECTIVE: Patient is a 54-year-old female with a history of a cirrhosis of the liver, DM, asthma, anemia, hypertension, and GERD who presented to [facility] ED for evaluation of SBP (spontaneous bacterial peritonitis). The patient was sent from [facility] office after the patient had a PMN cells greater than 324 and was sent here for suspected SBP. The patient stated that she was seen by Dr. Thomas LEVY. The patient denied any fevers, nausea, vomiting. The patient was started on vancomycin and ceftriaxone 1 gram in ED. ED provider request patient be admitted with the diagnosis of thrombocytopenia, normocytic anemia, LOREN. 03/01: Patient was seen this morning at bedside. The patient had a paracentesis this morning, removing 5L of fluid. Ascitic fluid cultures pending. The patient denies chest pain, shortness of breath, nausea, vomiting, fever, and chills. Hepatitis panel will be obtained. We will continue to follow GI recommendations. REVIEW OF SYSTEMS 12-point ROS reviewed with patient. All pertinent positives mentioned above. Otherwise negative, noncontributory, or nonpertinent. PHYSICAL EXAM GENERAL APPEARANCE: The patient is awake, alert, and oriented, in no acute cardiopulmonary distress. NEUROLOGICAL: Cranial nerves II-XII grossly intact. Motor is 5/5 in bilateral upper and lower extremities proximal to distal. No sensory deficits. HEENT: Face is symmetric. Pupils are equal and reactive. Extraocular movements are intact. NECK: Supple. No JVD. No thyromegaly. No submental, submandibular, pre- /postauricular, occipital or supraclavicular lymphadenopathy. CHEST: Normal chest expansion. No Telemetry. LUNGS: Absence of any rales, rhonchi or any wheezing. CARDIOVASCULAR: Regular. S1 and S2 normal. No appreciable rubs, murmurs or gallops. ABDOMEN: Soft, nontender, and nondistended. There is no rebound, voluntary gu arding, or rigidity. : Deferred. No Vallejo. EXTREMITIES: Non-edematous and not cyanotic. No clubbing. Good capillary refill. SKIN: No skin breakdown. Vital Signs (last 8hr) Date Time Temp Pulse Resp B/P (MAP) Pulse Ox O2 Delivery O2 Flow Rate FiO2 03/01/25 12:30 89 18 90/44 100 Room Air 03/01/25 12:00 91 18 112/56 100 Room Air 03/01/25 11:45 89 18 103/53 100 Room Air 03/01/25 11:30 92 18 101/59 100 Room Air 03/01/25 11:15 90 18 89/43 100 Room Air 03/01/25 11:05 98.2 92 18 90/40 100 Room Air 03/01/25 07:33 98.1 89 18 110/60 98 Room Air LABS: Laboratory: Test 03/01/25 11:13 03/01/25 06:35 02/28/25 19:25 02/28/25 18:27 Range/Units Whole Blood Glucose 104 70-110 MG/DL White Blood Count 3.3 #L 4.8-10.8 K/uL Red Blood Count 2.53 L 4.00-5.50 MIL/uL Hemoglobin 7.6 L 12.0-16.0 g/dL Hematocrit 23.1 L 36-48 % Mean Corpuscular Volume 91.3 79-99 fL Mean Corpuscular Hemoglobin 30.0 27.0-33.0 pg Mean Corpuscular Hemoglobin Concent 32.9 32.0-36.0 g/dL Red Cell Distribution Width 14.6 11.0-15.5 % Platelet Count 99 #L 130-400 K/uL Mean Platelet Volume 11.2 H 7.5-10.5 fL Immature Granulocyte % (Auto) 0.3 0-1 % Neutrophils (%) (Auto) 69.2 40.0-77.0 % Lymphocytes (%) (Auto) 14.8 L 21.0-51.0 % Monocytes (%) (Auto) 12.6 3.0-13.0 % Eosinophils (%) (Auto) 2.5 0.0-8.0 % Basophils (%) (Auto) 0.6 0.0-5.0 % Neutrophils # (Auto) 2.3 1.8-7.7 K/uL Lymphocytes # (Auto) 0.5 L 1.0-4.8 K/uL Monocytes # (Auto) 0.4 0.1-1.0 K/uL Eosinophils # (Auto) 0.08 0.00-0.70 K/uL Basophils # (Auto) 0.02 0.00-0.20 K/uL Absolute Immature Granulocyte (auto 0.01 0-1 K/uL Nucleated Red Blood Cells 0.0 0.0-0.19 % Prothrombin Time 12.1 H 9.6-11.6 SEC Prothromb Time International Ratio 1.16 H 0.85-1.15 Activated Partial Thromboplast Time 30.5 26.3-35.5 SEC Sodium Level 137 136-145 mmol/L Potassium Level 4.0 3.5-5.1 mmol/L Chloride Level 104 101-111 mmol/L Carbon Dioxide Level 23 21-32 mmol/L Blood Urea Nitrogen 24 H 7-18 mg/dL Creatinine 1.7 H 0.5-1.0 mg/dL Glomerular Filtration Rate Calc 35 >90 mL/min Random Glucose 103 70-105 mg/dL Lactic Acid Level 2.3 0.8-2.5 mmol/L Total Calcium 9.8 8.5-10.1 mg/dL Magnesium Level 1.60 L 1.80-2.40 mg/dL Total Bilirubin 1.4 H 0.2-1.0 mg/dL Direct Bilirubin 0.7 H 0.0-0.3 mg/dL Aspartate Amino Transf (AST/SGOT) 27 10-37 U/L Alanine Aminotransferase (ALT/SGPT) 12 12-78 U/L Alkaline Phosphatase 203 H 50-136 U/L Ammonia 65 H 11-32 umol/L Total Creatine Kinase 42 # 21-232 U/L B-Type Natriuretic Peptide 64 0-100 pg/mL Total Protein 6.6 6.0-8.3 g/dL Albumin 2.2 L 3.5-5.0 g/dL Procalcitonin 0.18 0.05-0.5 ng/mL Urine Color LIGHT-YELLOW YELLOW Urine Appearance CLEAR CLEAR Urine pH 5.5 5.0-8.0 Urine Specific Mingus 1.008 1.001-1.031 Urine Protein NEGATIVE NEGATIVE mg/dL Urine Glucose (UA) NEGATIVE NEGATIVE mg/dL Urine Ketones NEGATIVE NEGATIVE mg/dL Urine Occult Blood LARGE H NEGATIVE Urine Nitrate NEGATIVE NEGATIVE Urine Bilirubin NEGATIVE NEGATIVE mg/dL Urine Urobilinogen 0.2 0.2-1.0 mg/dL Urine Leukocyte Esterase NEGATIVE NEGATIVE Eva/uL Urine RBC 11-25 H 0-1 /HPF Urine WBC 2-5 H 0-1 /HPF Urine Squamous Epithelial Cells RARE 0-2 /HPF Urine Bacteria FEW None Seen /HPF Urine Hyaline Casts 2-5 H 0-1 /LPF /LPF Hemoglobin A1c 6.6 H 4.0-6.0 % Estimated Average Glucose (eAG) 143 H 70-126 mg/dL Test 02/28/25 18:17 Range/Units Influenza Type A Antigen Negative For Type A NEGATIVE Influenza Type B Antigen Negative For Type B NEGATIVE Current Medications Medications (Trade) Dose Ordered Sig/Dora Route PRN Reason Start Time Stop Time Status Last Admin Dose Admin Acetaminophen (TYLenol 325MG TAB) 650 mg Q4H PRN PO MILD PAIN (1-3) 02/28/25 18:00 03/30/25 17:59 Acetaminophen (TYLenol 325MG TAB) 650 mg Q6H PRN PO MILD PAIN (1-3) 02/28/25 18:00 02/28/25 18:32 DC Acetaminophen (TYLenol 325MG TAB) 650 mg Q6H PRN PO TEMPERATURE GREATER THAN 101.5 02/28/25 18:00 03/30/25 17:59 Al Hydroxide/Mg Hydroxide (MAALox PLUS 30ML) 30 ml Q6H PRN PO INDIGESTION 02/28/25 18:00 03/30/25 17:59 Albumin Human 200 ml @ 0 mls/hr AD IV 03/01/25 11:00 03/31/25 10:59 03/01/25 11:33 0 MLS/HR Dextrose (D50w) 50 ml AD PRN IV HYPOGLYCEMIA PROTOCOL 02/28/25 18:00 03/30/25 17:59 Diphenhydramine HCl (BENAdryl INJ) 25 mg Q6H PRN IV SEVERE ITCHING/RASH 02/28/25 18:00 03/30/25 17:59 Famotidine (Pepcid 20mg Vial) 20 mg DAILY PRN IV NAUSEA/VOMITING 02/28/25 18:00 03/30/25 17:59 Glucagon (Glucagon 1mg Kit) 1 mg AD PRN IM HYPOGLYCEMIA PROTOCOL 02/28/25 18:00 03/30/25 17:59 Guaifenesin/ Dextromethorphan (RobiTUSSin DM 200/20MG 10ML) 10 ml Q4H PRN PO COUGH 02/28/25 18:00 03/30/25 17:59 Heparin Sodium (Porcine) (HEParin 5,000 UNIT VIAL) 5,000 unit BID SQ 02/28/25 21:00 03/30/25 20:59 Hold Insulin Human Regular (humuLIN R 100 UNIT/ML 3ML) INSULIN SLIDING SCAL... ACHS SQ 02/28/25 21:00 03/30/25 20:59 Ketorolac Tromethamine (toRADol) 15 mg Q8H PRN IV MODERATE PAIN (4-6) 02/28/25 18:00 02/28/25 18:35 DC Lactulose (Constulose 20gm/ 30ml Udcup) 20 gm BID PRN PO CONSTIPATION 02/28/25 18:00 03/30/25 17:59 Magnesium Sulfate 50 ml @ 0 mls/hr PROTOCOL PRN IV OTHER [SEE ORDER COMMENTS] 02/28/25 18:00 03/30/25 17:59 Morphine Sulfate (morPHINE 2MG SYG) 1 mg Q4H PRN IVP SEVERE PAIN (7-10) 02/28/25 18:00 03/07/25 17:59 Nitroglycerin (Nitrostat) 0.4 mg PROTOCOL PRN SL CHEST PAIN 02/28/25 18:00 03/30/25 17:59 Ondansetron HCl (zoFRAN 4MG INJ) 4 mg Q6H PRN IV NAUSEA/VOMITING 02/28/25 18:00 03/30/25 17:59 Potassium Chloride 100 ml @ 100 mls/hr AD PRN IV POTASSIUM PROTOCOL 02/28/25 18:00 03/30/25 17:59 Potassium Chloride (K-Dur 10meq Sr Tab) 10 meq AD PRN PO POTASSIUM PROTOCOL 03/01/25 08:30 03/30/25 17:59 Potassium Chloride (K-Dur/Klor-Con 20meq) 10 meq AD PRN PO POTASSIUM PROTOCOL 02/28/25 18:00 03/01/25 08:14 DC Potassium Chloride (KCl 10% Elixir 20meq/15ml) 10 meq AD PRN PO POTASSIUM PROTOCOL 02/28/25 18:00 03/30/25 17:59 Vancomycin HCl (Vancomycin 750mg) 750 mg Q24H IVPB 03/01/25 16:00 03/11/25 15:59 Vancomycin HCl (Vancomycin Protocol) 1 each AD IV 02/28/25 20:00 03/14/25 19:59 Zolpidem Tartrate (AmbIEN) 5 mg HS PRN PO INSOMNIA 02/28/25 18:00 03/30/25 17:59 03/01/25 00:29 5 MG Zolpidem Tartrate (AmbIEN) 10 mg HS PO 03/01/25 00:00 03/01/25 00:25 DC DIAGNOSTICS / RADIOLOGY: [facility] [address] [place] [address] IMAGING REPORT Signed PATIENT: SINGH DREW MR#: [id number] : 1970 SEX: F AGE: 54 LOCATION: [facility] ORDER 9 STATUS: ADM IN REPORT#: [id number] SERVICE 0242 REASON: ascites ORDERING PHYSICIAN: ANTONIA RENEE LICENSED MENTAL HEALTH COUNSELOR PROCEDURE: ABD WALL - US ABD LIMITED/ABD WALL Abdominal Limited, ascites scan Clinical Information: ascites Comparison: None Findings: There is a moderate amount of ascites throughout all 4 quadrants. Incidentally, there is splenomegaly. Impression: Moderate ascites. DICTATED BY: NO FLORES MD DATE: 03/01/25 0847 ELECTRONICALLY SIGNED BY: NO FLORES MD DATE: 03/01/25 0950 ASSESSMENT: Suspected spontaneous bacterial peritonitis (SBP) s/p PMN cells greater than 324 Liver cirrhosis Anemia secondary to liver cirrhosis Thrombocytopenia Ascites History of right lower pole renal mass measuring 6.4 by 5.2 Cm by evidence of CT abdomen and pelvis POA Diabetes mellitus type 2 with hyperglycemia Hypoalbuminemia Protein calorie malnutrition Chronic problem list: Anemia, asthma, DM type 2, GERD, hypertension, liver disease PLAN: Suspected spontaneous bacterial peritonitis: -Continue antibiotic therapy: Rocephin and vancomycin -Follow Gastroenterology recommendations -Abdominal ultrasound: moderate ascites and splenomegaly. -Currently NPO. Advance diet per GI recommendations. -Paracentesis today: 5L removed. Fluid sent for cultures. -Obtain hepatitis panel. -Replace electrolytes as needed. CHICO MCARTHUR MD March 01, 2025 13:20
--- NOTE | 2025-03-01 13:35 | NUR ---
DCP Pt awake, alert, oriented X3 lives with Jim uRssell [phone]. PCP is Dr Gilbert. Pt is independent does not use any medical equipment, has not had home health services, or been residential facility. Anticipates discharge plan is for home. Addendum: 03/01/25 at 1340 by SARAH CALIX RN CM Amended: Links added.
--- NOTE | 2025-03-01 15:57 | HMCIMG ---
ULTRASOUND GUIDED PARACENTESIS: INDICATION: Ascites TECHNIQUE: Informed consent was obtained. Timeout performed. All elements of maximal sterile barrier technique, including hand hygiene and cutaneous antisepsis were used. Patient was placed supine. Left lower quadrant was prepped and draped in sterile fashion. Local anesthesia was applied. Then, under ultrasound guidance, a 5F centesis needle was advanced through the abdominal wall and into a pocket of fluid in the peritoneum. It yielded 5 L of fluid. The catheter was removed and sterile dressing applied. Blood pressure monitoring was performed during the procedure. Complications: None Blood loss: <5 mL. IMPRESSION: Successful ultrasound guided paracentesis.
[2025-03-01 16:40] LABS: BODY FLUID RBC 0 /cu. mm.; BODY FLUID WBC 203 /cu. mm.
[2025-03-01 16:43] LABS: APPEARANCE BODY FLUID CLEAR (CLEAR); COLOR,BODY FLUID LT YELLOW (LT YELLOW); SPECIMENTYPE,BODY FLUID ASCITES; TOTAL VOLUME,BODY FLUID 5000 mL
[2025-03-01] MEDS: VANCOMYCIN 750MG VIAL IVPB SCH (16:46)
[2025-03-01] MEDS ORDERED: LACTULOSE PO SCH (17:00)
[2025-03-01 17:13] LABS: BF LYMPHOCYTE 28 %; BF MACROPHAGE 58; BF MESOTHELIAL 7 %; BF OTHER CELLS 3; BF TOTAL CELLS COUNTED 100
[2025-03-02] VITALS (7 sets, daily range): BP systolic 89–114; BP diastolic 47–61; PULSE 58–107; RESP 16–18; TEMP 98.3–98.7; O2SAT 95–97
[2025-03-02] MEDS: MAGNESIUM 2GM PREMIX 50ML 50 ML IV PRN (02:22)
[2025-03-02 06:13] LABS: BASOPHILS # (AUTO) 0.02 K/uL (0.00-0.20); BASOPHILS % (AUTO) 0.6 % (0.0-5.0); EOSINOPHILS # (AUTO) 0.06 K/uL (0.00-0.70); EOSINOPHILS % (AUTO) 1.7 % (0.0-8.0); HEMATOCRIT 22.5 % (36-48); IMMATURE GRANULOCYTE ABSOLUTE 0.02 K/uL (0-1); LYMPHOCYTES # (AUTO) 0.4 K/uL (1.0-4.8); MEAN CORPUSCULAR HEMOGLOBIN 30.2 pg (27.0-33.0); MEAN CORPUSCULAR HGB CONC 32.9 g/dL (32.0-36.0); MEAN CORPUSCULAR VOLUME 91.8 fL (79-99); MONOCYTES # (AUTO) 0.4 K/uL (0.1-1.0); NEUTROPHILS # (AUTO) 2.6 K/uL (1.8-7.7); NEUTROPHILS % (AUTO) 73.1 % (40.0-77.0); PLATELET COUNT (AUTO) 88 K/uL (130-400); RED BLOOD CELL COUNT(AUTO) 2.45 MIL/uL (4.00-5.50); RED CELL DISTRIBUTION WIDTH 14.4 % (11.0-15.5); WHITE BLOOD COUNT (AUTO) 3.5 K/uL (4.8-10.8)
[2025-03-02 06:40] LABS: ALBUMIN 2.6 g/dL (3.5-5.0); BILIRUBIN,TOTAL 1.7 mg/dL (0.2-1.0); CREATININE 1.6 mg/dL (0.5-1.0); POTASSIUM 3.9 mmol/L (3.5-5.1); TOTAL PROTEIN, SERUM 6.6 g/dL (6.0-8.3)
[2025-03-02] MEDS: (Zinc Amino Acid Chelate (Zinc) 50 MG) PO SCH (09:00)
[2025-03-02] MEDS: CYANOCOBALAMIN (VITAMIN B-12) 1,000 MCG TABLET PO SCH (09:00)
[2025-03-02] MEDS: SPIRONOLACTONE 25 MG TAB PO SCH (09:00)
[2025-03-02 10:21] LABS: INR 1.15 (0.85-1.15)
[2025-03-02 10:33] LABS: % IRON SATURATION 27.4 % (22-44)
--- NOTE | 2025-03-02 10:48 | PN ---
[facility] PROGRESS NOTE Date of Service: March 02, 2025 Time of Service: 10:38 SUBJECTIVE: Patient is a 54-year-old female with a history of a cirrhosis of the liver, DM, asthma, anemia, hypertension, and GERD who presented [place] [facility] for evaluation of SBP (spontaneous bacterial peritonitis). The patient was sent from [facility] office after the patient had a PMN cells greater than 324 and was sent here for suspected SBP. The patient stated that she was seen by Dr. Thomas LEVY. The patient denied any fevers, nausea, vomiting. The patient was started on vancomycin and ceftriaxone 1 gram in ED. ED provider request patient be admitted with the diagnosis of thrombocytopenia, normocytic anemia, LOREN. 03/01: Patient was seen this morning at bedside. The patient had a paracentesis this morning, removing 5L of fluid. Ascitic fluid cultures pending. The patient denies chest pain, shortness of breath, nausea, vomiting, fever, and chills. Hepatitis panel will be obtained. We will continue to follow GI recommendations. 03/02: Patient was seen and examined this morning at bedside. The patient had 5L of ascitic fluid removed yesterday during a paracentesis. Paracentesis fluid studies reveal WBC 203, Neutrophils 4.0, RBC 0. On labs this morning, A downward trend of her hemoglobin and platelet count was noted. Hemoglobin is 7.4, down from 7.6, 8.9. Platelet count is 88, down from 99, 139. The patient denies melena, hematemesis, abdominal pain, nausea, vomiting, fever, chills, and palpitations. Patient is still NPO. Ct abdomen/pelvis with IV contrast deferred at this time due to elevated creatinine (1.6) and risk of contrast-induced nephropathy. Iron studies, type and screen, PT/PTT/INR, and lactate ordered to evaluate for bleeding and end-organ perfusion. Nursing staff instructed to notify GI team urgently for evaluation. Will continue to monitor for hemodynamic stability. REVIEW OF SYSTEMS 12-point ROS reviewed with patient. All pertinent positives mentioned above. Otherwise negative, noncontributory, or nonpertinent. PHYSICAL EXAM GENERAL APPEARANCE: The patient is awake, alert, and oriented, in no acute cardiopulmonary distress. NEUROLOGICAL: Cranial nerves II-XII grossly intact. Motor is 5/5 in bilateral upper and lower extremities proximal to distal. No sensory deficits. HEENT: Face is symmetric. Pupils are equal and reactive. Extraocular movements are intact. NECK: Supple. No JVD. No thyromegaly. No submental, submandibular, pre-/po stauricular, occipital or supraclavicular lymphadenopathy. CHEST: Normal chest expansion. No Telemetry. LUNGS: Absence of any rales, rhonchi or any wheezing. CARDIOVASCULAR: Regular. S1 and S2 normal. No appreciable rubs, murmurs or gallops. ABDOMEN: Soft, nontender, and nondistended. There is no rebound, voluntary guarding, or rigidity. : Deferred. No Vallejo. EXTREMITIES: Non-edematous and not cyanotic. No clubbing. Good capillary refill. SKIN: No skin breakdown. Vital Signs (last 8hr) Date Time Temp Pulse Resp B/P (MAP) Pulse Ox O2 Delivery O2 Flow Rate FiO2 03/02/25 08:00 98.4 96 17 99/60 97 Room Air 21 03/02/25 03:55 98.2 98 16 104/61 96 Room Air LABS: Laboratory: Test 03/02/25 09:55 03/02/25 05:58 03/02/25 05:31 03/01/25 10:30 Range/Units Prothrombin Time 12.0 H 9.6-11.6 SEC Prothromb Time International Ratio 1.15 0.85-1.15 Fibrinogen 259 180-350 mg/dL Lactic Acid Level 1.7 0.8-2.5 mmol/L White Blood Count 3.5 L 4.8-10.8 K/uL Red Blood Count 2.45 L 4.00-5.50 MIL/uL Hemoglobin 7.4 L 12.0-16.0 g/dL Hematocrit 22.5 L 36-48 % Mean Corpuscular Volume 91.8 79-99 fL Mean Corpuscular Hemoglobin 30.2 27.0-33.0 pg Mean Corpuscular Hemoglobin Concent 32.9 32.0-36.0 g/dL Red Cell Distribution Width 14.4 11.0-15.5 % Platelet Count 88 L 130-400 K/uL Mean Platelet Volume 9.7 7.5-10.5 fL Immature Granulocyte % (Auto) 0.6 0-1 % Neutrophils (%) (Auto) 73.1 40.0-77.0 % Lymphocytes (%) (Auto) 12.0 L 21.0-51.0 % Monocytes (%) (Auto) 12.0 3.0-13.0 % Eosinophils (%) (Auto) 1.7 0.0-8.0 % Basophils (%) (Auto) 0.6 0.0-5.0 % Neutrophils # (Auto) 2.6 1.8-7.7 K/uL Lymphocytes # (Auto) 0.4 L 1.0-4.8 K/uL Monocytes # (Auto) 0.4 0.1-1.0 K/uL Eosinophils # (Auto) 0.06 0.00-0.70 K/uL Basophils # (Auto) 0.02 0.00-0.20 K/uL Absolute Immature Granulocyte (auto 0.02 0-1 K/uL Nucleated Red Blood Cells 0.0 0.0-0.19 % Sodium Level 138 136-145 mmol/L Potassium Level 3.9 3.5-5.1 mmol/L Chloride Level 104 101-111 mmol/L Carbon Dioxide Level 22 21-32 mmol/L Blood Urea Nitrogen 22 H 7-18 mg/dL Creatinine 1.6 H 0.5-1.0 mg/dL Glomerular Filtration Rate Calc 38 >90 mL/min Random Glucose 88 70-105 mg/dL Total Calcium 9.8 8.5-10.1 mg/dL Total Bilirubin 1.7 #H 0.2-1.0 mg/dL Aspartate Amino Transf (AST/SGOT) 23 10-37 U/L Alanine Aminotransferase (ALT/SGPT) 11 L 12-78 U/L Alkaline Phosphatase 175 H 50-136 U/L Total Protein 6.6 6.0-8.3 g/dL Albumin 2.6 L 3.5-5.0 g/dL Whole Blood Glucose 83 70-110 MG/DL Body Fluid Source ASCITES Body Fluid Volume 5000 mL Body Fluid Color LT YELLOW LT YELLOW Body Fluid Supernatant Appearance CLEAR CLEAR Body Fluid WBC 203 /cu. mm. Body Fluid RBC 0 /cu. mm. Body Fluid Neutrophils 4.0 % Body Fluid Lymphocytes 28 % Body Fluid Macrophages (%) 58 Body Fluid Mesothelial Cells (%) 7 % Body Fluid Other Cells (%) 3 Test 03/01/25 06:35 02/28/25 19:25 02/28/25 18:27 02/28/25 18:17 Range/Units Activated Partial Thromboplast Time 30.5 26.3-35.5 SEC Magnesium Level 1.60 L 1.80-2.40 mg/dL Direct Bilirubin 0.7 H 0.0-0.3 mg/dL Ammonia 65 H 11-32 umol/L Total Creatine Kinase 42 # 21-232 U/L B-Type Natriuretic Peptide 64 0-100 pg/mL Procalcitonin 0.18 0.05-0.5 ng/mL Urine Color LIGHT-YELLOW YELLOW Urine Appearance CLEAR CLEAR Urine pH 5.5 5.0-8.0 Urine Specific Sandoval 1.008 1.001-1.031 Urine Protein NEGATIVE NEGATIVE mg/dL Urine Glucose (UA) NEGATIVE NEGATIVE mg/dL Urine Ketones NEGATIVE NEGATIVE mg/dL Urine Occult Blood LARGE H NEGATIVE Urine Nitrate NEGATIVE NEGATIVE Urine Bilirubin NEGATIVE NEGATIVE mg/dL Urine Urobilinogen 0.2 0.2-1.0 mg/dL Urine Leukocyte Esterase NEGATIVE NEGATIVE Eva/uL Urine RBC 11-25 H 0-1 /HPF Urine WBC 2-5 H 0-1 /HPF Urine Squamous Epithelial Cells RARE 0-2 /HPF Urine Bacteria FEW None Seen /HPF Urine Hyaline Casts 2-5 H 0-1 /LPF /LPF Hemoglobin A1c 6.6 H 4.0-6.0 % Estimated Average Glucose (eAG) 143 H 70-126 mg/dL Influenza Type A Antigen Negative For Type A NEGATIVE Influenza Type B Antigen Negative For Type B NEGATIVE Current Medications Medications (Trade) Dose Ordered Sig/Dora Route PRN Reason Start Time Stop Time Status Last Admin Dose Admin Acetaminophen (TYLenol 325MG TAB) 650 mg Q4H PRN PO MILD PAIN (1-3) 02/28/25 18:00 03/30/25 17:59 Acetaminophen (TYLenol 325MG TAB) 650 mg Q6H PRN PO MILD PAIN (1-3) 02/28/25 18:00 02/28/25 18:32 DC Acetaminophen (TYLenol 325MG TAB) 650 mg Q6H PRN PO TEMPERATURE GREATER THAN 101.5 02/28/25 18:00 03/30/25 17:59 Al Hydroxide/Mg Hydroxide (MAALox PLUS 30ML) 30 ml Q6H PRN PO INDIGESTION 02/28/25 18:00 03/30/25 17:59 Albumin Human 200 ml @ 0 mls/hr AD IV 03/01/25 11:00 03/31/25 10:59 03/01/25 11:33 0 MLS/HR Dextrose (D50w) 50 ml AD PRN IV HYPOGLYCEMIA PROTOCOL 02/28/25 18:00 03/30/25 17:59 Diphenhydramine HCl (BENAdryl INJ) 25 mg Q6H PRN IV SEVERE ITCHING/RASH 02/28/25 18:00 03/30/25 17:59 Famotidine (Pepcid 20mg Vial) 20 mg DAILY PRN IV NAUSEA/VOMITING 02/28/25 18:00 03/30/25 17:59 Glucagon (Glucagon 1mg Kit) 1 mg AD PRN IM HYPOGLYCEMIA PROTOCOL 02/28/25 18:00 03/30/25 17:59 Guaifenesin/ Dextromethorphan (RobiTUSSin DM 200/20MG 10ML) 10 ml Q4H PRN PO COUGH 02/28/25 18:00 03/30/25 17:59 Heparin Sodium (Porcine) (HEParin 5,000 UNIT VIAL) 5,000 unit BID SQ 02/28/25 21:00 03/30/25 20:59 Hold Home Med (Home Medication) (Zinc Amino Acid Margie... DAILY PO 03/02/25 09:00 04/01/25 08:59 Insulin Human Regular (humuLIN R 100 UNIT/ML 3ML) INSULIN SLIDING SCAL... ACHS SQ 02/28/25 21:00 03/30/25 20:59 Ketorolac Tromethamine (toRADol) 15 mg Q8H PRN IV MODERATE PAIN (4-6) 02/28/25 18:00 02/28/25 18:35 DC Lactulose (Constulose 20gm/ 30ml Udcup) 20 gm BID PRN PO CONSTIPATION 02/28/25 18:00 03/30/25 17:59 Magnesium Sulfate 50 ml @ 0 mls/hr PROTOCOL PRN IV OTHER [SEE ORDER COMMENTS] 02/28/25 18:00 03/30/25 17:59 03/02/25 02:22 25 MLS/HR Miscellaneous Medication (Lactulose (Constulose)) 30 ml Q8H PO 03/01/25 17:00 03/01/25 16:55 DC Morphine Sulfate (morPHINE 2MG SYG) 1 mg Q4H PRN IVP SEVERE PAIN (7-10) 02/28/25 18:00 03/07/25 17:59 Nitroglycerin (Nitrostat) 0.4 mg PROTOCOL PRN SL CHEST PAIN 02/28/25 18:00 03/30/25 17:59 Ondansetron HCl (zoFRAN 4MG INJ) 4 mg Q6H PRN IV NAUSEA/VOMITING 02/28/25 18:00 03/30/25 17:59 Potassium Chloride 100 ml @ 100 mls/hr AD PRN IV POTASSIUM PROTOCOL 02/28/25 18:00 03/30/25 17:59 Potassium Chloride (K-Dur 10meq Sr Tab) 10 meq AD PRN PO POTASSIUM PROTOCOL 03/01/25 08:30 03/30/25 17:59 Potassium Chloride (K-Dur/Klor-Con 20meq) 10 meq AD PRN PO POTASSIUM PROTOCOL 02/28/25 18:00 03/01/25 08:14 DC Potassium Chloride (KCl 10% Elixir 20meq/15ml) 10 meq AD PRN PO POTASSIUM PROTOCOL 02/28/25 18:00 03/30/25 17:59 Spironolactone (Aldactone 25mg) 50 mg DAILY PO 03/02/25 09:00 04/01/25 08:59 Vancomycin HCl (Vancomycin 750mg) 750 mg Q24H IVPB 03/01/25 16:00 03/11/25 15:59 03/01/25 16:46 750 MG Vancomycin HCl (Vancomycin Protocol) 1 each AD IV 02/28/25 20:00 03/14/25 19:59 Vitamin B Complex (Vitamin B-12) 1,000 mcg DAILY PO 03/02/25 09:00 04/01/25 08:59 Zolpidem Tartrate (AmbIEN) 5 mg HS PRN PO INSOMNIA 02/28/25 18:00 03/30/25 17:59 03/01/25 00:29 5 MG Zolpidem Tartrate (AmbIEN) 10 mg HS PO 03/01/25 00:00 03/01/25 00:25 DC DIAGNOSTICS / RADIOLOGY: [address] [place] [id number] IMAGING REPORT Signed PATIENT: SINGH DREW MR#: [id number] : 1970 SEX: F AGE: 54 LOCATION: [facility] ORDER 1549 STATUS: ADM IN REPORT#: [id number] SERVICE 0800 REASON: ascities ORDERING PHYSICIAN: SHAY LOZOYA NP PROCEDURE: PARA ABD - US ABDOMINAL PARACENTESIS IR ULTRASOUND GUIDED PARACENTESIS: INDICATION: Ascites TECHNIQUE: Informed consent was obtained. Timeout performed. All elements of maximal sterile barrier technique, including hand hygiene and cutaneous antisepsis were used. Patient was placed supine. Left lower quadrant was prepped and draped in sterile fashion. Local anesthesia was applied. Then, under ultrasound guidance, a 5F centesis needle was advanced through the abdominal wall and into a pocket of fluid in the peritoneum. It yielded 5 L of fluid. The catheter was removed and sterile dressing applied. Blood pressure monitoring was performed during the procedure. Complications: None Blood loss: <5 mL. IMPRESSION: Successful ultrasound guided paracentesis. DICTATED BY: NO FLORES MD DATE: 03/01/25 1256 ELECTRONICALLY SIGNED BY: NO FLORES MD DATE: 03/01/25 9118 ASSESSMENT: Suspected spontaneous bacterial peritonitis (SBP) s/p PMN cells greater than 324 Liver cirrhosis Anemia secondary to liver cirrhosis Thrombocytopenia Ascites History of right lower pole renal mass measuring 6.4 by 5.2 Cm by evidence of CT abdomen and pelvis POA Diabetes mellitus type 2 with hyperglycemia Hypoalbuminemia Protein calorie malnutrition Chronic problem list: Anemia, asthma, DM type 2, GERD, hypertension, liver disease PLAN: Suspected spontaneous bacterial peritonitis: -Continue antibiotic therapy: Rocephin and vancomycin -Follow Gastroenterology recommendations -Abdominal ultrasound: moderate ascites and splenomegaly. -Currently NPO. Advance diet per GI recommendations. -Paracentesis yesterday: 5L removed. Fluid sent for cultures. -Obtain hepatitis panel. -Replace electrolytes as needed. CHICO MCARTHUR MD March 02, 2025 10:48
--- NOTE | 2025-03-02 11:33 | PN ---
GASTROENTEROLOGY PROGRESS NOTE Date of Visit: March 02, 2025 Time of Visit: 11:31 Events / Notes: [ ] Review of Systems: CONSTITUTIONAL: No malaise or change in sensation of wellbeing. ENMT: No rhinorrhea, otorrhea, sinus pain, ear ache. CARDIOVASCULAR: No angina, palpitations, orthopnea or paroxysmal dyspnea. RESPIRATORY: No SOB. GASTROINTESTINAL: No abdominal pain, nausea, vomiting, diarrhea, hematemesis, melena or change in the patient's habitual bowel movements consistency/number. GENITOURINARY: No dysuria, hematuria or change in bladder continence. MUSCULOSKELETAL: No new muscle pain or decrease in muscular strength. No new joint swelling, redness or tenderness. SKIN: No new rash. Physical Exam: GEN: Awake, alert, oriented in person, time and place, and in no acute distress. HEENT: No sinus tenderness. Tympanic membranes were not examined. No rhinorrhea. Oral pharyngeal mucosa is pink, moist and within normal limits. Neck is supple with no cervical lymphadenopathy, thyromegaly or JVD. CHEST: Inspection, palpation and percussion of the chest were unremarkable. Lung auscultation revealed normal breath sounds bilaterally. CARDIAC: PMI is within normal limits. Heart sounds are regular. Normal S1, S2. No gallop or murmur. ABD: Soft, non-tender and not distended. No peritoneal signs on palpation. No organomegaly. Normal bowel sounds. EXT: No cyanosis or clubbing. No edema. SKIN: Intact. No rashes. JOINTS: No evidence of synovitis or acute arthritis. NEURO: Alert and oriented to name, place and person. Cranial nerve examination is unremarkable. No focal motor deficits. Normal speech. Gait is normal. Strength is normal. Vital Signs (last 8hr) Date Time Temp Pulse Resp B/P (MAP) Pulse Ox O2 Delivery O2 Flow Rate FiO2 03/02/25 08:00 97 Room Air* 0 21 03/02/25 08:00 98.4 96 17 99/60 97 Room Air 21 03/02/25 03:55 98.2 98 16 104/61 96 Room Air Laboratory: [ ] Laboratory: Test 03/02/25 11:20 03/02/25 09:55 03/02/25 05:58 03/01/25 10:30 Range/Units Whole Blood Glucose 86 70-110 MG/DL Prothrombin Time 12.0 H 9.6-11.6 SEC Prothromb Time International Ratio 1.15 0.85-1.15 Fibrinogen 259 180-350 mg/dL Lactic Acid Level 1.7 0.8-2.5 mmol/L Iron Level 39 #L 50-170 mcg/dL Total Iron Binding Capacity 142 L 250-450 mcg/dL Percent Iron Saturation 27.4 22-44 % White Blood Count 3.5 L 4.8-10.8 K/uL Red Blood Count 2.45 L 4.00-5.50 MIL/uL Hemoglobin 7.4 L 12.0-16.0 g/dL Hematocrit 22.5 L 36-48 % Mean Corpuscular Volume 91.8 79-99 fL Mean Corpuscular Hemoglobin 30.2 27.0-33.0 pg Mean Corpuscular Hemoglobin Concent 32.9 32.0-36.0 g/dL Red Cell Distribution Width 14.4 11.0-15.5 % Platelet Count 88 L 130-400 K/uL Mean Platelet Volume 9.7 7.5-10.5 fL Immature Granulocyte % (Auto) 0.6 0-1 % Neutrophils (%) (Auto) 73.1 40.0-77.0 % Lymphocytes (%) (Auto) 12.0 L 21.0-51.0 % Monocytes (%) (Auto) 12.0 3.0-13.0 % Eosinophils (%) (Auto) 1.7 0.0-8.0 % Basophils (%) (Auto) 0.6 0.0-5.0 % Neutrophils # (Auto) 2.6 1.8-7.7 K/uL Lymphocytes # (Auto) 0.4 L 1.0-4.8 K/uL Monocytes # (Auto) 0.4 0.1-1.0 K/uL Eosinophils # (Auto) 0.06 0.00-0.70 K/uL Basophils # (Auto) 0.02 0.00-0.20 K/uL Absolute Immature Granulocyte (auto 0.02 0-1 K/uL Nucleated Red Blood Cells 0.0 0.0-0.19 % Sodium Level 138 136-145 mmol/L Potassium Level 3.9 3.5-5.1 mmol/L Chloride Level 104 101-111 mmol/L Carbon Dioxide Level 22 21-32 mmol/L Blood Urea Nitrogen 22 H 7-18 mg/dL Creatinine 1.6 H 0.5-1.0 mg/dL Glomerular Filtration Rate Calc 38 >90 mL/min Random Glucose 88 70-105 mg/dL Total Calcium 9.8 8.5-10.1 mg/dL Total Bilirubin 1.7 #H 0.2-1.0 mg/dL Aspartate Amino Transf (AST/SGOT) 23 10-37 U/L Alanine Aminotransferase (ALT/SGPT) 11 L 12-78 U/L Alkaline Phosphatase 175 H 50-136 U/L Total Protein 6.6 6.0-8.3 g/dL Albumin 2.6 L 3.5-5.0 g/dL Body Fluid Source ASCITES Body Fluid Volume 5000 mL Body Fluid Color LT YELLOW LT YELLOW Body Fluid Supernatant Appearance CLEAR CLEAR Body Fluid WBC 203 /cu. mm. Body Fluid RBC 0 /cu. mm. Body Fluid Neutrophils 4.0 % Body Fluid Lymphocytes 28 % Body Fluid Macrophages (%) 58 Body Fluid Mesothelial Cells (%) 7 % Body Fluid Other Cells (%) 3 Test 03/01/25 06:35 02/28/25 19:25 02/28/25 18:27 02/28/25 18:17 Range/Units Activated Partial Thromboplast Time 30.5 26.3-35.5 SEC Magnesium Level 1.60 L 1.80-2.40 mg/dL Direct Bilirubin 0.7 H 0.0-0.3 mg/dL Ammonia 65 H 11-32 umol/L Total Creatine Kinase 42 # 21-232 U/L B-Type Natriuretic Peptide 64 0-100 pg/mL Procalcitonin 0.18 0.05-0.5 ng/mL Urine Color LIGHT-YELLOW YELLOW Urine Appearance CLEAR CLEAR Urine pH 5.5 5.0-8.0 Urine Specific [place] 1.008 1.001-1.031 Urine Protein NEGATIVE NEGATIVE mg/dL Urine Glucose (UA) NEGATIVE NEGATIVE mg/dL Urine Ketones NEGATIVE NEGATIVE mg/dL Urine Occult Blood LARGE H NEGATIVE Urine Nitrate NEGATIVE NEGATIVE Urine Bilirubin NEGATIVE NEGATIVE mg/dL Urine Urobilinogen 0.2 0.2-1.0 mg/dL Urine Leukocyte Esterase NEGATIVE NEGATIVE Eva/uL Urine RBC 11-25 H 0-1 /HPF Urine WBC 2-5 H 0-1 /HPF Urine Squamous Epithelial Cells RARE 0-2 /HPF Urine Bacteria FEW None Seen /HPF Urine Hyaline Casts 2-5 H 0-1 /LPF /LPF Hemoglobin A1c 6.6 H 4.0-6.0 % Estimated Average Glucose (eAG) 143 H 70-126 mg/dL Influenza Type A Antigen Negative For Type A NEGATIVE Influenza Type B Antigen Negative For Type B NEGATIVE Current Medications Medications (Trade) Dose Ordered Sig/Dora Route PRN Reason Start Time Stop Time Status Last Admin Dose Admin Acetaminophen (TYLenol 325MG TAB) 650 mg Q4H PRN PO MILD PAIN (1-3) 02/28/25 18:00 03/30/25 17:59 Acetaminophen (TYLenol 325MG TAB) 650 mg Q6H PRN PO MILD PAIN (1-3) 02/28/25 18:00 02/28/25 18:32 DC Acetaminophen (TYLenol 325MG TAB) 650 mg Q6H PRN PO TEMPERATURE GREATER THAN 101.5 02/28/25 18:00 03/30/25 17:59 Al Hydroxide/Mg Hydroxide (MAALox PLUS 30ML) 30 ml Q6H PRN PO INDIGESTION 02/28/25 18:00 03/30/25 17:59 Albumin Human 200 ml @ 0 mls/hr AD IV 03/01/25 11:00 03/31/25 10:59 03/01/25 11:33 0 MLS/HR Dextrose (D50w) 50 ml AD PRN IV HYPOGLYCEMIA PROTOCOL 02/28/25 18:00 03/30/25 17:59 Diphenhydramine HCl (BENAdryl INJ) 25 mg Q6H PRN IV SEVERE ITCHING/RASH 02/28/25 18:00 03/30/25 17:59 Famotidine (Pepcid 20mg Vial) 20 mg DAILY PRN IV NAUSEA/VOMITING 02/28/25 18:00 03/30/25 17:59 Glucagon (Glucagon 1mg Kit) 1 mg AD PRN IM HYPOGLYCEMIA PROTOCOL 02/28/25 18:00 03/30/25 17:59 Guaifenesin/ Dextromethorphan (RobiTUSSin DM 200/20MG 10ML) 10 ml Q4H PRN PO COUGH 02/28/25 18:00 03/30/25 17:59 Heparin Sodium (Porcine) (HEParin 5,000 UNIT VIAL) 5,000 unit BID SQ 02/28/25 21:00 03/30/25 20:59 Hold Home Med (Home Medication) (Zinc Amino Acid Margie... DAILY PO 03/02/25 09:00 04/01/25 08:59 Insulin Human Regular (humuLIN R 100 UNIT/ML 3ML) INSULIN SLIDING SCAL... ACHS SQ 02/28/25 21:00 03/30/25 20:59 Ketorolac Tromethamine (toRADol) 15 mg Q8H PRN IV MODERATE PAIN (4-6) 02/28/25 18:00 02/28/25 18:35 DC Lactulose (Constulose 20gm/ 30ml Udcup) 20 gm BID PRN PO CONSTIPATION 02/28/25 18:00 03/30/25 17:59 Magnesium Sulfate 50 ml @ 0 mls/hr PROTOCOL PRN IV OTHER [SEE ORDER COMMENTS] 02/28/25 18:00 03/30/25 17:59 03/02/25 02:22 25 MLS/HR Miscellaneous Medication (Lactulose (Constulose)) 30 ml Q8H PO 03/01/25 17:00 03/01/25 16:55 DC Morphine Sulfate (morPHINE 2MG SYG) 1 mg Q4H PRN IVP SEVERE PAIN (7-10) 02/28/25 18:00 03/07/25 17:59 Nitroglycerin (Nitrostat) 0.4 mg PROTOCOL PRN SL CHEST PAIN 02/28/25 18:00 03/30/25 17:59 Ondansetron HCl (zoFRAN 4MG INJ) 4 mg Q6H PRN IV NAUSEA/VOMITING 02/28/25 18:00 03/30/25 17:59 Potassium Chloride 100 ml @ 100 mls/hr AD PRN IV POTASSIUM PROTOCOL 02/28/25 18:00 03/30/25 17:59 Potassium Chloride (K-Dur 10meq Sr Tab) 10 meq AD PRN PO POTASSIUM PROTOCOL 03/01/25 08:30 03/30/25 17:59 Potassium Chloride (K-Dur/Klor-Con 20meq) 10 meq AD PRN PO POTASSIUM PROTOCOL 02/28/25 18:00 03/01/25 08:14 DC Potassium Chloride (KCl 10% Elixir 20meq/15ml) 10 meq AD PRN PO POTASSIUM PROTOCOL 02/28/25 18:00 03/30/25 17:59 Spironolactone (Aldactone 25mg) 50 mg DAILY PO 03/02/25 09:00 04/01/25 08:59 Vancomycin HCl (Vancomycin 750mg) 750 mg Q24H IVPB 03/01/25 16:00 03/11/25 15:59 03/01/25 16:46 750 MG Vancomycin HCl (Vancomycin Protocol) 1 each AD IV 02/28/25 20:00 03/14/25 19:59 Vitamin B Complex (Vitamin B-12) 1,000 mcg DAILY PO 03/02/25 09:00 04/01/25 08:59 Zolpidem Tartrate (AmbIEN) 5 mg HS PRN PO INSOMNIA 02/28/25 18:00 03/30/25 17:59 03/01/25 00:29 5 MG Zolpidem Tartrate (AmbIEN) 10 mg HS PO 03/01/25 00:00 03/01/25 00:25 DC Diagnostics / Radiology: [COPY/PASTE HERE IF NO REPORTS PLEASE DELETE SECTION] Assessment: Ascites Decompensated Cirrhosis DM Plan: Obtain fluid analysis Continue GI prophylaxis Advance diet as tolerated Avoid NSAIDs Antireflux measures Monitor H&H and transfuse as needed Call with questions, concerns or change in clinical status Patient to follow-up at clinic post discharge Thank you for this consult CANDY LEBLANC [employer]MENT CLERK March 02, 2025 11:33
[2025-03-02] MEDS: ALBUMIN (HUMAN) 5% 250 ML IV SCH (14:05)
[2025-03-03] VITALS (25 sets, daily range): BP systolic 84–127; BP diastolic 42–80; PULSE 80–102; RESP 14–19; TEMP 97–98.8; O2SAT 94–97
[2025-03-03 05:41] LABS: BASOPHILS # (AUTO) 0.02 K/uL (0.00-0.20); BASOPHILS % (AUTO) 0.7 % (0.0-5.0); EOSINOPHILS # (AUTO) 0.08 K/uL (0.00-0.70); EOSINOPHILS % (AUTO) 2.6 % (0.0-8.0); HEMATOCRIT 21.2 % (36-48); IMMATURE GRANULOCYTE ABSOLUTE 0.01 K/uL (0-1); LYMPHOCYTES # (AUTO) 0.5 K/uL (1.0-4.8); LYMPHOCYTES % (AUTO) 15.5 % (21.0-51.0); MEAN CORPUSCULAR HEMOGLOBIN 30.7 pg (27.0-33.0); MONOCYTES # (AUTO) 0.5 K/uL (0.1-1.0); MONOCYTES % (AUTO) 14.8 % (3.0-13.0); NEUTROPHILS % (AUTO) 66.1 % (40.0-77.0); PLATELET COUNT (AUTO) 78 K/uL (130-400); RED BLOOD CELL COUNT(AUTO) 2.28 MIL/uL (4.00-5.50); RED CELL DISTRIBUTION WIDTH 14.3 % (11.0-15.5)
[2025-03-03 05:58] LABS: ALBUMIN 2.5 g/dL (3.5-5.0); BILIRUBIN,TOTAL 1.1 mg/dL (0.2-1.0); CREATININE 1.4 mg/dL (0.5-1.0); POTASSIUM 3.7 mmol/L (3.5-5.1); TOTAL PROTEIN, SERUM 6.2 g/dL (6.0-8.3)
[2025-03-03 07:23] LABS: EOSINOPHILS % (MANUAL) 6 % (1-6); LYMPHOCYTES % (MANUAL) 15 % (22-44); MONOCYTES % (MANUAL) 6 % (2-9); SEGMENTED NEUTROPHILS % 73 % (40-70); TOTAL CELLS COUNTED 100
[2025-03-03 07:24] LABS: MAN.DIFF COMMENT-IMPRESSION MANUAL DIFFERENTIAL; PLATELET MORPHOLOGY COMMENT DECREASED; WBC MORPHOLOGY NORMAL
[2025-03-03] MEDS ORDERED: LIDOCAINE HCL 1% 20 ML VIAL ONE (12:24)
[2025-03-03] MEDS ORDERED: proPOFol 10 MG/ML 20ML VIAL IV ONE ×2 (12:24)
[2025-03-03] MEDS: ondanSETRON 4MG INJ IV PRN (13:17)
--- NOTE | 2025-03-03 16:33 | PN ---
[facility] PROGRESS NOTE Date of Service: March 03, 2025 Time of Service: 16:29 SUBJECTIVE: Patient is a 54-year-old female with a history of a cirrhosis of the liver, DM, asthma, anemia, hypertension, and GERD who presented to [facility] ED for evaluation of SBP (spontaneous bacterial peritonitis). The patient was sent from [facility] office after the patient had a PMN cells greater than 324 and was sent here for suspected SBP. The patient stated that she was seen by Dr. Thomas LEVY. The patient denied any fevers, nausea, vomiting. The patient was started on vancomycin and ceftriaxone 1 gram in ED. ED provider request patient be admitted with the diagnosis of thrombocytopenia, normocytic anemia, LOREN. 03/01: Patient was seen this morning at bedside. The patient had a paracentesis this morning, removing 5L of fluid. Ascitic fluid cultures pending. The patient denies chest pain, shortness of breath, nausea, vomiting, fever, and chills. Hepatitis panel will be obtained. We will continue to follow GI recommendations. 03/02: Patient was seen and examined this morning at bedside. The patient had 5L of ascitic fluid removed yesterday during a paracentesis. Paracentesis fluid studies reveal WBC 203, Neutrophils 4.0, RBC 0. On labs this morning, A downward trend of her hemoglobin and platelet count was noted. Hemoglobin is 7.4, down from 7.6, 8.9. Platelet count is 88, down from 99, 139. The patient denies melena, hematemesis, abdominal pain, nausea, vomiting, fever, chills, and palpitations. Patient is still NPO. Ct abdomen/pelvis with IV contrast deferred at this time due to elevated creatinine (1.6) and risk of contrast-induced nephropathy. Iron studies, type and screen, PT/PTT/INR, and lactate ordered to evaluate for bleeding and end-organ perfusion. Nursing staff instructed to notify GI team urgently for evaluation. Will continue to monitor for hemodynamic stability. 03/03: Patient was seen and examined this morning at bedside. The patients hemoglobin dropped today to 7.0. Patient was transfused with 1 unit of PRBC. Patient had an EGD done today, which shows grade 2 esophageal varices, which were completely eradicated and banded. Patient has been advanced to a clear liquid diet today. We will continue to monitor the patient. REVIEW OF SYSTEMS 12-point ROS reviewed with patient. All pertinent positives mentioned above. Otherwise negative, noncontributory, or nonpertinent. PHYSICAL EXAM GENERAL APPEARANCE: The patient is awake, alert, and oriented, in no acute cardiopulmonary distress. NEUROLOGICAL: Cranial nerves II-XII grossly intact. Motor is 5/5 in bilateral upper and lower extremities proximal to distal. No sensory deficits. HEENT: Face is symmetric. Pupils are equal and reactive. Extraocular movements are intact. NECK: Supple. No JVD. No thyromegaly. No submental, submandibular, pre- /postauricular, occipital or supraclavicular lymphadenopathy. CHEST: Normal chest expansion. No Telemetry. LUNGS: Absence of any rales, rhonchi or any wheezing. CARDIOVASCULAR: Regular. S1 and S2 normal. No appreciable rubs, murmurs or gallops. ABDOMEN: Soft, nontender, and nondistended. There is no rebound, voluntary guarding, or rigidity. : Deferred. No [place]. EXTREMITIES: Non-edematous and not cyanotic. No clubbing. Good capillary refill. SKIN: No skin breakdown. Vital Signs (last 8hr) Date Time Temp Pulse Resp B/P (MAP) Pulse Ox O2 Delivery O2 Flow Rate FiO2 03/03/25 16:00 98.1 101 19 127/63 100 Room Air 21 03/03/25 13:40 98.1 85 18 98/42 92 Room Air 03/03/25 13:30 97.0 96 15 104/46 95 Room Air 03/03/25 13:25 96 15 96/50 95 Room Air 03/03/25 13:20 84 17 96/48 95 Room Air 03/03/25 13:15 85 16 96/47 95 Room Air 03/03/25 13:10 94 14 93/44 94 Room Air 03/03/25 13:05 84 14 84/45 97 Room Air 03/03/25 13:00 97.2 91 19 127/63 100 Room Air 21 03/03/25 12:47 Mask 10.0 03/03/25 12:47 Mask 03/03/25 12:00 98.1 101 19 127/63 100 Room Air 21 LABS: Laboratory: Test 03/03/25 15:11 03/03/25 14:56 03/03/25 05:23 03/02/25 09:55 Range/Units Whole Blood Glucose 115 H 70-110 MG/DL Vancomycin Level Trough 13.8 10.0-20.0 UG/ML White Blood Count 3.0 L 4.8-10.8 K/uL Red Blood Count 2.28 L 4.00-5.50 MIL/uL Hemoglobin 7.0 *L 12.0-16.0 g/dL Hematocrit 21.2 L 36-48 % Mean Corpuscular Volume 93.0 79-99 fL Mean Corpuscular Hemoglobin 30.7 27.0-33.0 pg Mean Corpuscular Hemoglobin Concent 33.0 32.0-36.0 g/dL Red Cell Distribution Width 14.3 11.0-15.5 % Platelet Count 78 L 130-400 K/uL Mean Platelet Volume 10.0 7.5-10.5 fL Immature Granulocyte % (Auto) 0.3 0-1 % Neutrophils (%) (Auto) 66.1 40.0-77.0 % Lymphocytes (%) (Auto) 15.5 L 21.0-51.0 % Monocytes (%) (Auto) 14.8 H 3.0-13.0 % Eosinophils (%) (Auto) 2.6 0.0-8.0 % Basophils (%) (Auto) 0.7 0.0-5.0 % Neutrophils # (Auto) 2.0 1.8-7.7 K/uL Lymphocytes # (Auto) 0.5 L 1.0-4.8 K/uL Monocytes # (Auto) 0.5 0.1-1.0 K/uL Eosinophils # (Auto) 0.08 0.00-0.70 K/uL Basophils # (Auto) 0.02 0.00-0.20 K/uL Absolute Immature Granulocyte (auto 0.01 0-1 K/uL Segmented Neutrophils % 73 H 40-70 % Lymphocytes % (Manual) 15 L 22-44 % Monocytes % (Manual) 6 2-9 % Eosinophils % (Manual) 6 1-6 % Nucleated Red Blood Cells 0.0 0.0-0.19 % Differential Comment MANUAL DIFFERENTIAL White Cell Morphology Comment NORMAL Platelet Morphology Comment DECREASED Red Blood Cell Morphology See comments Sodium Level 137 136-145 mmol/L Potassium Level 3.7 3.5-5.1 mmol/L Chloride Level 103 101-111 mmol/L Carbon Dioxide Level 24 21-32 mmol/L Blood Urea Nitrogen 20 H 7-18 mg/dL Creatinine 1.4 H 0.5-1.0 mg/dL Glomerular Filtration Rate Calc 45 >90 mL/min Random Glucose 95 70-105 mg/dL Total Calcium 9.7 8.5-10.1 mg/dL Ferritin 209 H 15-150 ng/mL Total Bilirubin 1.1 #H 0.2-1.0 mg/dL Aspartate Amino Transf (AST/SGOT) 21 10-37 U/L Alanine Aminotransferase (ALT/SGPT) 9 L 12-78 U/L Alkaline Phosphatase 176 H 50-136 U/L Total Protein 6.2 6.0-8.3 g/dL Albumin 2.5 L 3.5-5.0 g/dL Prothrombin Time 12.0 H 9.6-11.6 SEC Prothromb Time International Ratio 1.15 0.85-1.15 Fibrinogen 259 180-350 mg/dL Lactic Acid Level 1.7 0.8-2.5 mmol/L Iron Level 39 #L 50-170 mcg/dL Total Iron Binding Capacity 142 L 250-450 mcg/dL Percent Iron Saturation 27.4 22-44 % Current Medications Medications (Trade) Dose Ordered Sig/Dora Route PRN Reason Start Time Stop Time Status Last Admin Dose Admin Acetaminophen (TYLenol 325MG TAB) 650 mg Q4H PRN PO MILD PAIN (1-3) 02/28/25 18:00 03/30/25 17:59 Acetaminophen (TYLenol 325MG TAB) 650 mg Q6H PRN PO MILD PAIN (1-3) 02/28/25 18:00 02/28/25 18:32 DC Acetaminophen (TYLenol 325MG TAB) 650 mg Q6H PRN PO TEMPERATURE GREATER THAN 101.5 02/28/25 18:00 03/30/25 17:59 Al Hydroxide/Mg Hydroxide (MAALox PLUS 30ML) 30 ml Q6H PRN PO INDIGESTION 02/28/25 18:00 03/30/25 17:59 Albumin Human 200 ml @ 0 mls/hr AD IV 03/01/25 11:00 03/02/25 12:13 DC 03/01/25 11:33 0 MLS/HR Albumin Human 250 ml @ 125 mls/hr AD IV 03/02/25 12:30 03/03/25 06:40 DC 03/02/25 14:05 125 MLS/HR Dextrose (D50w) 50 ml AD PRN IV HYPOGLYCEMIA PROTOCOL 02/28/25 18:00 03/30/25 17:59 Diphenhydramine HCl (BENAdryl INJ) 25 mg Q6H PRN IV SEVERE ITCHING/RASH 02/28/25 18:00 03/30/25 17:59 Famotidine (Pepcid 20mg Vial) 20 mg DAILY PRN IV NAUSEA/VOMITING 02/28/25 18:00 03/30/25 17:59 Glucagon (Glucagon 1mg Kit) 1 mg AD PRN IM HYPOGLYCEMIA PROTOCOL 02/28/25 18:00 03/30/25 17:59 Guaifenesin/ Dextromethorphan (RobiTUSSin DM 200/20MG 10ML) 10 ml Q4H PRN PO COUGH 02/28/25 18:00 03/30/25 17:59 Heparin Sodium (Porcine) (HEParin 5,000 UNIT VIAL) 5,000 unit BID SQ 02/28/25 21:00 03/30/25 20:59 Hold Home Med (Home Medication) (Zinc Amino Acid Margie... DAILY PO 03/02/25 09:00 04/01/25 08:59 Insulin Human Regular (humuLIN R 100 UNIT/ML 3ML) INSULIN SLIDING SCAL... ACHS SQ 02/28/25 21:00 03/30/25 20:59 Ketorolac Tromethamine (toRADol) 15 mg Q8H PRN IV MODERATE PAIN (4-6) 02/28/25 18:00 02/28/25 18:35 DC Lactulose (Constulose 20gm/ 30ml Udcup) 20 gm BID PRN PO CONSTIPATION 02/28/25 18:00 03/30/25 17:59 Magnesium Sulfate 50 ml @ 0 mls/hr PROTOCOL PRN IV OTHER [SEE ORDER COMMENTS] 02/28/25 18:00 03/30/25 17:59 03/02/25 02:22 25 MLS/HR Miscellaneous Medication (Lactulose (Constulose)) 30 ml Q8H PO 03/01/25 17:00 03/01/25 16:55 DC Morphine Sulfate (morPHINE 2MG SYG) 1 mg Q4H PRN IVP SEVERE PAIN (7-10) 02/28/25 18:00 03/07/25 17:59 Nitroglycerin (Nitrostat) 0.4 mg PROTOCOL PRN SL CHEST PAIN 02/28/25 18:00 03/30/25 17:59 Ondansetron HCl (zoFRAN 4MG INJ) 4 mg Q6H PRN IV NAUSEA/VOMITING 02/28/25 18:00 03/30/25 17:59 03/03/25 13:17 4 MG Potassium Chloride 100 ml @ 100 mls/hr AD PRN IV POTASSIUM PROTOCOL 02/28/25 18:00 03/30/25 17:59 Potassium Chloride (K-Dur 10meq Sr Tab) 10 meq AD PRN PO POTASSIUM PROTOCOL 03/01/25 08:30 03/30/25 17:59 Potassium Chloride (K-Dur/Klor-Con 20meq) 10 meq AD PRN PO POTASSIUM PROTOCOL 02/28/25 18:00 03/01/25 08:14 DC Potassium Chloride (KCl 10% Elixir 20meq/15ml) 10 meq AD PRN PO POTASSIUM PROTOCOL 02/28/25 18:00 03/30/25 17:59 Spironolactone (Aldactone 25mg) 50 mg DAILY PO 03/02/25 09:00 04/01/25 08:59 Vancomycin HCl (Vancomycin 750mg) 750 mg Q24H IVPB 03/01/25 16:00 03/11/25 15:59 03/03/25 15:58 750 MG Vancomycin HCl (Vancomycin Protocol) 1 each AD IV 02/28/25 20:00 03/14/25 19:59 Vitamin B Complex (Vitamin B-12) 1,000 mcg DAILY PO 03/02/25 09:00 04/01/25 08:59 Zolpidem Tartrate (AmbIEN) 5 mg HS PRN PO INSOMNIA 02/28/25 18:00 03/30/25 17:59 03/01/25 00:29 5 MG Zolpidem Tartrate (AmbIEN) 10 mg HS PO 03/01/25 00:00 03/01/25 00:25 DC DIAGNOSTICS / RADIOLOGY: [ ] ASSESSMENT: Suspected spontaneous bacterial peritonitis (SBP) s/p PMN cells greater than 324 Liver cirrhosis Anemia secondary to liver cirrhosis Thrombocytopenia Ascites History of right lower pole renal mass measuring 6.4 by 5.2 Cm by evidence of CT abdomen and pelvis POA Diabetes mellitus type 2 with hyperglycemia Hypoalbuminemia Protein calorie malnutrition Chronic problem list: Anemia, asthma, DM type 2, GERD, hypertension, liver disease PLAN: Suspected spontaneous bacterial peritonitis: -Continue antibiotic therapy: Rocephin and vancomycin -Follow Gastroenterology recommendations -Abdominal ultrasound: moderate ascites and splenomegaly. -Currently NPO. Advance diet per GI recommendations. -Paracentesis yesterday: 5L removed. Fluid sent for cultures. -Obtain hepatitis panel. -Replace electrolytes as needed. -Clear liquid diet CHICO MCARTHUR MD March 03, 2025 16:33
[2025-03-03 16:47] LABS: HEMATOCRIT 26.6 % (36-48)
[2025-03-04] VITALS: BP 116/68; PULSE 97; RESP 18; TEMP 98.3
[2025-03-04 04:30] VITALS: BP 117/63; PULSE 97; RESP 17; TEMP 97.8
[2025-03-04 08:00] VITALS: BP 113/60; PULSE 95; RESP 19; TEMP 97.9; O2SAT 99
--- NOTE | 2025-03-04 08:13 | PN ---
GASTROENTEROLOGY PROGRESS NOTE Date of Visit: March 04, 2025 Time of Visit: 08:12 Events / Notes: [This is a 54-year-old female who is known to services with past medical history of cirrhosis, diabetes, asthma, anemia, hypertension, GERD. She was directed to the ER by our office due to concern for SBP. She had abdominal distention and imaging revealing ascites. She is scheduled for paracentesis. 03/04 s/p EGD Review of Systems: CONSTITUTIONAL: No malaise or change in sensation of wellbeing. ENMT: No rhinorrhea, otorrhea, sinus pain, ear ache. CARDIOVASCULAR: No angina, palpitations, orthopnea or paroxysmal dyspnea. RESPIRATORY: No SOB. GASTROINTESTINAL: No abdominal pain, nausea, vomiting, diarrhea, hematemesis, melena or change in the patient's habitual bowel movements consistency/number. GENITOURINARY: No dysuria, hematuria or change in bladder continence. MUSCULOSKELETAL: No new muscle pain or decrease in muscular strength. No new joint swelling, redness or tenderness. SKIN: No new rash. Physical Exam: GEN: Awake, alert, oriented in person, time and place, and in no acute distress. HEENT: No sinus tenderness. Tympanic membranes were not examined. No rhinorrhea. Oral pharyngeal mucosa is pink, moist and within normal limits. Neck is supple with no cervical lymphadenopathy, thyromegaly or JVD. CHEST: Inspection, palpation and percussion of the chest were unremarkable. Lung auscultation revealed normal breath sounds bilaterally. CARDIAC: PMI is within normal limits. Heart sounds are regular. Normal S1, S2. No gallop or murmur. ABD: Soft, non-tender and not distended. No peritoneal signs on palpation. No or ganomegaly. Normal bowel sounds. EXT: No cyanosis or clubbing. No edema. SKIN: Intact. No rashes. JOINTS: No evidence of synovitis or acute arthritis. NEURO: Alert and oriented to name, place and person. Cranial nerve examination is unremarkable. No focal motor deficits. Normal speech. Gait is normal. Strength is normal. Vital Signs (last 8hr) Date Time Temp Pulse Resp B/P (MAP) Pulse Ox O2 Delivery O2 Flow Rate FiO2 03/04/25 08:00 97.9 95 19 113/60 99 Room Air 03/04/25 04:30 97.9 97 17 117/63 99 Room Air Laboratory: [ ] Laboratory: Test 03/04/25 05:29 03/03/25 16:40 03/03/25 14:56 03/03/25 05:23 Range/Units Whole Blood Glucose 103 70-110 MG/DL Hemoglobin 8.7 #L 12.0-16.0 g/dL Hematocrit 26.6 #L 36-48 % Vancomycin Level Trough 13.8 10.0-20.0 UG/ML White Blood Count 3.0 L 4.8-10.8 K/uL Red Blood Count 2.28 L 4.00-5.50 MIL/uL Mean Corpuscular Volume 93.0 79-99 fL Mean Corpuscular Hemoglobin 30.7 27.0-33.0 pg Mean Corpuscular Hemoglobin Concent 33.0 32.0-36.0 g/dL Red Cell Distribution Width 14.3 11.0-15.5 % Platelet Count 78 L 130-400 K/uL Mean Platelet Volume 10.0 7.5-10.5 fL Immature Granulocyte % (Auto) 0.3 0-1 % Neutrophils (%) (Auto) 66.1 40.0-77.0 % Lymphocytes (%) (Auto) 15.5 L 21.0-51.0 % Monocytes (%) (Auto) 14.8 H 3.0-13.0 % Eosinophils (%) (Auto) 2.6 0.0-8.0 % Basophils (%) (Auto) 0.7 0.0-5.0 % Neutrophils # (Auto) 2.0 1.8-7.7 K/uL Lymphocytes # (Auto) 0.5 L 1.0-4.8 K/uL Monocytes # (Auto) 0.5 0.1-1.0 K/uL Eosinophils # (Auto) 0.08 0.00-0.70 K/uL Basophils # (Auto) 0.02 0.00-0.20 K/uL Absolute Immature Granulocyte (auto 0.01 0-1 K/uL Segmented Neutrophils % 73 H 40-70 % Lymphocytes % (Manual) 15 L 22-44 % Monocytes % (Manual) 6 2-9 % Eosinophils % (Manual) 6 1-6 % Nucleated Red Blood Cells 0.0 0.0-0.19 % Differential Comment MANUAL DIFFERENTIAL White Cell Morphology Comment NORMAL Platelet Morphology Comment DECREASED Red Blood Cell Morphology See comments Sodium Level 137 136-145 mmol/L Potassium Level 3.7 3.5-5.1 mmol/L Chloride Level 103 101-111 mmol/L Carbon Dioxide Level 24 21-32 mmol/L Blood Urea Nitrogen 20 H 7-18 mg/dL Creatinine 1.4 H 0.5-1.0 mg/dL Glomerular Filtration Rate Calc 45 >90 mL/min Random Glucose 95 70-105 mg/dL Total Calcium 9.7 8.5-10.1 mg/dL Ferritin 209 H 15-150 ng/mL Total Bilirubin 1.1 #H 0.2-1.0 mg/dL Aspartate Amino Transf (AST/SGOT) 21 10-37 U/L Alanine Aminotransferase (ALT/SGPT) 9 L 12-78 U/L Alkaline Phosphatase 176 H 50-136 U/L Total Protein 6.2 6.0-8.3 g/dL Albumin 2.5 L 3.5-5.0 g/dL Test 03/02/25 09:55 Range/Units Prothrombin Time 12.0 H 9.6-11.6 SEC Prothromb Time International Ratio 1.15 0.85-1.15 Fibrinogen 259 180-350 mg/dL Lactic Acid Level 1.7 0.8-2.5 mmol/L Iron Level 39 #L 50-170 mcg/dL Total Iron Binding Capacity 142 L 250-450 mcg/dL Percent Iron Saturation 27.4 22-44 % Current Medications Medications (Trade) Dose Ordered Sig/Dora Route PRN Reason Start Time Stop Time Status Last Admin Dose Admin Acetaminophen (TYLenol 325MG TAB) 650 mg Q4H PRN PO MILD PAIN (1-3) 02/28/25 18:00 03/30/25 17:59 Acetaminophen (TYLenol 325MG TAB) 650 mg Q6H PRN PO MILD PAIN (1-3) 02/28/25 18:00 02/28/25 18:32 DC Acetaminophen (TYLenol 325MG TAB) 650 mg Q6H PRN PO TEMPERATURE GREATER THAN 101.5 02/28/25 18:00 03/30/25 17:59 Al Hydroxide/Mg Hydroxide (MAALox PLUS 30ML) 30 ml Q6H PRN PO INDIGESTION 02/28/25 18:00 03/30/25 17:59 Albumin Human 200 ml @ 0 mls/hr AD IV 03/01/25 11:00 5/7/25 12:13 DC 03/01/25 11:33 0 MLS/HR Albumin Human 250 ml @ 125 mls/hr AD IV 03/02/25 12:30 03/03/25 06:40 DC 03/02/25 14:05 125 MLS/HR Dextrose (D50w) 50 ml AD PRN IV HYPOGLYCEMIA PROTOCOL 02/28/25 18:00 03/30/25 17:59 Diphenhydramine HCl (BENAdryl INJ) 25 mg Q6H PRN IV SEVERE ITCHING/RASH 02/28/25 18:00 03/30/25 17:59 Famotidine (Pepcid 20mg Vial) 20 mg DAILY PRN IV NAUSEA/VOMITING 02/28/25 18:00 03/30/25 17:59 Glucagon (Glucagon 1mg Kit) 1 mg AD PRN IM HYPOGLYCEMIA PROTOCOL 02/28/25 18:00 03/30/25 17:59 Guaifenesin/ Dextromethorphan (RobiTUSSin DM 200/20MG 10ML) 10 ml Q4H PRN PO COUGH 02/28/25 18:00 03/30/25 17:59 Heparin Sodium (Porcine) (HEParin 5,000 UNIT VIAL) 5,000 unit BID SQ 02/28/25 21:00 03/30/25 20:59 Hold Home Med (Home Medication) (Zinc Amino Acid Margie... DAILY PO 03/02/25 09:00 04/01/25 08:59 Insulin Human Regular (humuLIN R 100 UNIT/ML 3ML) INSULIN SLIDING SCAL... ACHS SQ 02/28/25 21:00 03/30/25 20:59 Ketorolac Tromethamine (toRADol) 15 mg Q8H PRN IV MODERATE PAIN (4-6) 02/28/25 18:00 02/28/25 18:35 DC Lactulose (Constulose 20gm/ 30ml Udcup) 20 gm BID PRN PO CONSTIPATION 02/28/25 18:00 03/30/25 17:59 Magnesium Sulfate 50 ml @ 0 mls/hr PROTOCOL PRN IV OTHER [SEE ORDER COMMENTS] 02/28/25 18:00 03/30/25 17:59 03/02/25 02:22 25 MLS/HR Miscellaneous Medication (Lactulose (Constulose)) 30 ml Q8H PO 03/01/25 17:00 03/01/25 16:55 DC Morphine Sulfate (morPHINE 2MG SYG) 1 mg Q4H PRN IVP SEVERE PAIN (7-10) 02/28/25 18:00 03/07/25 17:59 Nitroglycerin (Nitrostat) 0.4 mg PROTOCOL PRN SL CHEST PAIN 02/28/25 18:00 03/30/25 17:59 Ondansetron HCl (zoFRAN 4MG INJ) 4 mg Q6H PRN IV NAUSEA/VOMITING 02/28/25 18:00 03/30/25 17:59 03/03/25 13:17 4 MG Potassium Chloride 100 ml @ 100 mls/hr AD PRN IV POTASSIUM PROTOCOL 02/28/25 18:00 03/30/25 17:59 Potassium Chloride (K-Dur 10meq Sr Tab) 10 meq AD PRN PO POTASSIUM PROTOCOL 03/01/25 08:30 03/30/25 17:59 Potassium Chloride (K-Dur/Klor-Con 20meq) 10 meq AD PRN PO POTASSIUM PROTOCOL 02/28/25 18:00 03/01/25 08:14 DC Potassium Chloride (KCl 10% Elixir 20meq/15ml) 10 meq AD PRN PO POTASSIUM PROTOCOL 02/28/25 18:00 03/30/25 17:59 Spironolactone (Aldactone 25mg) 50 mg DAILY PO 03/02/25 09:00 04/01/25 08:59 Vancomycin HCl (Vancomycin 750mg) 750 mg Q24H IVPB 03/01/25 16:00 03/11/25 15:59 03/03/25 15:58 750 MG Vancomycin HCl (Vancomycin Protocol) 1 each AD IV 02/28/25 20:00 03/14/25 19:59 Vitamin B Complex (Vitamin B-12) 1,000 mcg DAILY PO 03/02/25 09:00 04/01/25 08:59 Zolpidem Tartrate (AmbIEN) 5 mg HS PRN PO INSOMNIA 02/28/25 18:00 03/30/25 17:59 03/01/25 00:29 5 MG Zolpidem Tartrate (AmbIEN) 10 mg HS PO 03/01/25 00:00 03/01/25 00:25 DC Diagnostics / Radiology: [COPY/PASTE HERE IF NO REPORTS PLEASE DELETE SECTION] Assessment: Ascites Decompensated Cirrhosis DM Plan: Soft diet repeat egd in 4 weeks Obtain fluid analysis Continue GI prophylaxis Advance diet as tolerated Avoid NSAIDs Antireflux measures Monitor H&H and transfuse as needed Call with questions, concerns or change in clinical status Patient to follow-up at clinic post discharge Thank you for this consult CANDY LEBLANC [employer] March 04, 2025 08:13
--- NOTE | 2025-03-04 08:51 | PN ---
[facility] PROGRESS NOTE Date of Service: March 04, 2025 Time of Service: 08:50 SUBJECTIVE: Patient is a 54-year-old female with a history of a cirrhosis of the liver, DM, asthma, anemia, hypertension, and GERD who presented to [facility] ED for evaluation of SBP (spontaneous bacterial peritonitis). The patient was sent from [facility] office after the patient had a PMN cells greater than 324 and was sent here for suspected SBP. The patient stated that she was seen by Dr. Thomas LEVY. The patient denied any fevers, nausea, vomiting. The patient was started on vancomycin and ceftriaxone 1 gram in ED. ED provider request patient be admitted with the diagnosis of thrombocytopenia, normocytic anemia, LOREN. 03/01: Patient was seen this morning at bedside. The patient had a paracentesis this morning, removing 5L of fluid. Ascitic fluid cultures pending. The patient denies chest pain, shortness of breath, nausea, vomiting, fever, and chills. Hepatitis panel will be obtained. We will continue to follow GI recommendations. 03/02: Patient was seen and examined this morning at bedside. The patient had 5L of ascitic fluid removed yesterday during a paracentesis. Paracentesis fluid studies reveal WBC 203, Neutrophils 4.0, RBC 0. On labs this morning, A downward trend of her hemoglobin and platelet count was noted. Hemoglobin is 7.4, down from 7.6, 8.9. Platelet count is 88, down from 99, 139. The patient denies melena, hematemesis, abdominal pain, nausea, vomiting, fever, chills, and palpitations. Patient is still NPO. Ct abdomen/pelvis with IV contrast deferred at this time due to elevated creatinine (1.6) and risk of contrast-induced nephropathy. Iron studies, type and screen, PT/PTT/INR, and lactate ordered to evaluate for bleeding and end-organ perfusion. Nursing staff instructed to notify GI team urgently for evaluation. Will continue to monitor for hemodynamic stability. 03/03: Patient was seen and examined this morning at bedside. The patients hemoglobin dropped today to 7.0. Patient was transfused with 1 unit of PRBC. Patient had an EGD done today, which shows grade 2 esophageal varices, which were completely eradicated and banded. Patient has been advanced to a clear liquid diet today. We will continue to monitor the patient. 03/04: Patient was seen and examined this morning at bedside. Patient is s/p EGD. Patient is started on Carafate for GI prophylaxis per GI recommendations. Patients hgb today is 8.7, and hct is 26.6. Patient denies chest pain, shortness of breath, nausea, vomiting, fever, chills, abdominal pain. Ascitic fluid culture preliminary is negative for growth. Patients diet will be advanced to a soft GI diet, as indicated by GI note. Patient will follow up with GI in their clinic within 1 week upon discharge. REVIEW OF SYSTEMS 12-point ROS reviewed with patient. All pertinent positives mentioned above. Otherwise negative, noncontributory, or nonpertinent. PHYSICAL EXAM GENERAL APPEARANCE: The patient is awake, alert, and oriented, in no acute cardiopulmonary distress. NEUROLOGICAL: Cranial nerves II-XII grossly intact. Motor is 5/5 in bilateral upper and lower extremities proximal to distal. No sensory deficits. HEENT: Face is symmetric. Pupils are equal and reactive. Extraocular movements are intact. NECK: Supple. No JVD. No thyromegaly. No submental, submandibular, pre- /postauricular, occipital or supraclavicular lymphadenopathy. CHEST: Normal chest expansion. No Telemetry. LUNGS: Absence of any rales, rhonchi or any wheezing. CARDIOVASCULAR: Regular. S1 and S2 normal. No appreciable rubs, murmurs or gallops. ABDOMEN: Soft, nontender, and nondistended. There is no rebound, voluntary guarding, or rigidity. : Deferred. No [place]. EXTREMITIES: Non-edematous and not cyanotic. No clubbing. Good capillary refill. SKIN: No skin breakdown. Vital Signs (last 8hr) Date Time Temp Pulse Resp B/P (MAP) Pulse Ox O2 Delivery O2 Flow Rate FiO2 03/04/25 08:00 97.9 95 19 113/60 99 Room Air 03/04/25 04:30 97.9 97 17 117/63 99 Room Air LABS: Laboratory: Test 03/04/25 05:29 03/03/25 16:40 03/03/25 14:56 03/03/25 05:23 Range/Units Whole Blood Glucose 103 70-110 MG/DL Hemoglobin 8.7 #L 12.0-16.0 g/dL Hematocrit 26.6 #L 36-48 % Vancomycin Level Trough 13.8 10.0-20.0 UG/ML White Blood Count 3.0 L 4.8-10.8 K/uL Red Blood Count 2.28 L 4.00-5.50 MIL/uL Mean Corpuscular Volume 93.0 79-99 fL Mean Corpuscular Hemoglobin 30.7 27.0-33.0 pg Mean Corpuscular Hemoglobin Concent 33.0 32.0-36.0 g/dL Red Cell Distribution Width 14.3 11.0-15.5 % Platelet Count 78 L 130-400 K/uL Mean Platelet Volume 10.0 7.5-10.5 fL Immature Granulocyte % (Auto) 0.3 0-1 % Neutrophils (%) (Auto) 66.1 40.0-77.0 % Lymphocytes (%) (Auto) 15.5 L 21.0-51.0 % Monocytes (%) (Auto) 14.8 H 3.0-13.0 % Eosinophils (%) (Auto) 2.6 0.0-8.0 % Basophils (%) (Auto) 0.7 0.0-5.0 % Neutrophils # (Auto) 2.0 1.8-7.7 K/uL Lymphocytes # (Auto) 0.5 L 1.0-4.8 K/uL Monocytes # (Auto) 0.5 0.1-1.0 K/uL Eosinophils # (Auto) 0.08 0.00-0.70 K/uL Basophils # (Auto) 0.02 0.00-0.20 K/uL Absolute Immature Granulocyte (auto 0.01 0-1 K/uL Segmented Neutrophils % 73 H 40-70 % Lymphocytes % (Manual) 15 L 22-44 % Monocytes % (Manual) 6 2-9 % Eosinophils % (Manual) 6 1-6 % Nucleated Red Blood Cells 0.0 0.0-0.19 % Differential Comment MANUAL DIFFERENTIAL White Cell Morphology Comment NORMAL Platelet Morphology Comment DECREASED Red Blood Cell Morphology See comments Sodium Level 137 136-145 mmol/L Potassium Level 3.7 3.5-5.1 mmol/L Chloride Level 103 101-111 mmol/L Carbon Dioxide Level 24 21-32 mmol/L Blood Urea Nitrogen 20 H 7-18 mg/dL Creatinine 1.4 H 0.5-1.0 mg/dL Glomerular Filtration Rate Calc 45 >90 mL/min Random Glucose 95 70-105 mg/dL Total Calcium 9.7 8.5-10.1 mg/dL Ferritin 209 H 15-150 ng/mL Total Bilirubin 1.1 #H 0.2-1.0 mg/dL Aspartate Amino Transf (AST/SGOT) 21 10-37 U/L Alanine Aminotransferase (ALT/SGPT) 9 L 12-78 U/L Alkaline Phosphatase 176 H 50-136 U/L Total Protein 6.2 6.0-8.3 g/dL Albumin 2.5 L 3.5-5.0 g/dL Test 03/02/25 09:55 Range/Units Prothrombin Time 12.0 H 9.6-11.6 SEC Prothromb Time International Ratio 1.15 0.85-1.15 Fibrinogen 259 180-350 mg/dL Lactic Acid Level 1.7 0.8-2.5 mmol/L Iron Level 39 #L 50-170 mcg/dL Total Iron Binding Capacity 142 L 250-450 mcg/dL Percent Iron Saturation 27.4 22-44 % Current Medications Medications (Trade) Dose Ordered Sig/Dora Route PRN Reason Start Time Stop Time Status Last Admin Dose Admin Acetaminophen (TYLenol 325MG TAB) 650 mg Q4H PRN PO MILD PAIN (1-3) 02/28/25 18:00 03/30/25 17:59 Acetaminophen (TYLenol 325MG TAB) 650 mg Q6H PRN PO MILD PAIN (1-3) 02/28/25 18:00 02/28/25 18:32 DC Acetaminophen (TYLenol 325MG TAB) 650 mg Q6H PRN PO TEMPERATURE GREATER THAN 101.5 02/28/25 18:00 03/30/25 17:59 Al Hydroxide/Mg Hydroxide (MAALox PLUS 30ML) 30 ml Q6H PRN PO INDIGESTION 02/28/25 18:00 03/30/25 17:59 Albumin Human 200 ml @ 0 mls/hr AD IV 03/01/25 11:00 03/02/25 12:13 DC 03/01/25 11:33 0 MLS/HR Albumin Human 250 ml @ 125 mls/hr AD IV 03/02/25 12:30 03/03/25 06:40 DC 03/02/25 14:05 125 MLS/HR Dextrose (D50w) 50 ml AD PRN IV HYPOGLYCEMIA PROTOCOL 02/28/25 18:00 03/30/25 17:59 Diphenhydramine HCl (BENAdryl INJ) 25 mg Q6H PRN IV SEVERE ITCHING/RASH 02/28/25 18:00 03/30/25 17:59 Famotidine (Pepcid 20mg Vial) 20 mg DAILY PRN IV NAUSEA/VOMITING 02/28/25 18:00 03/30/25 17:59 Glucagon (Glucagon 1mg Kit) 1 mg AD PRN IM HYPOGLYCEMIA PROTOCOL 02/28/25 18:00 03/30/25 17:59 Guaifenesin/ Dextromethorphan (RobiTUSSin DM 200/20MG 10ML) 10 ml Q4H PRN PO COUGH 02/28/25 18:00 03/30/25 17:59 Heparin Sodium (Porcine) (HEParin 5,000 UNIT VIAL) 5,000 unit BID SQ 02/28/25 21:00 03/30/25 20:59 Hold Home Med (Home Medication) (Zinc Amino Acid Margie... DAILY PO 03/02/25 09:00 04/01/25 08:59 Insulin Human Regular (humuLIN R 100 UNIT/ML 3ML) INSULIN SLIDING SCAL... ACHS SQ 02/28/25 21:00 03/30/25 20:59 Ketorolac Tromethamine (toRADol) 15 mg Q8H PRN IV MODERATE PAIN (4-6) 02/28/25 18:00 02/28/25 18:35 DC Lactulose (Constulose 20gm/ 30ml Udcup) 20 gm BID PRN PO CONSTIPATION 02/28/25 18:00 03/30/25 17:59 Magnesium Sulfate 50 ml @ 0 mls/hr PROTOCOL PRN IV OTHER [SEE ORDER COMMENTS] 02/28/25 18:00 03/30/25 17:59 03/02/25 02:22 25 MLS/HR Miscellaneous Medication (Lactulose (Constulose)) 30 ml Q8H PO 03/01/25 17:00 03/01/25 16:55 DC Morphine Sulfate (morPHINE 2MG SYG) 1 mg Q4H PRN IVP SEVERE PAIN (7-10) 02/28/25 18:00 03/07/25 17:59 Nitroglycerin (Nitrostat) 0.4 mg PROTOCOL PRN SL CHEST PAIN 02/28/25 18:00 03/30/25 17:59 Ondansetron HCl (zoFRAN 4MG INJ) 4 mg Q6H PRN IV NAUSEA/VOMITING 02/28/25 18:00 03/30/25 17:59 03/03/25 13:17 4 MG Potassium Chloride 100 ml @ 100 mls/hr AD PRN IV POTASSIUM PROTOCOL 02/28/25 18:00 03/30/25 17:59 Potassium Chloride (K-Dur 10meq Sr Tab) 10 meq AD PRN PO POTASSIUM PROTOCOL 03/01/25 08:30 03/30/25 17:59 Potassium Chloride (K-Dur/Klor-Con 20meq) 10 meq AD PRN PO POTASSIUM PROTOCOL 02/28/25 18:00 03/01/25 08:14 DC Potassium Chloride (KCl 10% Elixir 20meq/15ml) 10 meq AD PRN PO POTASSIUM PROTOCOL 02/28/25 18:00 03/30/25 17:59 Spironolactone (Aldactone 25mg) 50 mg DAILY PO 03/02/25 09:00 04/01/25 08:59 Sucralfate (Carafate) 1 gm TID PO 03/04/25 09:00 04/03/25 08:59 Vancomycin HCl (Vancomycin 750mg) 750 mg Q24H IVPB 03/01/25 16:00 03/11/25 15:59 03/03/25 15:58 750 MG Vancomycin HCl (Vancomycin Protocol) 1 each AD IV 02/28/25 20:00 03/14/25 19:59 Vitamin B Complex (Vitamin B-12) 1,000 mcg DAILY PO 03/02/25 09:00 04/01/25 08:59 Zolpidem Tartrate (AmbIEN) 5 mg HS PRN PO INSOMNIA 02/28/25 18:00 03/30/25 17:59 03/01/25 00:29 5 MG Zolpidem Tartrate (AmbIEN) 10 mg HS PO 03/01/25 00:00 03/01/25 00:25 DC DIAGNOSTICS / RADIOLOGY: [ ] ASSESSMENT: Suspected spontaneous bacterial peritonitis (SBP) s/p PMN cells greater than 324 Liver cirrhosis Anemia secondary to liver cirrhosis Thrombocytopenia Ascites History of right lower pole renal mass measuring 6.4 by 5.2 Cm by evidence of CT abdomen and pelvis POA Diabetes mellitus type 2 with hyperglycemia Hypoalbuminemia Protein calorie malnutrition Chronic problem list: Anemia, asthma, DM type 2, GERD, hypertension, liver di sease PLAN: Suspected spontaneous bacterial peritonitis: -Continue antibiotic therapy: Rocephin and vancomycin -Follow Gastroenterology recommendations -Abdominal ultrasound: moderate ascites and splenomegaly. -Currently soft GI diet. Advance diet per GI recommendations. -Paracentesis; 5L removed. Fluid sent for cultures. Preliminary report negative. -Obtain hepatitis panel. Pending. -Replace electrolytes as needed. -Patient to follow up with GI clinic within 1 week upon discharge. CHICO MCARTHUR MD March 04, 2025 08:51
[2025-03-04] MEDS: SUCRALFATE 1 GM/10 ML PO SCH (09:01)
[2025-03-04 09:51] LABS: BASOPHILS # (AUTO) 0.03 K/uL (0.00-0.20); BASOPHILS % (AUTO) 0.5 % (0.0-5.0); EOSINOPHILS # (AUTO) 0.09 K/uL (0.00-0.70); EOSINOPHILS % (AUTO) 1.6 % (0.0-8.0); HEMATOCRIT 28.9 % (36-48); IMMATURE GRANULOCYTE ABSOLUTE 0.05 K/uL (0-1); LYMPHOCYTES # (AUTO) 0.6 K/uL (1.0-4.8); LYMPHOCYTES % (AUTO) 10.8 % (21.0-51.0); MEAN CORPUSCULAR HEMOGLOBIN 30.3 pg (27.0-33.0); MEAN CORPUSCULAR HGB CONC 33.6 g/dL (32.0-36.0); MEAN CORPUSCULAR VOLUME 90.3 fL (79-99); MONOCYTES # (AUTO) 0.6 K/uL (0.1-1.0); MONOCYTES % (AUTO) 9.9 % (3.0-13.0); NEUTROPHILS # (AUTO) 4.4 K/uL (1.8-7.7); NEUTROPHILS % (AUTO) 76.3 % (40.0-77.0); PLATELET COUNT (AUTO) 103 K/uL (130-400); RED CELL DISTRIBUTION WIDTH 14.5 % (11.0-15.5); WHITE BLOOD COUNT (AUTO) 5.7 K/uL (4.8-10.8)
[2025-03-04 10:05] LABS: CREATININE 1.6 mg/dL (0.5-1.0)
[2025-03-04 10:10] LABS: BILIRUBIN,TOTAL 2.1 mg/dL (0.2-1.0); TOTAL PROTEIN, SERUM 7.5 g/dL (6.0-8.3)
[2025-03-04 11:44] VITALS: BP 113/63; PULSE 100; RESP 18; TEMP 97.9
--- NOTE | 2025-03-04 15:13 | DS ---
Discharge Summary Assessment/Plan: ASSESSMENT: Suspected spontaneous bacterial peritonitis (SBP) s/p PMN cells greater than 324 Liver cirrhosis Anemia secondary to liver cirrhosis Thrombocytopenia Ascites History of right lower pole renal mass measuring 6.4 by 5.2 Cm by evidence of CT abdomen and pelvis POA Diabetes mellitus type 2 with hyperglycemia Hypoalbuminemia Protein calorie malnutrition Chronic problem list: Anemia, asthma, DM type 2, GERD, hypertension, liver disease PLAN: Suspected spontaneous bacterial peritonitis: -Continue antibiotic therapy: Rocephin and vancomycin -Follow Gastroenterology recommendations -Abdominal ultrasound: moderate ascites and splenomegaly. -Currently soft GI diet. Advance diet per GI recommendations. -Paracentesis; 5L removed. Fluid sent for cultures. Preliminary report negative. -Obtain hepatitis panel. Pending. -Replace electrolytes as needed. -Patient to follow up with GI clinic within 1 week upon discharge. Home Medications: Active Scripts Cyanocobalamin (Vitamin B-12) (Vitamin B-12) 1,000 Mcg Tablet, 1000 MCG PO DAILY for 30 Days, #30 TAB Prov:CHLOE SANABRIA NP 12/28/24 Reported Medications Sucralfate (Sucralfate) 1 Gram/10 Ml Oral.susp, 10 ML PO QID 02/28/25 Rifaximin (Xifaxan) 550 Mg Tablet, 1 TAB PO BID 02/28/25 Furosemide (Furosemide) 20 Mg Tablet, 1 TAB PO DAILY 02/28/25 Spironolactone (Spironolactone) 50 Mg Tablet, 1 TAB PO DAILY 02/28/25 Lactulose (Constulose) 10 Gram/15 Ml Solution, 30 ML PO Q8H 02/28/25 Pantoprazole Sodium (Pantoprazole Sodium) 40 Mg Tablet.dr, 1 TAB PO DAILY 02/28/25 Zinc Amino Acid Chelate (Zinc) 50 Mg Tablet, 50 MG PO DAILY, TAB 01/31/25 Propranolol HCl (Propranolol HCl) 10 Mg Tablet, 1 TAB PO BID for 30 Days, #60 TAB 0 Refills 12/28/24 Metformin HCl (Metformin HCl) 1,000 Mg Tablet, 1 TAB PO BID for 30 Days, #60 TAB 0 Refills 12/28/24 Discontinued Scripts [Lactulose 20 Gm/30 Ml Udcup] 20 GM/30 ML SOLUTION No Conflict Check, 20 GM PO q8 hr for 30 Days, #1 BOTTLE 1 Refill Prov:CHLOE SANABRIA NP 12/28/24 CHICO MCARTHUR MD March 04, 2025 15:13
--- NOTE | 2025-03-04 15:42 | DS ---
Discharge Summary Hospital Course Summary: The patient is a 54-year-old female with a past medical history of a cirrhosis of the liver, DM, asthma, anemia, hypertension, and GERD who presented to [facility] ED for evaluation of SBP (spontaneous bacterial peritonitis). The patient was sent from [facility] office after the patient had a PMN cells greater than 324 and was sent here for suspected SBP. The patient stated that she was seen by Dr. Thomas LEVY. The patient was started on vancomycin and ceftriaxone 1 gram in ED. ED provider request patient be admitted with the diagnosis of thrombocytopenia, normocytic anemia, LOREN. The following day, the patient had a paracentesis, removing 5L of ascitic fluid. The ascitic fluid culture was sent, and came back negative. Paracentesis fluid studies reveal WBC 203, Neutrophils 4.0, RBC 0. On labs this morning, A downward trend of her hemoglobin and platelet count was noted. Hemoglobin was 7.4, down from 7.6, 8.9. Platelet count was 88, down from 99, 139. The patient denied melena, hematemesis, abdominal pain, nausea, vomiting, fever, chills, and palpitations. Ct abdomen/pelvis with IV contrast deferred at this time due to elevated creatinine (1.6) and risk of contrast-induced nephropathy. Iron studies, type and screen, PT/PTT/INR, and lactate were ordered to evaluate for bleeding and end-organ perfusion. GI was made aware of the downtrending hemoglobin. GI evaluated the patient, and an EGD was scheduled the next morning. The following morning labs showed a hemoglobin of 7.0. One unit of PRBC was transfused. The patient was sent in for a EGD after her blood transfusion. Her EGD showed grade 2 esophageal varices, which were completely eradicated and banded. The patients diet was advanced to a clear liquid diet. The patient was started on Carafate for GI prophyaxis. Repeat labs showed a hemoglobin of 9.7. The patients diet was advanced to soft GI diet. The patient was deemed medically stable for discharge, and was advised to follow up with GI at their clinic for a repeat EGD in 4 weeks. [employer]ter(s): Gastroenterology Procedure(s): [place] [address] [place] [address] [id number] IMAGING REPORT Signed PATIENT: SINGH DREW#: [id number] : 1970 SEX: F AGE: 54 LOCATION: 3D ORDER [id number] STATUS: ADM IN REPORT#: [id number] SERVICE 0800 REASON: ascities ORDERING PHYSICIAN: SHAY LOZOYA NP PROCEDURE: PARA ABD - US ABDOMINAL PARACENTESIS IR ULTRASOUND GUIDED PARACENTESIS: INDICATION: Ascites TECHNIQUE: Informed consent was obtained. Timeout performed. All elements of maximal sterile barrier technique, including hand hygiene and cutaneous antisepsis were used. Patient was placed supine. Left lower quadrant was prepped and draped in sterile fashion. Local anesthesia was applied. Then, under ultrasound guidance, a 5F centesis needle was advanced through the abdominal wall and into a pocket of fluid in the peritoneum. It yielded 5 L of fluid. The catheter was removed and sterile dressing applied. Blood pressure monitoring was performed during the procedure. Complications: None Blood loss: <5 mL. IMPRESSION: Successful ultrasound guided paracentesis. DICTATED BY: NO FLORES MD DATE: 03/01/25 1256 ELECTRONICALLY SIGNED BY: NO FLORES MD DATE: 03/01/[address] [address] IMAGING REPORT Signed PATIENT: SINGH DREW MR#: [id number] : 1970 SEX: F AGE: 54 LOCATION: 3D ORDER [id number] STATUS: ADM IN REPORT#: [id number] SERVICE 0242 REASON: ascites ORDERING PHYSICIAN: ANTONIA RENEE PROCEDURE: ABD WALL - US ABD LIMITED/ABD WALL Abdominal Limited, ascites scan Clinical Information: ascites Comparison: None Findings: There is a moderate amount of ascites throughout all 4 quadrants. Incidentally, there is splenomegaly. Impression: Moderate ascites. DICTATED BY: NO FLORES MD DATE: 03/01/25 0847 ELECTRONICALLY SIGNED BY: NO FLORES MD DATE: 03/01/25 0950 Assessment/Plan: ASSESSMENT: Suspected spontaneous bacterial peritonitis (SBP)- Ruled out. Anemia secondary to liver cirrhosis Thrombocytopenia Ascites History of right lower pole renal mass measuring 6.4 by 5.2 Cm by evidence of CT abdomen and pelvis POA Diabetes mellitus type 2 with hyperglycemia Hypoalbuminemia Protein calorie malnutrition Chronic problem list: Anemia, asthma, DM type 2, GERD, hypertension, liver disease Discharge Instructions: Follow up appointment: Patient advised to follow up with GI clinic within 1 week upon discharge. Patient advised to follow up with PCP within 1 week upon discharge. Procedures: Paracentesis, EGD. Imaging: reports attached to summary Activity: ad kayce Home medications: continued New medications: n/a Teaching: We reinforced the importance of compliance with follow up appointments and medication compliance Advised patient to follow up with GI and PCP within 1 week upon discharge. Emergency instructions: The patient was instructed to present to the nearest Emergency Department or call 911 should their symptoms return or worsen. Home Medications: Active Scripts Cyanocobalamin (Vitamin B-12) (Vitamin B-12) 1,000 Mcg Tablet, 1000 MCG PO DAILY for 30 Days, #30 TAB Prov:CHLOE SANABRIA CONSULAR OFFICER 12/28/24 Reported Medications Sucralfate (Sucralfate) 1 Gram/10 Ml Oral.susp, 10 ML PO QID 02/28/25 Rifaximin (Xifaxan) 550 Mg Tablet, 1 TAB PO BID 02/28/25 Furosemide (Furosemide) 20 Mg Tablet, 1 TAB PO DAILY 02/28/25 Spironolactone (Spironolactone) 50 Mg Tablet, 1 TAB PO DAILY 02/28/25 Lactulose (Constulose) 10 Gram/15 Ml Solution, 30 ML PO Q8H 02/28/25 Pantoprazole Sodium (Pantoprazole Sodium) 40 Mg Tablet.dr, 1 TAB PO DAILY 02/28/25 Zinc Amino Acid Chelate (Zinc) 50 Mg Tablet, 50 MG PO DAILY, TAB 01/31/25 Propranolol HCl (Propranolol HCl) 10 Mg Tablet, 1 TAB PO BID for 30 Days, #60 TAB 0 Refills 12/28/24 Metformin HCl (Metformin HCl) 1,000 Mg Tablet, 1 TAB PO BID for 30 Days, #60 TAB 0 Refills 12/28/24 Discontinued Scripts [Lactulose 20 Gm/30 Ml Udcup] 20 GM/30 ML SOLUTION No Conflict Check, 20 GM PO q8 hr for 30 Days, #1 BOTTLE 1 Refill Prov:CHLOE SANABRIA NP 12/28/24 Continued Medications: Cyanocobalamin (Vitamin B-12) (Vitamin B-12) 1,000 Mcg Tablet 1000 MCG PO DAILY for 30 Days, #30 TAB Furosemide (Furosemide) 20 Mg Tablet 1 TAB PO DAILY Lactulose (Constulose) 10 Gram/15 Ml Solution 30 ML PO Q8H Metformin HCl (Metformin HCl) 1,000 Mg Tablet 1 TAB PO BID for 30 Days, #60 TAB 0 Refills Pantoprazole Sodium (Pantoprazole Sodium) 40 Mg Tablet.dr 1 TAB PO DAILY Propranolol HCl (Propranolol HCl) 10 Mg Tablet 1 TAB PO BID for 30 Days, #60 TAB 0 Refills Rifaximin (Xifaxan) 550 Mg Tablet 1 TAB PO BID Spironolactone (Spironolactone) 50 Mg Tablet 1 TAB PO DAILY Sucralfate (Sucralfate) 1 Gram/10 Ml Oral.susp 10 ML PO QID Zinc Amino Acid Chelate (Zinc) 50 Mg Tablet 50 MG PO DAILY, TAB CHICO MCARTHUR MD March 04, 2025 15:42
[2025-03-04 16:00] VITALS: BP 115/64; PULSE 111; RESP 19; TEMP 98.2
[2025-03-07 10:51] LABS: HEPATITIS A IGM ANTIBODY Non-Reactive (Nonreactive); HEPATITIS B CORE IGM ANTIBODY Non-Reactive (Negative); HEPATITIS B SURFACE ANTIGEN Non-Reactive (Nonreactive); HEPATITIS C ANTIBODY Non-Reactive (Nonreactive)
--- NOTE | 2025-03-08 15:02 | NUR ---
Transitional Phone Call Attempted to call twice, unable to leave message.
== END 2025-03-04 17:07 | disposition home or self-care (01) ==
LOC: EDH 15:24 → EDHIP 15:25 → 3DH 22:21
PROVIDERS: ADMIT Internal Medicine; ATTEND Internal Medicine
PROC: 0W9G3ZZ Drainage of Peritoneal Cavity, Percutaneous Approach (ICD-10-PCS; 2025-03-01)
PROC: 06L38CZ Occlusion of Esophageal Vein with Extraluminal Device, Via Natural or Artificial Opening Endoscopic (ICD-10-PCS; principal; 2025-03-03)
PROC: 30233N1 Transfusion of Nonautologous Red Blood Cells into Peripheral Vein, Percutaneous Approach (ICD-10-PCS; 2025-03-03)
DX: K74.60 Unspecified cirrhosis of liver (principal); N17.9 Acute kidney failure, unspecified; D69.6 Thrombocytopenia, unspecified; E46 Unspecified protein-calorie malnutrition; I85.10 Secondary esophageal varices without bleeding; K76.6 Portal hypertension; E88.09 Other disorders of plasma-protein metabolism, not elsewhere classified; R18.8 Other ascites; D69.59 Other secondary thrombocytopenia; I10 Essential (primary) hypertension; K31.89 Other diseases of stomach and duodenum; K31.819 Angiodysplasia of stomach and duodenum without bleeding; D64.9 Anemia, unspecified; E11.9 Type 2 diabetes mellitus without complications; J45.909 Unspecified asthma, uncomplicated; K21.9 Gastro-esophageal reflux disease without esophagitis; Z88.0 Allergy status to penicillin; Z68.29 Body mass index [BMI] 29.0-29.9, adult
CPT/HCPCS: 36415; 36430; 43244; 49083; 76705; 80048; 80053; 80074; 80076; 80202; 81001; 82140; 82550; 82728; 82948; 83036; 83540; 83550; 83605; 83735; 83880; 84145; 85014; 85018; 85025; 85384; 85610; 85730; 86140; 86850; 86900; 86901; 86923; 87040; 87071; 87205; 87804; 89051; 96365; 96375; 99285; A4606; C1729; G0378; J0696; J2704; J3370; J3475; J7030; P9016; P9045; P9046; A4215; A4222; A4600; A4620; J3490

== ENCOUNTER → 2025-03-14 | Outpatient (CLI) | payer MEDICAID ==
[~2025-03-14] MED LIST changes: +FURO20TA4 PO; +LACT10SO76 PO; -Lactulose 20 Gm/30 Ml Udcup PO; +PANT40TA54 PO; +RIFA550T PO; +SPIR50TA5 PO; +SUCR1ORA15 PO
--- NOTE | 2025-03-14 09:40 | NUR ---
U/S GD PARACENTESIS PROCEDURE PERFORMED BY DR Cadence FLORES. PUNCTURE SITE LLQ AND PATIENT TOLERATED PROCEDURE WELL. TOTAL REMOVED 3.7 LITERS OF CLOUDY YELLOW FLUID. SPECIMEN SENT TO LAB. END OF PROCEDURE AT 0920. CATHETER REMOVED AND DRESSING APPLIED. NO BLEEDING NOTED. DISCHARGE INSTRUCTIONS GIVEN. VERBALIZED UNDERSTANDING. DISCHARGE WITH SPOUSE. DENIES PAIN. A&O.
--- NOTE | 2025-03-14 10:45 | HMCIMG ---
ULTRASOUND GUIDED PARACENTESIS: INDICATION: Ascites TECHNIQUE: Informed consent was obtained. Timeout performed. All elements of maximal sterile barrier technique, including hand hygiene and cutaneous antisepsis were used. Patient was placed supine. Left lower quadrant was prepped and draped in sterile fashion. Local anesthesia was applied. Then, under ultrasound guidance, a 5F centesis needle was advanced through the abdominal wall and into a pocket of fluid in the peritoneum. It yielded 3.7 L of fluid. The catheter was removed and sterile dressing applied. Blood pressure monitoring was performed during the procedure. Complications: None Blood loss: <5 mL. IMPRESSION: Successful ultrasound guided paracentesis.
[2025-03-14 13:28] LABS: TOTAL PROTEIN,BODY FLUID < 2.0 g/dL
[2025-03-14 13:29] LABS: ALBUMIN,BODY FLUID < 0.6 g/dL
[2025-03-14 13:45] LABS: APPEARANCE BODY FLUID CLEAR (CLEAR); COLOR,BODY FLUID YELLOW (LT YELLOW); SPECIMENTYPE,BODY FLUID ASCITES; TOTAL VOLUME,BODY FLUID 3700 mL
[2025-03-14 14:24] LABS: BODY FLUID RBC 96 /cu. mm.; BODY FLUID WBC 58 /cu. mm.
[2025-03-14 16:23] LABS: BF LYMPHOCYTE 86 %; BF MONOCYTE 2 %; BF TOTAL CELLS COUNTED 100
== END ==
LOC: RAH 07:55
PROVIDERS: ATTEND Internal Medicine Gastroenterology
DX: R18.8 Other ascites (principal); K74.69 Other cirrhosis of liver; J45.909 Unspecified asthma, uncomplicated; K76.6 Portal hypertension; I85.00 Esophageal varices without bleeding; G93.49 Other encephalopathy; D50.9 Iron deficiency anemia, unspecified; E11.22 Type 2 diabetes mellitus with diabetic chronic kidney disease; I12.9 Hypertensive chronic kidney disease with stage 1 through stage 4 chronic kidney disease, or unspecified chronic kidney disease; N18.31 Chronic kidney disease, stage 3a; R93.41 Abnormal radiologic findings on diagnostic imaging of renal pelvis, ureter, or bladder; I95.9 Hypotension, unspecified; Z79.899 Other long term (current) drug therapy; Z79.84 Long term (current) use of oral hypoglycemic drugs; Z98.890 Other specified postprocedural states; Z98.891 History of uterine scar from previous surgery; Z88.0 Allergy status to penicillin
CPT/HCPCS: 49083; 84157; 89051; 87071; 87205; 82042; 88108; 88305; C1729

== ENCOUNTER → 2025-03-28 | Outpatient (CLI) | payer MEDICAID ==
[~2025-03-28] MED LIST changes: +ALBUMIN HUMAN 25% 200 ML IV ONE
--- NOTE | 2025-03-28 10:10 | NUR ---
U/S GD PARACENTESIS TOLERATED PROCEDURE. PERFORMED BY DR Shanda MERRILL. PUNCTURE SITE TO LLQ. 6.0 LITERS OF YELLOW CLEAR FLUID REMOVED AND SENT TO LAB. ALBUMIN 25% 50 GRAMS GIVEN IV. END OF PROCEDURE AT 0950. DRESSING APPLIED. NO BLEEDING NOTED. DISCHARGE INSTRUCTIONS GIVEN. VERBALIZED UNDERSTANDING. DISCHARGE VIA WHEELCHAIR. DENIES PAIN. A&O.
[2025-03-28 14:03] LABS: APPEARANCE BODY FLUID CLEAR (CLEAR); COLOR,BODY FLUID YELLOW (LT YELLOW); SPECIMENTYPE,BODY FLUID ASCITES; TOTAL VOLUME,BODY FLUID 6400 mL
[2025-03-28 14:10] LABS: ALBUMIN,BODY FLUID < 0.6 g/dL; TOTAL PROTEIN,BODY FLUID < 2.0 g/dL
[2025-03-28 14:22] LABS: BODY FLUID RBC 0 /cu. mm.; BODY FLUID WBC 125 /cu. mm.
[2025-03-28 15:28] LABS: BF LYMPHOCYTE 24 %; BF MACROPHAGE 65; BF OTHER CELLS 1; BF TOTAL CELLS COUNTED 100
--- NOTE | 2025-03-28 16:09 | HMCIMG ---
US ABDOMINAL PARACENTESIS IR REASON: ASCITES TECHNIQUE: Paracentesis was performed with ultrasound guidance. The puncture site was selected in the Left lower quadrant and overlying skin prepped and draped in a sterile fashion. 1% Xylocaine infiltration was performed. Catheter was placed in the fluid using trocar technique. 6.4 L were removed. Fluid sample was submitted for laboratory evaluation. The patient showed no evidence of complication during the procedure. IMPRESSION: 1. Ultrasound-guided paracentesis.
== END ==
LOC: RAH 08:14
PROVIDERS: ATTEND Internal Medicine Gastroenterology
DX: R18.8 Other ascites (principal); K74.69 Other cirrhosis of liver; E11.22 Type 2 diabetes mellitus with diabetic chronic kidney disease; I12.9 Hypertensive chronic kidney disease with stage 1 through stage 4 chronic kidney disease, or unspecified chronic kidney disease; N18.31 Chronic kidney disease, stage 3a; J45.909 Unspecified asthma, uncomplicated; K76.6 Portal hypertension; I85.00 Esophageal varices without bleeding; G93.49 Other encephalopathy; D50.9 Iron deficiency anemia, unspecified; R93.41 Abnormal radiologic findings on diagnostic imaging of renal pelvis, ureter, or bladder; Z79.899 Other long term (current) drug therapy; Z79.84 Long term (current) use of oral hypoglycemic drugs; Z98.890 Other specified postprocedural states; Z98.891 History of uterine scar from previous surgery; Z88.0 Allergy status to penicillin
CPT/HCPCS: 49083; 84157; 89051; 87071; 87076; 87205; 82042; 88108; 88305; P9046; C1729; 96365

== ENCOUNTER 2025-03-29 05:50 | Day surgery (SDC) | payer MEDICAID ==
[~2025-03-29] VITALS: Ht 165.1 cm; Wt 74.4 kg
[2025-03-29] VITALS (11 sets, daily range): BP systolic 95–116; BP diastolic 50–69; PULSE 96–109; RESP 15–17; TEMP 96.8–97.9
[~2025-03-29 05:50] MED LIST changes: -ALBUMIN HUMAN 25% 200 ML IV ONE
[2025-03-29] MEDS: 0.9%NACL 1000ML 1,000 ML IV ONE (06:53)
[2025-03-29] MEDS ORDERED: proPOFol 10 MG/ML 20ML VIAL IV ONE (07:23)
== END 2025-03-29 08:57 | disposition home or self-care (01) ==
LOC: DAH 05:50 → ENDO 05:50
PROVIDERS: ATTEND Internal Medicine Gastroenterology
DX: I85.00 Esophageal varices without bleeding (principal); K31.7 Polyp of stomach and duodenum; K31.819 Angiodysplasia of stomach and duodenum without bleeding; I12.9 Hypertensive chronic kidney disease with stage 1 through stage 4 chronic kidney disease, or unspecified chronic kidney disease; E11.22 Type 2 diabetes mellitus with diabetic chronic kidney disease; N18.31 Chronic kidney disease, stage 3a; D50.9 Iron deficiency anemia, unspecified; K74.69 Other cirrhosis of liver; Z98.891 History of uterine scar from previous surgery; Z88.0 Allergy status to penicillin; Z79.899 Other long term (current) drug therapy; Z98.890 Other specified postprocedural states
CPT/HCPCS: 82948; 43239; 43244; 43251; J7030; J2704; A4620; A4215 ×2; A4223; A4222; A4221; A4663; A4606; J3490

== ENCOUNTER → 2025-04-11 | Outpatient (CLI) | payer MEDICAID ==
[~2025-04-11] MED LIST changes: +ALBUMIN HUMAN 25% 200 ML IV ONE; -RIFA550T PO; -SUCR1ORA15 PO
[2025-04-11 09:05] LABS: BASOPHILS # (AUTO) 0.02 K/uL (0.00-0.20); BASOPHILS % (AUTO) 0.5 % (0.0-5.0); EOSINOPHILS # (AUTO) 0.07 K/uL (0.00-0.70); EOSINOPHILS % (AUTO) 1.6 % (0.0-8.0); IMMATURE GRANULOCYTE ABSOLUTE 0.02 K/uL (0-1); LYMPHOCYTES # (AUTO) 0.5 K/uL (1.0-4.8); LYMPHOCYTES % (AUTO) 12.4 % (21.0-51.0); MEAN CORPUSCULAR HEMOGLOBIN 30.9 pg (27.0-33.0); MEAN CORPUSCULAR HGB CONC 33.2 g/dL (32.0-36.0); MEAN CORPUSCULAR VOLUME 92.9 fL (79-99); MONOCYTES # (AUTO) 0.5 K/uL (0.1-1.0); MONOCYTES % (AUTO) 11.5 % (3.0-13.0); NEUTROPHILS # (AUTO) 3.2 K/uL (1.8-7.7); NEUTROPHILS % (AUTO) 73.5 % (40.0-77.0); PLATELET COUNT (AUTO) 96 K/uL (130-400); RED BLOOD CELL COUNT(AUTO) 2.69 MIL/uL (4.00-5.50); RED CELL DISTRIBUTION WIDTH 15.5 % (11.0-15.5); WHITE BLOOD COUNT (AUTO) 4.3 K/uL (4.8-10.8)
[2025-04-11 09:12] LABS: INR 1.14 (0.85-1.15); PROTHROMBIN TIME 11.9 SEC (9.6-11.6)
[2025-04-11 09:13] LABS: PARTIAL THROMBOPLASTIN TIME 30.2 SEC (26.3-35.5)
[2025-04-11 09:17] LABS: ALBUMIN 2.6 g/dL (3.5-5.0); BILIRUBIN,TOTAL 1.7 mg/dL (0.2-1.0); CREATININE 2.1 mg/dL (0.5-1.0); POTASSIUM 4.6 mmol/L (3.5-5.1); TOTAL PROTEIN, SERUM 7.5 g/dL (6.0-8.3)
--- NOTE | 2025-04-11 10:00 | NUR ---
U/S GD PARACENTESIS BY IR PROCEDURE PERFORMED BY DR Arnol JAVIER. PUNCTURE SITE LLQ AND PATIENT TOLERATED PROCEDURE WELL. TOTAL REMOVED 5.2 LITERS FOR CLOUDY YELLOW FLUID. SPECIMEN SENT TO LAB. ALBUMIN 25% 50 GRAMS IV GIVEN DURING PARACENTESIS. END OF PROCEDURE AT 0930. CATHETER REMOVED AND DRESSING APPLIED WITH NO BLEEDING NOTED. DISCHARGE INSTRUCTIONS GIVEN AND PATIENT VERBALIZED UNDERSTANDING. DISCHARGED VIA AMBULATION AT 1000. AAO X3 WITH NO C/O DISCOMFORT.
--- NOTE | 2025-04-11 11:05 | HMCIMG ---
US ABDOMINAL PARACENTESIS IR HISTORY: Ascites COMPARISON: None TECHNIQUE: Informed consent was obtained. Risks and benefits were explained to the patient. A timeout was performed. Patient was prepped and draped in a sterile fashion. Local anesthetics was given as required. Under ultrasound guidance, ascites fluid was localized. Paracentesis was performed. FINDINGS: 5.2 L of yellowish fluid was aspirated. Less than 2 cc blood loss is noted. Patient tolerated procedure without complication. Patient left the department in good condition. IMPRESSION: 1. Uncomplicated ultrasound guidance paracentesis.
[2025-04-11] MEDS: ALBUMIN HUMAN 25% 200 ML IV ONE (12:16)
[2025-04-11 13:58] LABS: ALBUMIN,BODY FLUID < 0.6 g/dL; TOTAL PROTEIN,BODY FLUID < 2.0 g/dL
[2025-04-11 14:15] LABS: APPEARANCE BODY FLUID CLEAR (CLEAR); COLOR,BODY FLUID LT YELLOW (LT YELLOW); SPECIMENTYPE,BODY FLUID ASCITES; TOTAL VOLUME,BODY FLUID 5200 mL
[2025-04-11 14:51] LABS: BODY FLUID RBC 0 /cu. mm.; BODY FLUID WBC 58 /cu. mm.
[2025-04-11 18:28] LABS: BF LYMPHOCYTE 5 %; BF MACROPHAGE 78; BF MESOTHELIAL 1 %; BF MONOCYTE 1 %; BF TOTAL CELLS COUNTED 100
== END | disposition home or self-care (01) ==
LOC: RAH 07:33
PROVIDERS: ATTEND Internal Medicine Gastroenterology
DX: R18.8 Other ascites (principal); K74.69 Other cirrhosis of liver; I85.10 Secondary esophageal varices without bleeding; I12.9 Hypertensive chronic kidney disease with stage 1 through stage 4 chronic kidney disease, or unspecified chronic kidney disease; E11.22 Type 2 diabetes mellitus with diabetic chronic kidney disease; N18.31 Chronic kidney disease, stage 3a; R93.41 Abnormal radiologic findings on diagnostic imaging of renal pelvis, ureter, or bladder; J45.909 Unspecified asthma, uncomplicated; D63.1 Anemia in chronic kidney disease; Z79.84 Long term (current) use of oral hypoglycemic drugs; Z79.899 Other long term (current) drug therapy
CPT/HCPCS: 49083; 84157; 80053; 85025; 89051; 85610; 85730; 87071; 87205; 82042; 36415; 88108; 88305; P9046; C1729; 96365

== ENCOUNTER → 2025-05-23 | Outpatient (CLI) | payer MEDICAID ==
[~2025-05-23] MED LIST changes: -ALBUMIN HUMAN 25% 200 ML IV ONE; +ASCO500C18 PO; +BIOT1CAP3 PO; +CHOL100046 PO; +FERR-82 PO; +FOLI1 PO; -FURO20TA4 PO; +LEVO-70 PO; +MIDO10TA3 PO; +PANT40TA PO; -PANT40TA54 PO; -PROP10TA10 PO; +RIFA550T PO; -SPIR50TA5 PO
--- NOTE | 2025-05-23 09:50 | NUR ---
U/S GD PARACENTESIS PROCEDURE PERFORMED BY DR Bhumi CALLEJAS. PUNCTURE SITE LLQ AND PATIENT TOLERATED PROCEDURE WELL. TOTAL REMOVED 3.5 LITERS OF CLEAR YELLOW FLUID. SPECIMEN SENT TO LAB. END OF PROCEDURE AT 0920. CATHETER REMOVED AND DRESSING APPLIED. NO BLEEDING NOTED. DISCHARGE INSTRUCTIONS GIVEN TO PATIENT AND VERBALIZED UNDERSTANDING. DISCHARGED VIA W/C AT 0950. AAO X3 WITH NO C/O PAIN.
--- NOTE | 2025-05-23 12:26 | HMCIMG ---
US ABDOMINAL PARACENTESIS IR REASON: ASCITES TECHNIQUE: Paracentesis was performed with ultrasound guidance. The puncture site was selected in the Right lower quadrant and overlying skin prepped and draped in a sterile fashion. 1% Xylocaine infiltration was performed. Catheter was placed in the fluid using trocar technique. 3.5 L were removed. Fluid sample was submitted for laboratory evaluation. The patient showed no evidence of complication during the procedure. Patient tolerated procedure well. IMPRESSION: 1. Ultrasound-guided paracentesis.
[2025-05-23 13:58] LABS: ALBUMIN,BODY FLUID < 0.6 g/dL; TOTAL PROTEIN,BODY FLUID < 2.0 g/dL
[2025-05-23 15:03] LABS: BODY FLUID RBC 76 /cu. mm.; BODY FLUID WBC 54 /cu. mm.
[2025-05-23 15:33] LABS: BF LYMPHOCYTE 26 %; BF MACROPHAGE 33; BF MESOTHELIAL 4 %; BF MONOCYTE 3 %; BF NEUTROPHIL 32.0 %; BF OTHER CELLS 2; BF TOTAL CELLS COUNTED 100
[2025-05-23 15:34] LABS: APPEARANCE BODY FLUID CLEAR (CLEAR); COLOR,BODY FLUID LT YELLOW (LT YELLOW); SPECIMENTYPE,BODY FLUID ASCITES; TOTAL VOLUME,BODY FLUID 3500 mL
== END | disposition home or self-care (01) ==
LOC: RAH 08:00
PROVIDERS: ATTEND Internal Medicine Gastroenterology
DX: R18.8 Other ascites (principal); K74.69 Other cirrhosis of liver; I85.10 Secondary esophageal varices without bleeding; I12.9 Hypertensive chronic kidney disease with stage 1 through stage 4 chronic kidney disease, or unspecified chronic kidney disease; E11.22 Type 2 diabetes mellitus with diabetic chronic kidney disease; N18.31 Chronic kidney disease, stage 3a; R93.41 Abnormal radiologic findings on diagnostic imaging of renal pelvis, ureter, or bladder; J45.909 Unspecified asthma, uncomplicated; D63.1 Anemia in chronic kidney disease; Z88.0 Allergy status to penicillin; Z79.84 Long term (current) use of oral hypoglycemic drugs; Z79.899 Other long term (current) drug therapy
CPT/HCPCS: 49083; 84157; 89051; 87071; 87076; 87205; 82042; C1729